=== PATIENT | female | born 1935 | race Caucasian/White ===

== ENCOUNTER → 2016-10-14 | Outpatient (REF) | payer OTHER | LOC: M LAB REF 16:23 | PROVIDERS: ATTEND Surgery | DX: C44.729 Squamous cell carcinoma of skin of left lower limb, including hip (principal) ==

== ENCOUNTER 2016-10-26 09:43 | Inpatient (IN) | payer OTHER ==
[~2016-10-26] VITALS: Ht 154.9 cm; Wt 93.4 kg
[2016-10-26] MEDS ORDERED: FUROSEMIDE 40 MG/4 ML VIAL (J1940) As Ordered ONE (10:41)
[2016-10-26 10:50] LABS: BASO # 0.1 K/mm3 (0.0-0.2); BASO % 1.4 % (0.0-1.0); EOS # 0.1 K/mm3 (0.0-0.50); EOS % 1.9 % (0.0-3.0); LARGE UNSTAINED CELL # 0.1 K/mm3 (0.0-0.4); LARGE UNSTAINED CELL % 1.7 % (0.0-4.0); LYMPH # 1.5 K/mm3 (1.5-4.5); LYMPH % 22.9 % (24.0-44.0); MEAN CORPUSCULAR HGB CONC 32.6 g/dl (32.0-36.5); MONO # 0.4 K/mm3 (0.0-0.8); MONO % 6.9 % (0.0-5.0); NEUTROPHILS # 3.9 K/mm3 (1.8-7.7); NEUTROPHILS % 65.3 % (36.0-66.0); PLATELET COUNT, AUTOMATED 181 k/mm3 (150-450); RED CELL DISTRIBUTION WIDTH 14.9 % (11.5-14.5); WHITE BLOOD COUNT 5.9 K/mm3 (4.0-10.0)
[2016-10-26 11:04] LABS: ANION GAP 11 MEQ/L (8-16); BLOOD UREA NITROGEN 20 MG/DL (7-18); CALCIUM LEVEL 9.9 MG/DL (8.8-10.2); CARBON DIOXIDE LEVEL 27 MEQ/L (21-32); CHLORIDE LEVEL 105 MEQ/L (98-107); GLOMERULAR FILTRATION RATE 56.8 (>32); GLUCOSE, FASTING 106 MG/DL (83-110); MAGNESIUM LEVEL 1.9 MG/DL (1.8-2.4); POTASSIUM SERUM 3.8 MEQ/L (3.5-5.1); SODIUM LEVEL 143 MEQ/L (136-145)
[2016-10-26] MEDS ORDERED: METOPROLOL TART 25 MG TABLET As Ordered ONE (11:12)
[2016-10-26] MEDS ORDERED: METOPROLOL 5 MG/5 ML VIAL As Ordered ONE (11:12)
--- NOTE | 2016-10-26 11:23 | REP ---
CHEST, ONE VIEW: HISTORY: Shortness of breath. COMPARISON: 07/08/2006 An increase in interstitial markings is present in the lungs. The cardiac silhouette is enlarged. The pulmonary vasculature is prominent. IMPRESSION: Findings consistent with congestive heart failure. Signed by Curt Sullivan MD 10/26/2016 11:47 A
[2016-10-26] MEDS ORDERED: DIGOXIN INJ 0.5 MG/2 ML AMP (J1160) As Ordered ONE (13:04)
[2016-10-26] MEDS ORDERED: PLAV75TA38 PO (13:15)
[2016-10-26] MEDS ORDERED: GLUC500T53 PO (13:15)
[2016-10-26] MEDS ORDERED: CALC600T57 PO (13:15)
[2016-10-26] MEDS ORDERED: PROT1TAB2 PO (13:15)
[2016-10-26] MEDS ORDERED: MULT1TAB8 PO (13:15)
[2016-10-26] MEDS ORDERED: ACETAMINOPHEN TAB 650MG DOSE (2X325MG) PO PRN (13:15)
[2016-10-26] MEDS ORDERED: ZOCO20TA PO (13:15)
[2016-10-26] MEDS ORDERED: GABA600T PO (13:15)
[2016-10-26] MEDS ORDERED: LASI40TA PO (13:15)
[2016-10-26] MEDS ORDERED: MELA10TA4 PO (13:19)
[2016-10-26] MEDS ORDERED: MELO15TA4 PO (13:19)
[2016-10-26] MEDS ORDERED: METO-207 PO (13:19)
[2016-10-26] MEDS ORDERED: OMEG100011 PO (13:19)
[2016-10-26] MEDS ORDERED: TYLE650T35 PO (13:19)
[2016-10-26] MEDS ORDERED: GARL1CAP PO (13:19)
[2016-10-26] MEDS ORDERED: VITA100066 PO (13:19)
[2016-10-26] MEDS ORDERED: VALS160T PO (13:19)
[2016-10-26] MEDS ORDERED: OCUVTAB PO (13:19)
[2016-10-26] MEDS ORDERED: AMLO5TAB2 PO (13:19)
[2016-10-26] MEDS ORDERED: VITA10006 PO (13:19)
[2016-10-26 15:20] VITALS: BP 117/78
--- NOTE | 2016-10-26 16:28 | EDDOCDS ---
Nurse's Notes [facility] Name: Chantal Bush Age: 81 yrs Sex: Female : 1935 Arrival Date: 10/26/2016 Time: 09:43 Bed 10 Private MD: Juan Kimbrough Diagnosis: Persistent atrial fibrillation;Acute systolic (congestive) heart failure Presentation: 10/26 09:51 Presenting complaint: Patient states: SOB and cough for past week. seen at urgent care [facility] today dx with new onset a fib. non productive cough. denies chest pain. Adult Sepsis Screening: The patient does not have new or worsening altered mentation. Patient's respiratory rate is less than 22. Systolic blood pressure is greater than 100. Patient has a qSOFA score of 0- Negative Sepsis Screen. Transition of care: Patient was received from [facility]. 09:51 Acuity: JACKIE Level 2 [facility] 09:51 Method Of Arrival: Wheelchair [facility] 10:01 Suicide/Homicide risk assessment- the patient denies having any suicidal and/or [facility] homicidal ideations and does not present with any other emotional, behavioral or mental health complaints. Status: Patient is not a surgical services asst or dependent. Triage Assessment: 10:12 General: Appears in no apparent distress, Behavior is appropriate for age, cooperative. [facility] Pain: Denies pain. Historical: - Allergies: PENICILLINS; Aspirin (Hives); Scopolamine HBr; - Home Meds: 1. Lasix 40 mg Oral tab 1 tab once daily (Last dose: 10/26/2016 07:30) 2. Protonix 40 mg Oral TbEC 1 tab once daily (Last dose: 10/26/2016 07:30) 3. Plavix 75 mg Oral tab 1 tab once daily (Last dose: 10/26/2016 07:30) 4. multivitamin Oral cap 1 tablet daily (Last dose: 10/26/2016 07:30) 5. calcium and vitamin d 600 daily (Last dose: 10/25/2016 21:00) 6. simvastatin 20 mg Oral tab 1 tab once daily (Last dose: 10/25/2016 21:00) 7. Glucosamine oral oral daily (Last dose: 10/26/2016 07:30) 8. gabapentin 600 mg oral Tb24 twice a day (Last dose: 10/26/2016 07:30) 9. garlic 1,000 mg oral cap nightly (Last dose: 10/25/2016 21:00) 10. meloxicam 15 mg oral tab 1 tab once daily (Last dose: 10/26/2016 07:30) 11. metoprolol succinate 50 mg Tb24 1 tab nightly (Last dose: 10/25/2016 21:00) 12. Vitamin C 1,000 mg Oral tab twice a day (Last dose: 10/26/2016 07:30) 13. [place]-3 oral 4 tabs oral daily (Last dose: 10/26/2016 07:30) 14. Tylenol Arthritis Pain 650 mg oral TbER 2 tabs twice a day (Last dose: 10/26/2016 07:30) 15. Ocuvite oral 1 tab oral twice a day (Last dose: 10/26/2016 07:30) 16. Vitamin D3 1,000 unit oral chew daily (Last dose: 10/25/2016 21:00) 17. melatonin 10 mg Oral tab nightly (Last dose: 10/25/2016 21:00) 18. amlodipine 5 mg oral tab once daily (Last dose: 10/25/2016 21:00) 19. valsartan-hydrochlorothiazide 160-12.5 mg oral tab 1 tab once daily (Last dose: 10/26/2016 07:30) - PMHx: Hypercholesterolemia; Hypertension; cancer cervical; Arthritis; - PSHx: Hysterectomy; right hip rplacement; toe nail removal; Adenoidectomy; Tonsillectomy; Appendectomy; foot surgery; Bunion Surgery; Hemorrhoidectomy; - The history from nurses notes was reviewed: and I agree with what is documented. - Family history: Not pertinent. - Social history: Smoking status: Patient states was never smoker of tobacco. No barriers to communication noted, The patient speaks fluent Thai, Speaks appropriately for age. - : The pt / caregiver states he / she is on anticoagulants: Plavix. Home medication list is obtained from the patient. - Hospitalizations: : No recent hospitalization is reported. - Exposure Risk Screening:: None identified. - Immunization history:: All immunizations up-to-date. - Social history:: the patient is a non-smoker, the patient drinks alcohol, socially. Screenin:03 Screening information is obtained from the patient. Fall risk: No risks identified. js13 Assistance ADL's: requires no assistance with activities of daily living. Abuse/DV Screen: The patient / caregiver reports he/she is: not in a situation that causes fear, pain or injury. Nutritional screening: No deficits noted. Advance Directives: There is no active DNR order. home support is adequate. 10:13 Advance Directives: Currently, there is a health care proxy, larry hussein- daughter. [facility] There is an active DNR order but there is no copy available at this time. Assessment: 10:03 General: Appears in no apparent distress, Behavior is appropriate for age, cooperative. js13 Pain: Denies pain. Neurological: Level of Consciousness is awake, alert, obeys commands. Cardiovascular: Rhythm is atrial fibrillation with rapid ventricular response Chest pain is denied. Respiratory: Airway is patent Respiratory effort is even, unlabored, Respiratory pattern is regular, Breath sounds with rales bilaterally. in left lower lobe and right lower lobe Reports shortness of breath at rest on exertion. GI: Abdomen is obese, Bowel sounds Abd is soft and non tender. Derm: Skin is pink, warm & dry. 11:00 General: Appears in no apparent distress, comfortable, Behavior is appropriate for age, js13 cooperative. Pain: Denies pain. Neurological: Level of Consciousness is awake, alert, obeys commands. Cardiovascular: Rhythm is atrial fibrillation with rapid ventricular response Chest pain is denied. Respiratory: Airway is patent Respiratory effort is even, unlabored, Respiratory pattern is regular, Derm: Skin is pink, warm & dry. 12:12 Adult Sepsis Screening: The patient does not have new or worsening altered mentation. js13 Patient's respiratory rate is less than 22. Systolic blood pressure is greater than 100. Patient has a qSOFA score of 0- Negative Sepsis Screen. General: Appears in no apparent distress, comfortable, Behavior is appropriate for age, cooperative. Pain: Denies pain. Neurological: Level of Consciousness is awake, alert, obeys commands. Cardiovascular: Rhythm is atrial fibrillation with rapid ventricular response Chest pain is denied. Respiratory: Airway is patent Respiratory effort is even, unlabored, Respiratory pattern is regular, symmetrical. GI: Abdomen is obese. Derm: Skin is pink, warm & dry. 13:36 General: Appears in no apparent distress, comfortable, Behavior is appropriate for age, js13 cooperative. Pain: Denies pain. Neurological: Level of Consciousness is awake, alert, obeys commands. Cardiovascular: Rhythm is atrial fibrillation with rapid ventricular response Chest pain is denied. Respiratory: Airway is patent Respiratory effort is even, unlabored, Respiratory pattern is regular, symmetrical, Breath sounds with rales bilaterally. in left lower lobe and right lower lobe. Derm: Skin is pink, warm & dry. 14:34 Adult Sepsis Screening: The patient does not have new or worsening altered mentation. js13 Patient's respiratory rate is less than 22. Systolic blood pressure is greater than 100. Patient has a qSOFA score of 0- Negative Sepsis Screen. General: Appears in no apparent distress, comfortable, Behavior is appropriate for age, cooperative. Pain: Denies pain. Neurological: Level of Consciousness is awake, alert, obeys commands. Cardiovascular: Rhythm is atrial fibrillation with rapid ventricular response Chest pain is denied. Respiratory: Airway is patent Respiratory effort is even, unlabored, Respiratory pattern is regular, symmetrical, Breath sounds with rales bilaterally. in right lower lobe and left lower lobe. GI: Abdomen is obese. Derm: Skin is pink, warm & dry. Vital Signs: 09:45 BP 109 / 66; Pulse 153; Resp 22; Pulse Ox 98% on R/A; Weight 99.79 kg; Height 5 ft. 1 js13 in. (154.94 cm); Pain 0/10; 10:07 Temp 98.0(TE); dem1 10:22 BP 129 / 93 (auto/); js13 10:22 Pulse 144 MON; Resp 18; Pulse Ox 97% on 2 lpm NC; js13 10:37 BP 109 / 76 (auto/); js13 10:37 Pulse 144 MON; Resp 18; Pulse Ox 97% on 2 lpm NC; js13 11:15 BP 131 / 89 (auto/); js13 11:15 Pulse 162 MON; Resp 18; Pulse Ox 98% on 2 lpm NC; js13 11:20 BP 123 / 81 (auto/); js13 11:20 Pulse 136 MON; Resp 18; Pulse Ox 98% on 2 lpm NC; js13 11:27 BP 128 / 88 (auto/); js13 11:27 Pulse 132 MON; Resp 18; Pulse Ox 98% on 2 lpm NC; js13 11:29 BP 122 / 83 (auto/); js13 11:29 Pulse 128 MON; Resp 18; Pulse Ox 98% on 2 lpm NC; js13 11:46 BP 107 / 80 (auto/); js13 11:46 Pulse 124 MON; Resp 16; Pulse Ox 99% on 2 lpm NC; js13 12:17 BP 99 / 62 (auto/); js13 12:17 Pulse 118 MON; Resp 18; Pulse Ox 99% on 2 lpm NC; js13 12:31 BP 101 / 64 (auto/); js13 12:31 Pulse 118 MON; Resp 18; Pulse Ox 97% on 2 lpm NC; js13 14:34 BP 108 / 66; Pulse 124 MON; Resp 18; Temp 98.1(O); Pulse Ox 98% on 2 lpm NC; js13 09:45 Body Mass Index 41.57 (99.79 kg, 154.94 cm) js13 11:15 FIRST DOSE OF LOPRESSOR IVP js13 11:20 SECOND DOSE OF LOPRESSOR IVP js13 11:27 THIRD DOSE OF LOPRESSOR IVP js13 Vitals: 09:45 Log In Time: October 26, 2016 at 09:43. cmb ED Course: 09:45 Patient visited by Consuelo Phipps. cmb 09:45 Juan Kimbrough is Private Physician. cmb 09:45 Patient moved to Waiting cmb 09:47 RN notified that patient meets Red Flag criteria. cmb 09:50 Jennifer Mera,RN is Primary Nurse. mcp 09:50 Fabiana Quiroz,RN is Primary Nurse. mcp 09:50 Patient moved to 10 mcp 09:52 Patient visited by Gilda Gomez, JENNIFER. srm 09:52 Triage Initiated srm 09:56 Tae Sarmiento MD is Attending Physician. pc 09:57 Patient visited by Galo Roberts. dem1 09:57 EKG done. (by ED staff). Reviewed by Tae Sarmiento MD. dem1 09:59 Patient visited by Janel Ortiz PCA. ct3 09:59 Accompanied by Friend, Patient has correct armband on for positive identification. ct3 Placed in gown. Bed in low position. Call light in reach. Side rails up X2. phototypesetting equipment monitor on. Pulse ox on. NIBP on. 10:03 The patient / caregiver is instructed regarding the plan of care and ED course. js13 10:03 Inserted saline lock: 18 gauge in left antecubital area and blood collected. The js13 patient tolerated the procedure well. No procedures done that require assistance. Labs drawn. (by ED staff). Sent per order to lab. Labs/Blood culture drawn. 10:08 Patient visited by Galo Roberts. dem1 10:39 Patient visited by Tae Sarmiento MD. pc 11:17 Patient visited by Galo Roberts. dem1 11:17 Assisted to bedside commode. dem1 11:23 [facility] Payment Agreement was scanned into [employer] and attached to record. mm15 11:41 Patient visited by Fabiana Quiroz RN. js13 11:45 Chest, 1 View Returned. EDMS 12:13 Patient visited by Fabiana Quiroz RN. js13 12:51 Patient visited by Janel Ortiz PCA. ct3 12:56 Deepika Loredo is Hospitalizing Provider. pc 14:05 Diet: Patient given regular meal. dem1 14:06 Patient visited by Galo Roberts. dem1 14:44 Primary Nurse role handed off by Jennifer Mera RN js13 16:08 Discontinued IV lock intact, bleeding controlled, pressure dressing applied. js13 16:09 Inserted saline lock: 20 gauge in right hand and blood collected. The patient tolerated js13 the procedure well. Administered Medications: 10:44 Drug: Furosemide 80 mg [furosemide 10 mg/mL injection solution (8 mL)] Route: IVP; js13 Site: left antecubital; 11:15 Drug: Metoprolol 25 mg [metoprolol tartrate 25 mg tablet (1 tabs)] Route: PO; 13 11:15 Drug: Metoprolol 5 mg [metoprolol 5 mg/5 mL intravenous solution (5 mL)] Route: IVP; js13 Site: left antecubital; 11:20 Drug: Metoprolol 5 mg [metoprolol 5 mg/5 mL intravenous solution (5 mL)] Route: IVP; js13 Site: left antecubital; 11:20 Follow up: Response: Cardiac Rhythm is unchanged js13 11:25 Drug: Metoprolol 5 mg [metoprolol 5 mg/5 mL intravenous solution (5 mL)] Route: IVP; js13 Site: left antecubital; 11:25 Follow up: Response: Cardiac Rhythm is unchanged js13 11:30 Follow up: Response: Cardiac Rhythm is unchanged js13 13:06 Drug: Digoxin 0.25 mg [digoxin 250 mcg/mL injection solution (1 mL)] Route: IVP; Site: [facility] left antecubital; Output: 12:11 Urine: 800.00ml (Voided); Total: 800.00ml. js13 14:00 Urine: 600.00ml (Voided); Total: 1400.00ml. 13 Order Results: Lab Order: B-Type Natiuretic Peptide; SPEC'M 10/26/16 10:00 Test: BRAIN NATRIURETIC PEPTIDE; Value: 944; Range: <100; Abnormal: Above high normal; Units: PG/ML; Status: F Lab Order: Basic Metabolic Profile; SPEC'M 10/26/16 10:00 Test: GLUCOSE, FASTING; Value: 106; Range: 83-110; Units: MG/DL; Status: F Test: BLOOD UREA NITROGEN; Value: 20; Range: 7-18; Abnormal: Above high normal; Units: MG/DL; Status: F Test: CREATININE FOR GFR; Value: 1.00; Range: 0.55-1.02; Units: MG/DL; Status: F Test: GLOMERULAR FILTRATION RATE; Value: 56.8; Range: >32; Status: F Test: SODIUM LEVEL; Value: 143; Range: 136-145; Units: MEQ/L; Status: F Test: POTASSIUM SERUM; Value: 3.8; Range: 3.5-5.1; Units: MEQ/L; Status: F Test: CHLORIDE LEVEL; Value: 105; Range: 98-107; Units: MEQ/L; Status: F Test: CARBON DIOXIDE LEVEL; Value: 27; Range: 21-32; Units: MEQ/L; Status: F Test: ANION GAP; Value: 11; Range: 8-16; Units: MEQ/L; Status: F Test: CALCIUM LEVEL; Value: 9.9; Range: 8.8-10.2; Units: MG/DL; Status: F Test Note: ; Units are mL/min/1.73 m2 Chronic Kidney Disease Staging per NKF: Stage I & II GFR >=60 Normal to Mildly Decreased Stage III GFR 30-59 Moderately Decreased Stage IV GFR 15-29 Severely Decreased Stage V GFR <15 Very Little GFR Left ESRD GFR <15 on SCRUB TECH Lab Order: CBC with Diff; SPEC'M 10/26/16 10:00 Test: WHITE BLOOD COUNT; Value: 5.9; Range: 4.0-10.0; Units: K/mm3; Status: F Test: RED BLOOD COUNT; Value: 4.77; Range: 4.00-5.40; Units: M/mm3; Status: F Test: HEMOGLOBIN; Value: 15.2; Range: 12.0-16.0; Units: g/dl; Status: F Test: HEMATOCRIT; Value: 46.7; Range: 36.0-47.0; Units: %; Status: F Test: MEAN CORPUSCULAR VOLUME; Value: 98.0; Range: 80.0-96.0; Abnormal: Above high normal; Units: fl; Status: F Test: MEAN CORPUSCULAR HEMOGLOBIN; Value: 32.0; Range: 27.0-33.0; Units: pg; Status: F Test: MEAN CORPUSCULAR HGB CONC; Value: 32.6; Range: 32.0-36.5; Units: g/dl; Status: F Test: RED CELL DISTRIBUTION WIDTH; Value: 14.9; Range: 11.5-14.5; Abnormal: Above high normal; Units: %; Status: F Test: PLATELET COUNT, AUTOMATED; Value: 181; Range: 150-450; Units: k/mm3; Status: F Test: NEUTROPHILS %; Value: 65.3; Range: 36.0-66.0; Units: %; Status: F Test: LYMPH %; Value: 22.9; Range: 24.0-44.0; Abnormal: Below low normal; Units: %; Status: F Test: MONO %; Value: 6.9; Range: 0.0-5.0; Abnormal: Above high normal; Units: %; Status: F Test: EOS %; Value: 1.9; Range: 0.0-3.0; Units: %; Status: F Test: BASO %; Value: 1.4; Range: 0.0-1.0; Abnormal: Above high normal; Units: %; Status: F Test: LARGE UNSTAINED CELL %; Value: 1.7; Range: 0.0-4.0; Units: %; Status: F Test: NEUTROPHILS #; Value: 3.9; Range: 1.8-7.7; Units: K/mm3; Status: F Test: LYMPH #; Value: 1.5; Range: 1.5-4.5; Units: K/mm3; Status: F Test: MONO #; Value: 0.4; Range: 0.0-0.8; Units: K/mm3; Status: F Test: EOS #; Value: 0.1; Range: 0.0-0.50; Units: K/mm3; Status: F Test: BASO #; Value: 0.1; Range: 0.0-0.2; Units: K/mm3; Status: F Test: LARGE UNSTAINED CELL #; Value: 0.1; Range: 0.0-0.4; Units: K/mm3; Status: F Lab Order: Cardiac Injury Profile; SPEC' 10/26/16 10:00 Test: CPK CREATINE PHOSPHOKINASE; Value: 37; Range: 26-192; Units: U/L; Status: F Test: CK-MB VALUE MASS; Value: 2.9; Range: 0.0-3.6; Units: NG/ML; Status: F Test: MB/CK RELATIVE INDEX; Value: 7.83; Range: < OR =4; Abnormal: Above high normal; Status: F Test Note: ; DIAGNOSIS CRITERIA MMB ng/ml Relative Index (RI) NON-AMI < or = 5 N/A DAIGLE ZONE > 5 < or = 4 AMI > 5 > 4 Lab Order: Troponin; SPEC' 10/26/16 10:00 Test: TROPONIN I; Value: < 0.02; Range: < 0.10; Units: NG/ML; Status: F Test Note: ; Troponin I Reference Interval for [facility] LOCI: 99th Percentile= 0.00-0.045 ng/ml Risk Stratification: <= 0.10 ng/ml Decreased Risk for Adverse Clinical Events. 0.10-1.50 ng/ml Increased Risk for Adverse Clinical Events. Evaluation of additional criterion and/or repeat testing in 2-6 hours is suggested to rule out myocardial damage. >= 1.50 ng/ml Indicative of Myocardial Injury. Lab Order: TSH with Free T4; SPEC'M 10/26/16 10:00 Test: THYROID STIMULATING HORMONE; Value: 6.320; Range: 0.358-3.740; Abnormal: Above high normal; Units: uIU/ML; Status: F Test: FREE T4; Value: 1.20; Range: 0.76-1.46; Units: NG/DL; Status: F Lab Order: Magnesium Level; SPEC'M 10/26/16 10:00 Test: MAGNESIUM LEVEL; Value: 1.9; Range: 1.8-2.4; Units: MG/DL; Status: F Radiology Order: Chest, 1 View Test: Chest, 1 View REASON FOR EXAMINATION: Shortness of Breath; CHEST, ONE VIEW:; ; HISTORY: Shortness of breath.; ; COMPARISON: 07/08/2006; ; An increase in interstitial markings is present in the lungs. The cardiac; silhouette is enlarged. The pulmonary vasculature is prominent.; ; IMPRESSION:; ; Findings consistent with congestive heart failure.; ; ; Signed by; Curt Sullivan MD 10/26/2016 11:47 A; Outcome: 12:56 Decision to Hospitalize by Provider. 14:36 Discharge Assessment: Patient awake, alert and oriented x 3. No cognitive and/or js13 functional deficits noted. Patient verbalized understanding of disposition instructions. patient administered narcotics - no. The following High Risk Discharge criteria are identified: None. Condition: stable. No special radiology studies were completed. Admission hand-off: Report Faxed. Property :Personal belongings accompany Pt. 15:20 Admission hand-off: Report Faxed Fax receipt verified by Bette Curry refrigeration unit repairer. Unit js13 warehouse shipping receiving clerk states that the Franchesca RN taking patient is busy doing two discharges and has not looked at SBAR yet and she will have RN call when she is ready.. 16:09 Admitted to PCU accompanied by nurse, accompanied by tech, family with patient, via js13 stretcher, with oxygen, on monitor, with chart. 16:27 Patient left the ED. js13 Signatures: Dispatcher [employer] Tae Byrne MD MD pc Michelson, Staci, RN RN srm Peters, Mary RN Janel Santiago mcp, LATIN PROFESSOR LATIN PROFESSOR ct3 Galo Roberts dem1 Fabiana Quiroz RN RN [facility] Consuelo Phipps cmb Uma Sherman mm15 Corrections: (The following items were deleted from the chart) 09:47 09:45 BP 109 / 66; Resp 24bpm; 99.79 kg; Height 5 ft. 1 in.; BMI: 41.5; Pain 0/10; cmb cmb 10:07 09:45 BP 109 / 66; Resp 22bpm; 99.79 kg; Height 5 ft. 1 in.; BMI: 41.5; Pain 0/10; cmb js13 10:17 10:12 Home Meds: diovan 160/12.5mg daily (Last Dose: Unknown); srm srm 10:17 10:12 Home Meds: Amlodipine Oral once daily (Last Dose: 10/25/2016 21:00); srm srm 12:59 10:03 Respiratory: Airway is patent Respiratory effort is even, unlabored, Respiratory js13 pattern is regular, Breath sounds are clear Reports shortness of breath at rest on exertion js13 MTDD
--- NOTE | 2016-10-26 16:28 | EDDOCDS ---
Physician Documentation [facility] Name: Chantal Bush Age: 81 yrs Sex: Female : 1935 Arrival Date: 10/26/2016 Time: 09:43 Bed 10 Private MD: Juan Kimbrough Disposition: 10/26 12:54 Critical Care:. pc Disposition: 10/26/16 12:56 Hospitalization ordered by Deepika Loredo for Inpatient Admission. Preliminary diagnosis are Persistent atrial fibrillation, Acute systolic (congestive) heart failure. - Bed requested for PCU. - Status is Inpatient Admission. [id number] - Condition is Stable. - Problem is new. - Symptoms have improved. HPI: 10:58 This 81 yrs old Female presents to ER via Wheelchair with complaints of pc Irregular Pulse. 10:58 The history is obtained from the patient, the patient's family/friend. She has been pc SOBOE for 2+ weeks, developed a non-productive cough a week ago and was found to be in AFib at an urgent care today. She denies any chest pain, fevers or chills. She does not take her Lasix every day as prescribed but did this morning. She has a current heart rate of 145 in AFib and she has no sensation of the same. At their worst, the symptoms were moderate. In the emergency department, the symptoms are moderate. The patient has not experienced similar symptoms in the past. Historical: - Allergies: PENICILLINS; Aspirin (Hives); Scopolamine HBr; - Home Meds: 1. Lasix 40 mg Oral tab 1 tab once daily (Last dose: 10/26/2016 07:30) 2. Protonix 40 mg Oral TbEC 1 tab once daily (Last dose: 10/26/2016 07:30) 3. Plavix 75 mg Oral tab 1 tab once daily (Last dose: 10/26/2016 07:30) 4. multivitamin Oral cap 1 tablet daily (Last dose: 10/26/2016 07:30) 5. calcium and vitamin d 600 daily (Last dose: 10/25/2016 21:00) 6. simvastatin 20 mg Oral tab 1 tab once daily (Last dose: 10/25/2016 21:00) 7. Glucosamine oral oral daily (Last dose: 10/26/2016 07:30) 8. gabapentin 600 mg oral Tb24 twice a day (Last dose: 10/26/2016 07:30) 9. garlic 1,000 mg oral cap nightly (Last dose: 10/25/2016 21:00) 10. meloxicam 15 mg oral tab 1 tab once daily (Last dose: 10/26/2016 07:30) 11. metoprolol succinate 50 mg Tb24 1 tab nightly (Last dose: 10/25/2016 21:00) 12. Vitamin C 1,000 mg Oral tab twice a day (Last dose: 10/26/2016 07:30) 13. [place]-3 oral 4 tabs oral daily (Last dose: 10/26/2016 07:30) 14. Tylenol Arthritis Pain 650 mg oral TbER 2 tabs twice a day (Last dose: 10/26/2016 07:30) 15. Ocuvite oral 1 tab oral twice a day (Last dose: 10/26/2016 07:30) 16. Vitamin D3 1,000 unit oral chew daily (Last dose: 10/25/2016 21:00) 17. melatonin 10 mg Oral tab nightly (Last dose: 10/25/2016 21:00) 18. amlodipine 5 mg oral tab once daily (Last dose: 10/25/2016 21:00) 19. valsartan-hydrochlorothiazide 160-12.5 mg oral tab 1 tab once daily (Last dose: 10/26/2016 07:30) - PMHx: Hypercholesterolemia; Hypertension; cancer cervical; Arthritis; - PSHx: Hysterectomy; right hip rplacement; toe nail removal; Adenoidectomy; Tonsillectomy; Appendectomy; foot surgery; Bunion Surgery; Hemorrhoidectomy; - The history from nurses notes was reviewed: and I agree with what is documented. - Family history: Not pertinent. - Social history: Smoking status: Patient states was never smoker of tobacco. No barriers to communication noted, The patient speaks fluent [place], Speaks appropriately for age. - : The pt / caregiver states he / she is on anticoagulants: Plavix. Home medication list is obtained from the patient. - Hospitalizations: : No recent hospitalization is reported. - Exposure Risk Screening:: None identified. - Immunization history:: All immunizations up-to-date. - Social history:: the patient is a non-smoker, the patient drinks alcohol, socially. ROS: 10:58 All systems are negative except as listed. pc Exam: 10:58 General Appearance: no acute distress, alert. pc 10:58 EENT: normal eye inspection, ears, nose and throat normal, pharynx normal, mucous membranes moist 10:58 Neck: The exam reveals no acute abnormalities. ROM is normal and painless. No nuchal rigidity is noted.. 10:58 Respiratory: no respiratory distress, chest non-tender, Breath sounds: rales, in the left posterior lower lobe and right posterior lower lobe. 10:58 CVS: strong peripheral pulses, normal capillary refill, the patient is tachycardic, at 145 bpm, irregularly irregular there is a murmur, diastolic, grade 1 out of 6. 10:58 Abdomen: soft, non-tender, no organomegaly, normal bowel sounds. 10:58 Back: normal inspection. 10:58 Skin: skin color is normal, warm, dry. 10:58 Extremities: with pedal edema noted, is 3+ edema bilaterally 10:58 Neuro: oriented x 3, cranial nerves normal as tested, no motor deficits, no sensory deficits. 10:58 Psych: normal mood. Vital Signs: 09:45 BP 109 / 66; Pulse 153; Resp 22; Pulse Ox 98% on R/A; Weight 99.79 kg / 220 lbs; Height js13 5 ft. 1 in. (154.94 cm); Pain 0/10; 10:07 Temp 98.0(TE); dem1 10:22 BP 129 / 93 (auto/); js13 10:22 Pulse 144 MON; Resp 18; Pulse Ox 97% on 2 lpm NC; js13 10:37 BP 109 / 76 (auto/); js13 10:37 Pulse 144 MON; Resp 18; Pulse Ox 97% on 2 lpm NC; js13 11:15 BP 131 / 89 (auto/); js13 11:15 Pulse 162 MON; Resp 18; Pulse Ox 98% on 2 lpm NC; js13 11:20 BP 123 / 81 (auto/); js13 11:20 Pulse 136 MON; Resp 18; Pulse Ox 98% on 2 lpm NC; js13 11:27 BP 128 / 88 (auto/); js13 11:27 Pulse 132 MON; Resp 18; Pulse Ox 98% on 2 lpm NC; js13 11:29 BP 122 / 83 (auto/); js13 11:29 Pulse 128 MON; Resp 18; Pulse Ox 98% on 2 lpm NC; js13 11:46 BP 107 / 80 (auto/); js13 11:46 Pulse 124 MON; Resp 16; Pulse Ox 99% on 2 lpm NC; js13 12:17 BP 99 / 62 (auto/); js13 12:17 Pulse 118 MON; Resp 18; Pulse Ox 99% on 2 lpm NC; js13 12:31 BP 101 / 64 (auto/); js13 12:31 Pulse 118 MON; Resp 18; Pulse Ox 97% on 2 lpm NC; js13 14:34 BP 108 / 66; Pulse 124 MON; Resp 18; Temp 98.1(O); Pulse Ox 98% on 2 lpm NC; js13 09:45 Body Mass Index 41.57 (99.79 kg, 154.94 cm) js13 11:15 FIRST DOSE OF LOPRESSOR IVP js13 11:20 SECOND DOSE OF LOPRESSOR IVP js13 11:27 THIRD DOSE OF LOPRESSOR IVP 13 MDM: 09:52 ECG WITH READING ER PHYS+CARDIAG ordered. EDMS 10:40 Furosemide 80 mg IVP once ordered. pc 10:40 Ethnoarchaeologist/Pulse Ox/q 15 min VS ordered. pc 10:40 IV Saline Lock ordered. pc 10:40 Oxygen at 4L/Min NC or Home dosage ordered. pc 10:40 Rhythm Strip to chart ordered. pc 10:41 B-Type Natiuretic Peptide Ordered. EDMS 10:41 Basic Metabolic Profile Ordered. EDMS 10:41 CBC with Diff Ordered. EDMS 10:41 Cardiac Injury Profile Ordered. EDMS 10:41 Troponin Ordered. EDMS 10:41 TSH with Free T4 Ordered. EDMS 10:41 Magnesium Level Ordered. EDMS 10:41 Chest, 1 View Ordered. EDMS 10:58 Differential Diagnosis: AFib - new onset with no clear time of onset; CHF; pc noncompliance. Plan: labs, EKG, CXR. Test interpretation: EKG. 11:08 B-Type Natiuretic Peptide Reviewed. pc 11:08 Basic Metabolic Profile Reviewed. pc 11:08 CBC with Diff Reviewed. pc 11:08 Troponin Reviewed. pc 11:08 Magnesium Level Reviewed. pc 11:09 Metoprolol (Tartrate) 25 mg PO once ordered. pc 11:09 Metoprolol 5 mg IVP every 5 minutes; Hold for SBP < 100 or HR < 60. x3 ordered. pc 11:11 TSH with Free T4 Reviewed. pc 11:12 Basic Metabolic Profile Reviewed. pc 11:12 Cardiac Injury Profile Reviewed. pc 11:12 TSH with Free T4 Reviewed. pc 11:12 Troponin Reviewed. pc 11:12 Magnesium Level Reviewed. pc 11:20 Financial registration complete. mm15 11:23 [facility] Payment Agreement was scanned into [employer] and attached to record. mm15 12:39 Chest, 1 View Reviewed. pc 12:39 BED REQUEST+ADM ordered. EDMS 12:53 Digoxin 0.25 mg IVP once ordered. pc 12:54 Data reviewed: old medical records, vital signs, nurses notes, EKG(s), lab test pc results, all radiology studies and available results. Test interpretation: LAB - all labs as ordered have been reviewed, interpreted and considered in the overall management of the clinical presentation; X-RAY - interpreted by Radiologist and personally reviewed, 1 view chest congestive heart failure. The patient has been re-examined and re-evaluated. The patient's symptoms have mildly improved after treatment. Physician consultation: Dr. Hadley Hughes was contacted at 12:55, regarding consult. 12:54 Physician consultation: Dr. Deepika Loredo was contacted at 12:55, regarding admission. pc Disposition: The historical points, examination findings, and any diagnostic results supporting the provided diagnosis, were discussed with the patient or legal guardian. The need for further work-up and/or treatment in the hospital was explained. 13:22 Admission / Observation Status ordered. EDMS 13:22 NO ADDED SALT DIET ordered. EDMS 13:34 ECHOCARD,DOPPLER/COLOR FLOW ordered. EDMS 13:34 TROPONIN Ordered. EDMS 13:34 TROPONIN Ordered. EDMS EC:58 Rate is 146 beats/min. Rhythm is irregularly irregular, A fib. QRS [place] is Normal. QRS pc interval is normal. QT interval is normal. No Q waves. T waves are Normal. ST Segment is depressed in leads II, aVL, V4, V5, V6. Clinical impression: Nonspecific ST-T changes and Atrial Fibrillation with RVR. Administered Medications: 10:44 Drug: Furosemide 80 mg [furosemide 10 mg/mL injection solution (8 mL)] Route: IVP; js13 Site: left antecubital; 11:15 Drug: Metoprolol 25 mg [metoprolol tartrate 25 mg tablet (1 tabs)] Route: PO; 13 11:15 Drug: Metoprolol 5 mg [metoprolol 5 mg/5 mL intravenous solution (5 mL)] Route: IVP; 13 Site: left antecubital; 11:20 Drug: Metoprolol 5 mg [metoprolol 5 mg/5 mL intravenous solution (5 mL)] Route: IVP; 13 Site: left antecubital; 11:20 Follow up: Response: Cardiac Rhythm is unchanged 13 11:25 Drug: Metoprolol 5 mg [metoprolol 5 mg/5 mL intravenous solution (5 mL)] Route: IVP; 13 Site: left antecubital; 11:25 Follow up: Response: Cardiac Rhythm is unchanged 13 11:30 Follow up: Response: Cardiac Rhythm is unchanged 13 13:06 Drug: Digoxin 0.25 mg [digoxin 250 mcg/mL injection solution (1 mL)] Route: IVP; Site: [facility] left antecubital; Critical Care Time: 12:54 Critical care time: Bedside Care: 25 minutes, Consultation: 20 minutes, Family pc Intervention: 15 minutes. Total time: 60 minutes Signatures: Dispatcher [employer] Tae Byrne MD MD pc Michelson, Staci, RN RN srm Reynaldo Houser RN RN [id number] Fabiana Quiroz RN RN js13 Uma Sherman mm15 The chart was reviewed and I authenticate all verbal orders and agree with the evaluation and treatment provided.Corrections: (The following items were deleted from the chart) 10:17 10:12 Home Meds: diovan 160/12.5mg daily (Last Dose: Unknown); srm srm 10:17 10:12 Home Meds: Amlodipine Oral once daily (Last Dose: 10/25/2016 21:00); srm srm 11:10 10:58 She has been SOBOE for 2+ weeks, developed a non-productive cough a week ago and pc was found to be in AFib at an urgent care today. She denies any chest pain, fevers or chills. She does not take her Lasix every day as prescribed but did this morning. pc Attachments: 11:23 [facility] Payment Agreement mm15 MTDD
[2016-10-26 16:40] VITALS: BP_SYST 104
--- NOTE | 2016-10-26 17:11 | HPE ---
DATE OF ADMISSION: 10/26/2016 PRIMARY CARE PROVIDER: Dr. Juan Kimbrough REASON FOR ADMISSION: Shortness of breath. HISTORY OF PRESENT ILLNESS: The patient is an 81-year-old female with a past medical history significant for hypertension, hyperlipidemia, history of cervical cancer, lower extremity edema, who presented to the emergency room complaining of shortness of breath that has been getting worse over the past week. She was seen today at an urgent care clinic. She was found to be in atrial fibrillation. The patient stated that over the past week her shortness of breath has been getting progressively worse. Last night, she was unable to sleep or lay flat. She has been having a nonproductive cough. Denies any chest pain. Denies any palpitations. Denies any fevers but has been complaining of some chills. She states her shortness of breath is also worse with activity. The patient denies any cardiac workup in the past and was never seen by cardiology. In the emergency room, the patient was found to have a heart rate in the 150s and 140s. She was given multiple doses of metoprolol, oral and IV. Her heart rate came down 120s. However, her blood pressure also dropped to 99/62. Dr. Hughes was called from the emergency room. He recommended to start the patient on digoxin and she got a loading dose of 0.25. During my examination, the patient denied any chest pain or palpitations. Denied any fevers or chills. She was, however, complaining of some shortness of breath but stated it has improved. She was on two liters of nasal cannula. She appears comfortable. Denied any nausea, vomiting, or diarrhea. No other symptoms. REVIEW OF SYSTEMS: A 12-point review of systems was obtained. All of which was negative except for those mentioned above. PAST MEDICAL HISTORY: Significant for: 1. Hypertension. 2. Hyperlipidemia. 3. History of cervical cancer. 4. History of arthritis. 5. History of lower extremity edema. 6. History of skin squamous cell carcinoma. PAST SURGICAL HISTORY: Significant for: 1. Hysterectomy. 2. Right hip replacement. 3. Toenail removal. 4. Adenoidectomy. 5. Tonsillectomy. 6. Appendectomy. 7. Bunion surgery. 8. Hemorrhoidectomy. SOCIAL HISTORY: The patient denies any tobacco or alcohol use. Lives at home alone. FAMILY HISTORY: Noncontributory. ALLERGIES: PENICILLIN reaction hives, ASPIRIN reaction hives, SCOPOLAMINE PATCH reaction vertigo. HOME MEDICATIONS: - acetaminophen 1300 mg by mouth twice a day - amlodipine 5 mg by mouth at bedtime - vitamin C 1000 mg by mouth twice a day - calcium and vitamin D one tablet by mouth daily - vitamin D 1000 units by mouth daily - Plavix 75 mg by mouth daily - Lasix 40 mg by mouth daily - gabapentin 600 mg by mouth twice a day - glucosamine 500 mg by mouth daily - garlic 1000 mg by mouth at bedtime - melatonin 10 mg at bedtime - meloxicam 50 mg by mouth daily - metoprolol 50 mg at bedtime - multivitamin one tablet daily - Ocuvite one tablet by mouth twice a day - omega-3 one tablet by mouth daily - Protonix 40 mg by mouth daily - Zocor 20 mg at bedtime - valsartan/HCTZ one tablet by mouth daily The patient stated that she has not been taking her Lasix regularly, has been keeping doses stating that she was told to only take it as needed. She took a dose this morning and the dose prior to that was a week ago. FAMILY HISTORY: Noncontributory. PHYSICAL EXAMINATION: VITAL SIGNS: On admission, blood pressure 109/66, pulse 153, respiratory rate 22, temperature 98, pulse oximetry 98% on room air. HEENT: Pupils are equal, round, and reactive to light and accommodation. NECK: Supple. No jugular venous distention (JVD). LUNGS: Clear to auscultation bilaterally. CARDIOVASCULAR: Irregular rate and rhythm. ABDOMEN: Soft, nontender, nondistended. EXTREMITIES: +2 edema bilaterally. SKIN: No obvious lesions. NEUROLOGIC: Cranial nerves II-XII grossly intact. No focal deficits. LABORATORY FINDINGS: WBC is 5.9, hemoglobin 15.2, hematocrit 46.7, platelet count 181. Sodium 143, potassium 3.8, chloride 105, BUN 20, creatinine 1, fasting glucose 106, magnesium 1.9, troponin less than 0.02, BNP 944, TSH 6.32, T4 1.2. Chest x-ray finding consistent with congestive heart failure. ASSESSMENT AND PLAN: 1. Acute congestive heart failure. The patient has no prior history of congestive heart failure. However, the patient had an elevated brain natriuretic peptide (BNP) of 944. Chest x-ray showed signs of congestive heart failure. The patient had bilateral lower extremity edema. She received one dose of Lasix in the emergency room, 80 mg IV. We will resume IV Lasix 40 mg every eight hours with hold parameters, to hold for a systolic blood pressure of less than 100. We will order an echocardiogram. The patient has no history of an echocardiogram. Dr. Hughes was called from the emergency room. We will defer to primary care for cardiac consultation. She received one dose of digoxin 0.25 in the emergency room. We will resume digoxin at 0.125 mg by mouth daily. We will continue to monitor input and output and daily weights. Continue oxygen therapy to titrate, keep oxygen above 90%. 2. Atrial fibrillation with rapid ventricular response, likely secondary to congestive heart failure. The patient received metoprolol 25 mg orally and two doses of 5 mg IV as well as one dose of digoxin 0.25. We will continue with daily digoxin and we will continue the patient's metoprolol with hold parameters for a blood pressure of less than 100 or a heart rate of less than 60. We will start the patient on Eliquis 5 mg by mouth twice a day. Echocardiogram pending. The patient will likely need a cardiology referral outpatient. We will monitor the patient on telemetry. 3. History of hypertension. Blood pressure is currently controlled. We will hold the patient's amlodipine as well as hydrochlorothiazide (HCTZ) and valsartan. Continue metoprolol and Lasix. 4. Hyperlipidemia. Continue the patient's simvastatin 20 mg by mouth daily. 5. History of arthritis. Continue gabapentin 600 mg twice a day. 6. Deep vein thrombosis (DVT) prophylaxis. The patient was started on Eliquis twice a day. The patient will be seen by Dr. Briseno in the morning.
[2016-10-26] MEDS ORDERED: DIGOXIN INJ 0.5 MG/2 ML AMP (J1160) IV ONE (18:15)
[2016-10-26] MEDS: OMEGA-3 1050MG CAPSULE PO SCH (18:24)
[2016-10-26] MEDS ORDERED: FUROSEMIDE 40 MG/4 ML VIAL (J1940) IV SCH (19:00)
[2016-10-26 20:00] VITALS: BP_SYST 90
[2016-10-26] MEDS ORDERED: METOPROLOL SUCC (TopROL XL) 50MG **XL** TAB PO SCH (21:00)
[2016-10-26 21:20] VITALS: BP_SYST 130
[2016-10-26] MEDS: GABAPENTIN 300 MG CAP PO SCH (21:24)
[2016-10-26] MEDS: ASCORBIC ACID 500 MG TAB PO SCH (21:25)
[2016-10-26] MEDS: VITAMIN D 1,000 INTERNATIONAL UNITS TABLET PO SCH (21:25)
[2016-10-26] MEDS: SIMVASTATIN 20 MG TAB PO SCH (21:25)
[2016-10-26] MEDS: APIXABAN 5 MG TAB (ELIQUIS) PO SCH (21:25)
[2016-10-26] MEDS: OCUVITE 1 TAB PO SCH (21:25)
[2016-10-26 23:59] VITALS: BP 142/89
[2016-10-26] MEDS: FUROSEMIDE 40 MG/4 ML VIAL (J1940) IV SCH (23:59)
[2016-10-27] VITALS (7 sets, daily range): BP systolic 90–133; BP diastolic 60–70
[2016-10-27] MEDS ORDERED: SLF 3 ML SYR IV PRN (01:15)
[2016-10-27] MEDS: SLF 3 ML SYR IV SCH ×3 (05:57→22:00)
[2016-10-27] MEDS ORDERED: DIGOXIN 0.125 MG TAB As Ordered ONE (06:06)
[2016-10-27 06:14] LABS: BASO # 0.1 K/mm3 (0.0-0.2); BASO % 1.1 % (0.0-1.0); EOS # 0.2 K/mm3 (0.0-0.50); EOS % 2.6 % (0.0-3.0); LARGE UNSTAINED CELL # 0.1 K/mm3 (0.0-0.4); LARGE UNSTAINED CELL % 1.4 % (0.0-4.0); LYMPH # 2.4 K/mm3 (1.5-4.5); LYMPH % 27.9 % (24.0-44.0); MONO # 0.7 K/mm3 (0.0-0.8); MONO % 8.9 % (0.0-5.0); NEUTROPHILS # 4.8 K/mm3 (1.8-7.7); NEUTROPHILS % 58.1 % (36.0-66.0); PLATELET COUNT, AUTOMATED 161 k/mm3 (150-450); RED CELL DISTRIBUTION WIDTH 14.7 % (11.5-14.5); WHITE BLOOD COUNT 8.2 K/mm3 (4.0-10.0)
[2016-10-27 06:37] LABS: ALBUMIN 3.5 GM/DL (3.2-5.2); ALBUMIN/GLOBULIN RATIO 1.03 (1.00-1.93); ALKALINE PHOSPHATASE 184 U/L (45-117); ALT/SGPT 41 U/L (12-78); ANION GAP 11 MEQ/L (8-16); AST/SGOT 23 U/L (15-37); BLOOD UREA NITROGEN 23 MG/DL (7-18); CALCIUM LEVEL 9.4 MG/DL (8.8-10.2); CARBON DIOXIDE LEVEL 30 MEQ/L (21-32); CHLORIDE LEVEL 103 MEQ/L (98-107); CREATININE FOR GFR 0.99 MG/DL (0.55-1.02); GLOMERULAR FILTRATION RATE 57.5 (>32); GLUCOSE, FASTING 94 MG/DL (83-110); MAGNESIUM LEVEL 1.6 MG/DL (1.8-2.4); POTASSIUM SERUM 3.3 MEQ/L (3.5-5.1); SODIUM LEVEL 144 MEQ/L (136-145); TOTAL PROTEIN 6.9 GM/DL (6.4-8.2)
--- NOTE | 2016-10-27 07:55 | ECGEPIP ---
Stationary ECG Study [facility] - ED Test Date: 2016-10-26 Pat Name: MICHAEL FIGUEROA Department: Room: - Gender: F Potato Loader: ct : 1935 Requested By: Tae Degroot Order Number: [id number] Reading MD: Etta Sterling Measurements Intervals Turner Rate: 146 P: IA: 0 QRS: 1 QRSD: 87 T: 0 QT: 124 QTc: 193 Interpretive Statements ATRIAL FIBRILLATION WITH RAPID VENTRICULAR RESPONSE NONSPECIFIC ST & T-WAVE ABNORMALITY ABNORMAL RHYTHM ECG PRIOR SINUS RHYTHM 10/01/14 Electronically Signed On 10-27-2016 7:55:10 EST by Etta Sterling
[2016-10-27] MEDS: FUROSEMIDE 40 MG/4 ML VIAL (J1940) IV SCH ×2 (08:00→16:35)
[2016-10-27] MEDS ORDERED: DIGOXIN 0.125 MG TAB PO SCH (09:00)
[2016-10-27] MEDS ORDERED: MIRALAX *UNIT DOSE* 17GM PACKET PO SCH (09:00)
[2016-10-27] MEDS ORDERED: CARVedilol 3.125 MG TAB PO SCH (09:00)
[2016-10-27] MEDS ORDERED: MELOXICAM (MOBIC) 7.5 MG TAB PO SCH (09:00)
[2016-10-27] MEDS: OMEGA-3 1050MG CAPSULE PO SCH (09:23)
[2016-10-27] MEDS: OCUVITE 1 TAB PO SCH ×2 (09:23→21:27)
[2016-10-27] MEDS: PANTOPRAZOLE 40MG TAB (PROTONIX) PO SCH (09:24)
[2016-10-27] MEDS: ASCORBIC ACID 500 MG TAB PO SCH ×2 (09:24→21:27)
[2016-10-27] MEDS: GABAPENTIN 300 MG CAP PO SCH ×2 (09:24→21:26)
[2016-10-27] MEDS: APIXABAN 5 MG TAB (ELIQUIS) PO SCH ×2 (09:24→21:27)
[2016-10-27] MEDS ORDERED: POTASSIUM CHLORIDE 10 MEQ SR TABLET PO ONE (09:45)
--- NOTE | 2016-10-27 09:48 | IPN ---
DATE: 10/27/2016 81-year-old female seen at bedside. No overnight issues reported. She feels less short of breath. Denies chest pain or palpitations. No abdominal pain. No nausea or vomiting. OBJECTIVE: Temperature 96.7, pulse 125 and irregular, respiratory rate is 20, blood pressure (BP) is 107/35, SPO2 95% on room air. General: The patient appears to be in no acute distress. She is alert and oriented, pleasant talk to. HEENT: Unremarkable. Jugular venous distention (JVD) is approximately 3 cm in the neck. Lungs: Clear. Heart: Irregular regular. Abdomen is soft, obese, nontender. Positive bowel sounds. No masses or rebound. Extremities: Trace edema at the ankles. LABORATORY DATA: White count is 8.2, hemoglobin is 15.2, and platelets are 161,000. Sodium 144, potassium 3.3 - which we will supplement, chloride 103, bicarb 30, anion gap 11, BUN is 23, creatinine 0.99, glucose 94, magnesium 1.6, total bilirubin 1.0, AST 23, ALT 41, alkaline phosphatase 184, troponin less than 0.02 times three, albumin is 3.5, TSH 6.320; however, free T4 is 1.20 - within normal limits. ASSESSMENT AND PLAN: 1. New onset/acute exacerbation of congestive heart failure. No prior history. She has diuresed well through the evening. Her BNP initially was 944. Chest x-ray did show signs consistent with congestive heart failure (CHF). 2-D echo is pending at this time. She continues on net negative Lasix with hold parameters. She received a dose yesterday of 0.25 mg digoxin and resumed digoxin 0.125 by mouth daily this morning. However, I am going to go ahead and load her with digoxin and check a digoxin toxicity on her tomorrow morning. 2. Atrial fibrillation with rapid ventricular rate (RVR). She is on metoprolol with hold parameters. Digoxin will be loaded more effectively. Her CHADS-VASc score is high enough to consider anticoagulation therapy and she has already been started on Eliquis. Again, echocardiogram is pending. Will continue on telemetry and likely will need outpatient cardiology followup. 3. Hypertension. Amlodipine and hydrochlorothiazide are on hold. Continue with metoprolol and Lasix with hold parameters. 4. Hyperlipidemia. Continue simvastatin. 5. History of arthritis and chronic back pain. Continue with gabapentin. 6. Deep vein thrombosis (DVT) prophylaxis. The patient's Plavix has been switched to Eliquis. 7. Regarding the elevated TSH, but normal T4, will repeat a thyroid panel in the morning. 8. Hypokalemia/hypomagnesemia, likely related to diuretics. We will supplement and continue to follow electrolytes daily.
[2016-10-27] MEDS: MAGNESIUM OXIDE 400 MG TAB (MAG-OX) PO SCH (10:24)
[2016-10-27] MEDS: METAMUCIL (PSYLLIUM) PACKET PO SCH (10:25)
[2016-10-27] MEDS: DIGOXIN INJ 0.5 MG/2 ML AMP (J1160) IV SCH ×5 (10:25→18:07)
[2016-10-27] MEDS ORDERED: POTASSIUM CHLORIDE 10% LIQ 20 MEQ/15 ML UDC PO ONE (20:00)
[2016-10-27] MEDS ORDERED: SPIRONOLACTONE 25 MG TAB PO ONE (21:15)
[2016-10-27] MEDS ORDERED: traMADol 50 MG TAB PO PRN (21:15)
[2016-10-27] MEDS ORDERED: METOPROLOL TART 50 MG TAB PO ONE (21:15)
[2016-10-27] MEDS: VITAMIN D 1,000 INTERNATIONAL UNITS TABLET PO SCH (21:26)
[2016-10-27] MEDS: SIMVASTATIN 20 MG TAB PO SCH (21:27)
[2016-10-28 04:46] VITALS: BP 144/88
[2016-10-28] MEDS: SLF 3 ML SYR IV SCH ×3 (05:20→21:57)
[2016-10-28] MEDS: METOPROLOL TART 50 MG TAB PO SCH ×3 (05:20→17:53)
[2016-10-28 05:55] LABS: BASO % 0.6 % (0.0-1.0); EOS # 0.2 K/mm3 (0.0-0.50); EOS % 2.3 % (0.0-3.0); LARGE UNSTAINED CELL # 0.2 K/mm3 (0.0-0.4); LARGE UNSTAINED CELL % 2.2 % (0.0-4.0); LYMPH # 2.1 K/mm3 (1.5-4.5); LYMPH % 29.7 % (24.0-44.0); MEAN CORPUSCULAR HGB CONC 33.9 g/dl (32.0-36.5); MEAN CORPUSCULAR VOLUME 94.3 fl (80.0-96.0); MONO # 0.7 K/mm3 (0.0-0.8); MONO % 9.2 % (0.0-5.0); PLATELET COUNT, AUTOMATED 173 k/mm3 (150-450); RED CELL DISTRIBUTION WIDTH 13.7 % (11.5-14.5); WHITE BLOOD COUNT 7.1 K/mm3 (4.0-10.0)
[2016-10-28 06:18] LABS: ALBUMIN 3.2 GM/DL (3.2-5.2); ALBUMIN/GLOBULIN RATIO 0.91 (1.00-1.93); CREATININE FOR GFR 1.01 MG/DL (0.55-1.02); GLOMERULAR FILTRATION RATE 56.1 (>32); POTASSIUM SERUM 4.2 MEQ/L (3.5-5.1); TOTAL PROTEIN 6.7 GM/DL (6.4-8.2)
[2016-10-28 06:34] LABS: THYROXINE (T4) 9.8 UG/DL (4.5-12.0)
--- NOTE | 2016-10-28 07:12 | CR ---
DATE OF CONSULTATION: 10/27/2016 CARDIOLOGY CONSULTATION: REFERRING PHYSICIAN: Dr. Briseno INDICATION: Atrial fibrillation of new onset with somewhat rapid ventricular response and congestive heart failure. 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 Kimbrough for multiple medical problems including obesity, hypertension, and dependent edema. At this point, on a day-by-day basis, she his customarily limited by hip and knee arthralgia walking no farther than approximately 100-200 feet at her own pace. However, for at least the past several weeks has had a problem with dry cough, increasing effort dyspnea, orthopnea, nocturnal dyspnea, as well as worsening lower leg swelling. In the Urgent Care Clinic, she was evaluated because of her increasing shortness of breath yesterday and was found to have a rapid pulse with EKG confirming atrial fibrillation with rapid ventricular response. She was referred to [facility] emergency room for further care. Upon her presentation, initial vital signs showed a heart rate of 153 beats per minute, blood pressure 109/66 with respiratory rate 22, oxygen saturation was 98% on room air. Portable upright chest x-ray was reported as showing cardiomegaly, pulmonary venous congestion and pulmonary interstitial edema. EKG again confirmed underlying atrial fibrillation with a rapid ventricular response averaging 146 beats per minute. Diffuse nonspecific ST/T-wave abnormalities. Dr. Tae Sarmiento, ER physician contacted me for advice regarding control of her ventricular response, which did not change significantly with low dose of metoprolol by mouth and two doses IV. At the same time, she was also given furosemide 80 mg IV. I recommended additional metoprolol IV along with digoxin 0.25 mg IV. She was admitted to a telemetry unit and given additional IV Lasix with significant negative fluid balance measuring close to 4.5 liters at this time. Her respiratory distress was considerably improved, but heart rate remains somewhat suboptimal uncontrolled. Cardiology consultation was placed. KNOWN PAST CARDIAC DISEASE/EVENTS/TESTS: Reviewing her medical record here at [facility]: 08/24/2001 had a regular treadmill stress study performed because of an episode of chest pain. She was able to exercise for 6 minutes, got 99% of her predicted maximal heart rate with normal blood pressure response, no ectopic activity and no chest pain. EKGs did not show ST/T wave changes. Her chest pain was attributed to a respiratory infection. 06/11/2004, echocardiogram was performed because of a systemic embolic event to her right index finger - this was reported to show mild left ventricle hypertrophy with normal wall motion, left ventricular ejection fraction (LVEF) 55-60%, mildly dilated left atrium and at least moderate pulmonary hypertension (RVSP 47 mmHg). There was also mild mitral annular calcification with mild insufficiency. There was also mild aortic valvular sclerosis without functional abnormality. 07/08/2006, PA and left lateral chest x-ray taken at the time of hip surgery reportedly showed at least mild cardiomegaly but no congestive heart failure (CHF). Her thoracic aorta was mildly tortuous. Last available EKG, 10/01/2014, showed sinus bradycardia 56 beats per minute. There was obvious left atrial conduction disturbance. [place] was slightly leftward with slow precordial R-wave progression and persistent S waves in V5 and V6 in keeping with body habitus versus pulmonary disease. 11/17/2010 echocardiogram showing borderline left ventricular hypertrophy with hyperkinetic wall motion, LVEF 70%, at least borderline left atrial enlargement with impairment of LV diastolic relaxation but normal estimated mean left atrial pressure at that time. Normal right heart chamber sizes but at least mild pulmonary hypertension with RVSP 35 mmHg. Normal IVC size. Subtle degenerative changes of her valvular structures but no significant functional abnormality. No pericardial effusion. CARDINAL CARDIAC SYMPTOMS: As mentioned, remote episode of chest pain with low-risk treadmill study to 2000. Has had a history of gastroesophageal reflux disease for at least the past 10 years with intermittent heartburn controlled with proton pump inhibitor therapy. Denies effort related chest, jaw, or arm discomfort. Has had a longstanding weight problem (weighed 160 pounds at age 19; max weight 230 pounds 2 years ago; stable the past year). Has never been a smoker but does report chronic sinus problems with posterior nasal drip and dry cough usually, uses Flonase inhaler. Her orthopedic problems have been her primary effort limitation until the past several weeks when she has developed increasing shortness of breath. Usually has no problems with orthopnea but the past week has noticed orthopnea and nocturnal dyspnea. No history of hemoptysis. Remote history of pneumonia but not hospitalized. History of snoring but no documented apnea or obstructive sleep apnea. Unaware of prior rheumatic fever. Mitral regurgitation documented 2003 as mentioned above. Treated hypertension since her 50s with usual blood pressure averaging 130/80s. Patient is unaware of the documented cardiomegaly/left ventricle hypertrophy and pulmonary hypertension from her echocardiogram 2003. Despite her atrial fibrillation, she has never had an awareness of her heart action. Claims not to have been known to have any rhythm disturbance. No family history of rhythm disturbances, premature sudden cardiac or congenital deafness. In light of her gastrointestinal (GI) problems, tends to minimize or avoid caffeinated beverages. Drinks very little alcohol. No known thyroid dysfunction. Does not use pkwz-ves-clnumpt decongestants, energizers or diet aids. No history of dizziness, falling loss of consciousness. Remote history of right index embolic phenomenon 2003, but no lateralizing neurological deficit, flank pain, hematuria or blue toe syndrome. History of hip and knee arthralgia but no effort related calf pain. Has had lower leg swelling for more than 20 years attributed to her weight and venous insufficiency. No documented venous thrombosis. CORONARY RISK FACTORS: Advanced age. Postmenopausal status. Obesity. Hypercholesterolemia, on Zocor and chronic hypertension. Lifelong nonsmoker with no history of diabetes mellitus, family history of premature coronary heart disease or carotid vascular disease. OTHER PAST MEDICAL HISTORY: Tonsillectomy in childhood. Remote appendectomy. Hemorrhoidectomy and 1991. 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 Left bunionectomy 10/28/1991. Bilateral carpal tunnel releases 2003. Left second hammertoe repair and toenail removal 2004. Right total hip replacement July 2006. Chronic hypertension and obesity. Five prior pregnancies with four live births. History of urinary stress incontinence with buttock stimulator implanted 2 years ago (Dr. Toscano). REVIEW OF SYSTEMS: Denies any recent fever, chills or weight loss. No night sweats. Has worn glasses most of her life. No hearing problems. Longstanding gastroesophageal reflux disease as mentioned with prior upper and lower endoscopy. History of osteopenia. Degenerative joint disease. HOME MEDICATIONS: On admission, her medications at home consisted of: - metoprolol succinate 50 mg daily - valsartan hydrochlorothiazide 160/12.5 mg daily - amlodipine 5 mg daily - Lasix 40 mg daily (often would not take this regularly) - Plavix 75 mg daily - simvastatin 20 mg daily - Protonix 40 mg daily - multivitamin one tablet daily - calcium with vitamin D one tablet daily - glucosamine - meloxicam 15 mg daily - gabapentin 600 mg twice a day - vitamin C 1 gram twice a day - [place]-3 four tablets daily - Tylenol arthritic strength 650 mg two tablets twice a day - Ocuvite one tablet twice a day - vitamin D3 1000 international units daily - melatonin 10 mg nightly ALLERGIES: PENICILLIN, ASPIRIN, IBUPROFEN, and PROPOXYPHENE are all listed having hives with exposure to these agents. PHYSICAL EXAMINATION: Constitutional: Pleasant, somewhat short, stocky, obese, elderly lady. Very bright and currently comfortable lying with the head of bed elevated 30 degrees. No pallor or distress. Vital signs: Heart rate 100-120 beats per minute (BPM) and irregularly irregular. Blood pressure 122/60 supine, 130/64 (both arms) sitting with legs dependent. Respiratory rate 18 per minute with oxygen saturation 96% on room air. Afebrile. Weight 203 pounds. Height 61 inches. Body mass index (BMI) 38.4. Eyes: No pallor or icterus. No xanthelasma. ENT/Mouth: Has her own teeth. Normal oral moisture. No central cyanosis. Neck: Trachea midline. Thyroid not enlarged. Jugular veins were at least 6-7 cm above the sternal angle. Respiratory: Increased anteroposterior chest diameter with fairly good chest expansion. Good air entry over both lung jade with no current inspiratory crepitations. Very slight prolongation of expiration with end expiratory wheeze. Cardiovascular: Apical impulse lateral to the midclavicular line sixth intercostal space. S1, S2 were variable. The pulmonary component of S2 was accentuated audible over the right base as well as the lower left sternal border. No audible gallop at this time. Has a soft systolic ejection murmur with variable intensity related to her arrhythmia over the right base and left sternal border. Despite echocardiographic evidence of mitral insufficiency, there was no apparent apical systolic murmur. No diastolic murmur or rub. Normal carotid upstrokes but variable volume related to her arrhythmia. No bruits. Upper extremity and femoral pulses were symmetrical and normal. Pedal pulses could not be palpated because of pitting and nonpitting swelling. No obvious varicose veins. Pitting edema of at least 1 mm one-half of both lower legs but not over her sacrum. Abdominal aorta was not palpable because of obesity. No abdominal bruits. Gastrointestinal: Soft, obese, nontender abdomen with no apparent hepatosplenomegaly. Liver span query 8 cm in right midclavicular line. Rectal examination not indicated, but stool will be collected for occult blood. Skin: No pallor or icterus. Some degenerative changes of the skin both lower legs related to chronic edema but no other rashes, ecchymotic lesions. Musculoskeletal: No obvious joint deformities. Normal spine curvature. Slight proximal muscle weakness but normal tone. Neurologic/Psychiatric: Normal symmetrical eye, facial, and extremity movements. No abnormal movements. Bright, alert and oriented and gave a lucid history. No peripheral cyanosis, splinter hemorrhages or clubbing. INVESTIGATIONS: Portable upright chest x-ray reviewed independently from her admission yesterday shows obvious cardiomegaly even allowing for this technique with pulmonary venous congestion and diffuse interstitial pulmonary edema. No obvious pleural effusion. Bony structures appeared to be normal. Prominent pulmonary trunk. EKG: Her admission tracing 10/26/2016 at 9:58 a.m. showed underlying atrial fibrillation with rapid ventricular response averaging 146 beats per minute. There was low QRS voltage with poor precordial R-wave progression and persistent S waves in V5 and V6 in keeping with her body habitus versus pulmonary disease. Had variable Q-waves in the inferior lead/aVF likely related to her body habitus rather than prior infarction as these likely varied with respiration. She had diffuse subtle ST/T wave abnormalities. LABORATORY VALUES: Complete blood counts yesterday and today had been normal with hemoglobin 15.2, normal white blood cell counts and platelet counts. Admission chemistry showed electrolyte balance with potassium 3.8, BUN was 20, creatinine 1.0, fasting random glucose 106. Serum magnesium was 1.9. Troponin I level was negative. BNP level was elevated at 944. Ultra sensitive TSH was mildly increased 6.3 with normal free T4. Serial Troponin I levels have remained negative. With her impressive diuresis, her potassium has dropped to 3.3 and magnesium to 1.6 today. Supplement has been ordered to correct this. Liver function studies were normal, although alkaline phosphatase is slightly elevated. Serum albumin was 3.5. IMPRESSION: 1. Paroxysmal atrial fibrillation: From her history, unfortunately, we are uncertain of precisely how long she has had this arrhythmia, but I suspect it is on the order of weeks. Likely on the basis of her obesity, chronic hypertension with possibly an element of mitral valve insufficiency contributing to left atrial enlargement. No clear-cut trigger. A followup echocardiogram has been requested, but as her left atrium was reported to be at least mildly enlarged in 2003 I suspect it is at least moderately enlarged at this point. Case could be made for simply continuing with plan for heart rate control with oral anticoagulation. She is receiving Eliquis 5 mg twice a day without adverse effect. Would be inclined to keep her off Plavix with her known GI problems. In order to improve heart rate control with her normal renal function and body mass, I have increased her digoxin to 0.25 mg daily. I have also pushed potassium and magnesium replacement therapy. Her beta-deepa has been switched to metoprolol 50 mg by mouth now and every 6 hours, hold for heart rate less than 80 beats per minute. 2. Heart failure (unspecified/acute): Though she has had cardiomegaly dating back some 12 years likely on the basis of her obesity and hypertension, it would appear she has been primarily limited by orthopedic problems and had no manifest at congestion until developing her rapid ventricular response, atrial fibrillation recently. Has been treated with Lasix for many years because of lower leg swelling. Admits to noncompliance with this drug. Currently on a modest salt and fluid intake restriction. Lasix therapy is temporarily on hold in light of her impressive diuresis to date and present electrolyte disturbance as mentioned above. We have discussed the importance of complying with her Lasix therapy as an outpatient. We have also ordered an echocardiogram/Doppler study to reevaluate left ventricular size and function. In addition to her loop diuretic, we have added spirolactone 25 mg daily. In light of the need for beta-deepa to control her ventricular response atrial fibrillation, I am not sure she will tolerate FLOR inhibition/angiotensin receptor deepa therapy as well. We have requested the cardiac rehabilitation program be consulted for CHF education and gradual ambulation. 3. Abnormal electrocardiogram: Despite her impressively rapid ventricular response for query days or perhaps weeks, she has been free of symptomatic myocardial ischemia. Repolarization abnormalities have been subtle. Serial Troponin I levels here have been negative. This is quite the stress test for this elderly lady. Remains on protective beta-deepa and statin therapy with Eliquis oral anticoagulation. 4. Hypertensive heart disease (benign with heart failure): Has had radiographic and echocardiographic evidence of left ventricle hypertrophy/cardiomegaly left atrial enlargement dating back some 12 years. Current blood pressure would be considered adequately control as mentioned above. Electrolytes imbalance triggered by impressive diuresis with diuretic therapy here. Loop diuretic on hold, as mentioned, receiving replacement potassium and magnesium. Spirolactone has been included to help minimize the negative metabolic affects of loop diuretic therapy alone. Beta blockade will be used to replace amlodipine and valsartan. 5. Cor pulmonale/right heart failure: Previous echocardiographic studies have shown pulmonary hypertension that appears to be somewhat out of keeping with the degree of left heart disease. Undoubtedly, her chronic lower leg swelling is at least in part related to peripheral venous insufficiency with her obesity. She still has elevated neck veins and systemic edema. With her body mass index of 38 and history of snoring as well as her pulmonary hypertension and right heart failure, we have requested at least a screening nocturnal oximetry be performed prior to her discharge to help us rule out sleep apnea. Is receiving oral anticoagulant therapy to prevent future risk of deep venous thrombosis and pulmonary embolism. 6. Mitral valve disorder (nonrheumatic)/mitral insufficiency: Has had degenerative changes documented on her mitral and aortic valvular apparatus dating back to some 12 years with no more than mild mitral insufficiency that was read as being within normal limits by my associate on repeat study 2010. Fortunately has no symptom or sign of endocarditis. Repeat echocardiogram will allow us an opportunity to reevaluate valvular function. I will plan on following her closely with you and appreciate the opportunity to speak her care. Best regards.
[2016-10-28 07:25] LABS: DIGOXIN LEVEL 3.4 NG/ML (0.5-2.0)
[2016-10-28 08:00] VITALS: BP 104/58
--- NOTE | 2016-10-28 08:00 | REP ---
Clinical: Follow up CHF . Comparison: 10/26/2016 . Technique: PA and lateral. Findings: The mediastinum and cardiac silhouette are normal. The lung jade are clear and without acute consolidation, effusion, or pneumothorax. The skeletal structures are intact and normal. Impression: 1. No acute cardiopulmonary process. Signed by Law Wade MD 10/28/2016 07:52 A
[2016-10-28] MEDS ORDERED: DIGOXIN 0.25 MG TAB PO SCH (09:00)
[2016-10-28] MEDS: ASCORBIC ACID 500 MG TAB PO SCH ×2 (09:03→21:57)
[2016-10-28] MEDS: GABAPENTIN 300 MG CAP PO SCH ×2 (09:03→21:56)
[2016-10-28] MEDS: PANTOPRAZOLE 40MG TAB (PROTONIX) PO SCH (09:03)
[2016-10-28] MEDS: MAGNESIUM OXIDE 400 MG TAB (MAG-OX) PO SCH (09:03)
[2016-10-28] MEDS: OCUVITE 1 TAB PO SCH ×2 (09:03→21:57)
[2016-10-28] MEDS: OMEGA-3 1050MG CAPSULE PO SCH (09:04)
[2016-10-28] MEDS: SPIRONOLACTONE 25 MG TAB PO SCH (09:04)
[2016-10-28] MEDS: APIXABAN 5 MG TAB (ELIQUIS) PO SCH ×2 (09:04→21:57)
[2016-10-28] MEDS: METAMUCIL (PSYLLIUM) PACKET PO SCH (09:04)
[2016-10-28 12:00] VITALS: BP 144/80
--- NOTE | 2016-10-28 13:27 | IPN ---
DATE: 10/28/2016 81-year-old female seen at bedside. No overnight issues recorded. She did have her 2D echo performed yesterday. We did load her with some digoxin. Appreciate Dr. Hughes's input. She denies chest pain, shortness of breath, palpitations, nausea or vomiting. Tolerating her breakfast this morning. OBJECTIVE: Temperature is 96.8, pulse 98 and irregular, respiratory rate 18, blood pressure (BP) 104/58, SpO2 is 95% on room air. General: The patient appears to be in no acute distress, alert, oriented, pleasant talk to. HEENT: Unremarkable. Lungs: Clear to auscultation. Heart: Irregularly irregular. Abdomen is soft, obese, nontender with positive bowel sounds. No masses or rebound. Extremities: No edema. No calf tenderness. LABORATORY DATA: White count is 7.1, hemoglobin 15.7, and platelets are 173,000. Sodium 143, potassium 4.2, chloride 105, bicarbonate 29, anion gap 9, BUN was 24, creatinine 1.01, glucose is 93, calcium is 9, magnesium 2.0, AST 18, ALT 34, alkaline phosphatase 169, albumin 3.2. Triglycerides 116, cholesterol 123, LDL is 45.8, HDL is 54. Free T4 index 3.7. Thyroxine is 9.8. Repeat TSH is 3.910. Do question the reliability of the TSH since her free T4 appears to be normal and will perhaps want to repeat her thyroid in the next few weeks to make sure this is not caused of her atrial fibrillation. 2D echo is pending at this time. ASSESSMENT AND PLAN: 1. Paroxysmal atrial fibrillation. Appreciate Dr. Bush's input. Echocardiogram is pending at this time. She is anticoagulated on Eliquis. We have discontinued the Plavix. We did hold the digoxin this morning since her digoxin level was elevated. Defer to Dr. Hughes. Beta-deepa has been switched to metoprolol 50 mg every 6 hours with hold parameters. 2. Congestive heart failure, unspecified and acute. Again, 2D echocardiogram echo is pending at this time. Lasix is currently on hold due to lower blood pressure. However, we did add on spironolactone and the plan may be to start an angiotensin -converting enzyme (FLOR) inhibitor some time in the near future. 3. Hypertension. Amlodipine and hydrochlorothiazide are on hold. Again, appreciate Dr. Hughes's assistance. 4. Hyperlipidemia. Continue simvastatin. 5. History of arthritis and chronic back pain. Continue on gabapentin. 6. Hypokalemia/hypomagnesemia, resolved. 7. Elevated thyroid-stimulating hormone (TSH) in the setting of normal T4. Will continue with to follow. I am not convinced that this is hypothyroidism. At any rate, hypothyroidism would not be caused of atrial fibrillation. She could have repeated studies in the next few weeks. 8. Deep vein thrombosis (DVT) prophylaxis. Plavix has been discontinued and the patient currently on Eliquis. DISPOSITION: Anticipate home discharge in the next 24-48 hours.
[2016-10-28 16:00] VITALS: BP 120/68
--- NOTE | 2016-10-28 16:00 | ECHO ---
DATE OF PROCEDURE: 10/28/2016 AGE: 81 GENDER: Female HEIGHT: 61 inches WEIGHT: 202 pounds BODY SURFACE AREA: 1.9 sq m PATIENT LOCATION: Inpatient, PCU, room 3230 REFERRING PHYSICIAN: Dr. Hadley Hughes INDICATION: Heart failure. 2D MEASUREMENTS: RV: 4.0 cm LV: 4.4 cm Septum: 1.3 cm Posterior wall: 1.3 cm Aortic root: 3.2 cm LA: 4.3 cm LVEF: 65% DOPPLER MEASUREMENTS: AV: 1.3 m/s LVOT: 0.81 m/s LVOT diameter: 1.8 cm MV-E: 68 Early mitral deceleration time: 239 ms E prime: 7.3, E/E prime ratio: 9.3 PV: 0.8 m/s Pulmonary artery acceleration time: 74 ms PASP: 46 mmHg IVC: 2.0 cm Underlying atrial fibrillation with controlled ventricular response averaging 88 BPM. No intraventricular conduction disturbance. At least mildly dilated left atrium, but normal left ventricular size. Right ventricle was upper limits of normal in size with at least mildly dilated right atrium. LV wall thickness was mildly increased symmetrically. On real time imaging from the parasternal and apical projections wall motion was symmetrical and normal. Slightly thickened mitral annulus, but normal leaflet thickness and excursion with no posterior systolic buckling. Three equal sized aortic cusps with marginally thickened cusp edges but adequate cusp separation. Normal aortic root size. No apparent intracardiac mass or pericardial effusion. Color flow Doppler study taken from the parasternal and apical projections showed trace aortic, mild mitral and mild to moderate tricuspid insufficiency. Guided continuous wave Doppler of her aortic valve showed a normal peak systolic velocity against LV outflow tract obstruction. Pulsed and continuous wave Doppler of her LV inflow tract taken from the apical four chamber projection showed normal diastolic filling velocities against mitral stenosis. There was only early diastolic/passive filling as we would expect with atrial fibrillation. Her early mitral deceleration time was slightly prolonged. Degree of LV diastolic dysfunction was confirmed using tissue Doppler of her mitral annulus, but current estimated mean left atrial pressure was upper limits of normal. Pulsed and continuous wave Doppler of her pulmonary trunk showed a normal peak systolic velocity against RV outflow tract obstruction. Her pulmonary artery acceleration time was abbreviated consistent with at least moderate pulmonary hypertension. We attempted to further estimate her right ventricular systolic pressure using guided continuous wave Doppler, but could not get a clear spectral envelope. Her inferior vena cava was mildly dilated with slightly reduced respiratory collapse suggestive of a mildly elevated central venous pressure. CONCLUSIONS: Mild concentric left ventricular hypertrophy with preserved systolic function. Mildly dilated left atrium with Doppler evidence of an impairment of LV diastolic function, but currently normal estimated mean left atrial pressure. Right ventricular chamber upper limits of normal in size with Doppler sign of moderate pulmonary hypertension. Mildly dilated right atrium and inferior vena cava with slightly reduced respiratory collapse suggestive of an elevated central venous pressure. Subtle degenerative changes of the mitral and aortic valvular apparatus with mild mitral insufficiency and trace aortic insufficiency.
[2016-10-28] MEDS ORDERED: ALDA25TA2 PO (16:07)
[2016-10-28] MEDS ORDERED: MAG400TA PO (16:07)
[2016-10-28] MEDS ORDERED: ELIQ5TAB PO (16:07)
[2016-10-28] MEDS ORDERED: LOPR1TAB6 PO (16:07)
[2016-10-28] MEDS ORDERED: DIGO0.127 PO (16:08)
--- NOTE | 2016-10-28 16:41 | ECGEPIP ---
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
--- NOTE | 2016-10-28 16:49 | REP ---
LEFT ARM VENOUS DOPPLER, 10/28/2016: INDICATION: IV infiltrated two days ago, exclude DVT in the left upper extremity. FINDINGS: Evaluation of the left jugular, subclavian, axillary, basilic, cephalic veins using color Doppler, compression and augmentation techniques demonstrate no evidence of deep venous thrombosis. Area of erythema in the antecubital fossa region and subcutaneous tissues corresponds to thrombosed superficial venous varicosities. IMPRESSION: 1. Negative examination with no evidence of deep venous thrombosis noted in the left upper extremity. 2. Area of erythema and hard subcutaneous tissue corresponds to clotted superficial brittney varicosities. MTDD
--- NOTE | 2016-10-28 17:28 | EDDOCDS ---
Physician Documentation [facility] Name: Chantal Bush Age: 81 yrs Sex: Female : 1935 Arrival Date: 10/26/2016 Time: 09:43 Bed 10 Private MD: Juan Kimbrough Disposition: 10/26 12:54 Critical Care:. pc Disposition: 10/26/16 12:56 Hospitalization ordered by Deepika Loredo for Inpatient Admission. Preliminary diagnosis are Persistent atrial fibrillation, Acute systolic (congestive) heart failure. - Bed requested for PCU. - Status is Inpatient Admission. [id number] - Condition is Stable. - Problem is new. - Symptoms have improved. HPI: 10:58 This 81 yrs old Female presents to ER via Wheelchair with complaints of pc Irregular Pulse. 10:58 The history is obtained from the patient, the patient's family/friend. She has been pc SOBOE for 2+ weeks, developed a non-productive cough a week ago and was found to be in AFib at an urgent care today. She denies any chest pain, fevers or chills. She does not take her Lasix every day as prescribed but did this morning. She has a current heart rate of 145 in AFib and she has no sensation of the same. At their worst, the symptoms were moderate. In the emergency department, the symptoms are moderate. The patient has not experienced similar symptoms in the past. Historical: - Allergies: PENICILLINS; Aspirin (Hives); Scopolamine HBr; - Home Meds: 1. Lasix 40 mg Oral tab 1 tab once daily (Last dose: 10/26/2016 07:30) 2. Protonix 40 mg Oral TbEC 1 tab once daily (Last dose: 10/26/2016 07:30) 3. Plavix 75 mg Oral tab 1 tab once daily (Last dose: 10/26/2016 07:30) 4. multivitamin Oral cap 1 tablet daily (Last dose: 10/26/2016 07:30) 5. calcium and vitamin d 600 daily (Last dose: 10/25/2016 21:00) 6. simvastatin 20 mg Oral tab 1 tab once daily (Last dose: 10/25/2016 21:00) 7. Glucosamine oral oral daily (Last dose: 10/26/2016 07:30) 8. gabapentin 600 mg oral Tb24 twice a day (Last dose: 10/26/2016 07:30) 9. garlic 1,000 mg oral cap nightly (Last dose: 10/25/2016 21:00) 10. meloxicam 15 mg oral tab 1 tab once daily (Last dose: 10/26/2016 07:30) 11. metoprolol succinate 50 mg Tb24 1 tab nightly (Last dose: 10/25/2016 21:00) 12. Vitamin C 1,000 mg Oral tab twice a day (Last dose: 10/26/2016 07:30) 13. [place]-3 oral 4 tabs oral daily (Last dose: 10/26/2016 07:30) 14. Tylenol Arthritis Pain 650 mg oral TbER 2 tabs twice a day (Last dose: 10/26/2016 07:30) 15. Ocuvite oral 1 tab oral twice a day (Last dose: 10/26/2016 07:30) 16. Vitamin D3 1,000 unit oral chew daily (Last dose: 10/25/2016 21:00) 17. melatonin 10 mg Oral tab nightly (Last dose: 10/25/2016 21:00) 18. amlodipine 5 mg oral tab once daily (Last dose: 10/25/2016 21:00) 19. valsartan-hydrochlorothiazide 160-12.5 mg oral tab 1 tab once daily (Last dose: 10/26/2016 07:30) - PMHx: Hypercholesterolemia; Hypertension; cancer cervical; Arthritis; - PSHx: Hysterectomy; right hip rplacement; toe nail removal; Adenoidectomy; Tonsillectomy; Appendectomy; foot surgery; Bunion Surgery; Hemorrhoidectomy; - The history from nurses notes was reviewed: and I agree with what is documented. - Family history: Not pertinent. - Social history: Smoking status: Patient states was never smoker of tobacco. No barriers to communication noted, The patient speaks fluent Banglades[place], Speaks appropriately for age. - : The pt / caregiver states he / she is on anticoagulants: Plavix. Home medication list is obtained from the patient. - Hospitalizations: : No recent hospitalization is reported. - Exposure Risk Screening:: None identified. - Immunization history:: All immunizations up-to-date. - Social history:: the patient is a non-smoker, the patient drinks alcohol, socially. ROS: 10:58 All systems are negative except as listed. pc Exam: 10:58 General Appearance: no acute distress, alert. pc 10:58 EENT: normal eye inspection, ears, nose and throat normal, pharynx normal, mucous membranes moist 10:58 Neck: The exam reveals no acute abnormalities. ROM is normal and painless. No nuchal rigidity is noted.. 10:58 Respiratory: no respiratory distress, chest non-tender, Breath sounds: rales, in the left posterior lower lobe and right posterior lower lobe. 10:58 CVS: strong peripheral pulses, normal capillary refill, the patient is tachycardic, at 145 bpm, irregularly irregular there is a murmur, diastolic, grade 1 out of 6. 10:58 Abdomen: soft, non-tender, no organomegaly, normal bowel sounds. 10:58 Back: normal inspection. 10:58 Skin: skin color is normal, warm, dry. 10:58 Extremities: with pedal edema noted, is 3+ edema bilaterally 10:58 Neuro: oriented x 3, cranial nerves normal as tested, no motor deficits, no sensory deficits. 10:58 Psych: normal mood. Vital Signs: 09:45 BP 109 / 66; Pulse 153; Resp 22; Pulse Ox 98% on R/A; Weight 99.79 kg / 220 lbs; Height js13 5 ft. 1 in. (154.94 cm); Pain 0/10; 10:07 Temp 98.0(TE); dem1 10:22 BP 129 / 93 (auto/); js13 10:22 Pulse 144 MON; Resp 18; Pulse Ox 97% on 2 lpm NC; js13 10:37 BP 109 / 76 (auto/); js13 10:37 Pulse 144 MON; Resp 18; Pulse Ox 97% on 2 lpm NC; js13 11:15 BP 131 / 89 (auto/); js13 11:15 Pulse 162 MON; Resp 18; Pulse Ox 98% on 2 lpm NC; js13 11:20 BP 123 / 81 (auto/); js13 11:20 Pulse 136 MON; Resp 18; Pulse Ox 98% on 2 lpm NC; js13 11:27 BP 128 / 88 (auto/); js13 11:27 Pulse 132 MON; Resp 18; Pulse Ox 98% on 2 lpm NC; js13 11:29 BP 122 / 83 (auto/); js13 11:29 Pulse 128 MON; Resp 18; Pulse Ox 98% on 2 lpm NC; js13 11:46 BP 107 / 80 (auto/); js13 11:46 Pulse 124 MON; Resp 16; Pulse Ox 99% on 2 lpm NC; js13 12:17 BP 99 / 62 (auto/); js13 12:17 Pulse 118 MON; Resp 18; Pulse Ox 99% on 2 lpm NC; js13 12:31 BP 101 / 64 (auto/); js13 12:31 Pulse 118 MON; Resp 18; Pulse Ox 97% on 2 lpm NC; js13 14:34 BP 108 / 66; Pulse 124 MON; Resp 18; Temp 98.1(O); Pulse Ox 98% on 2 lpm NC; js13 09:45 Body Mass Index 41.57 (99.79 kg, 154.94 cm) js13 11:15 FIRST DOSE OF LOPRESSOR IVP js13 11:20 SECOND DOSE OF LOPRESSOR IVP js13 11:27 THIRD DOSE OF LOPRESSOR IVP 13 MDM: 09:52 ECG WITH READING ER PHYS+CARDIAG ordered. EDMS 10:40 Furosemide 80 mg IVP once ordered. pc 10:40 Supervisor Stave Finishing/Pulse Ox/q 15 min VS ordered. pc 10:40 IV Saline Lock ordered. pc 10:40 Oxygen at 4L/Min NC or Home dosage ordered. pc 10:40 Rhythm Strip to chart ordered. pc 10:41 B-Type Natiuretic Peptide Ordered. EDMS 10:41 Basic Metabolic Profile Ordered. EDMS 10:41 CBC with Diff Ordered. EDMS 10:41 Cardiac Injury Profile Ordered. EDMS 10:41 Troponin Ordered. EDMS 10:41 TSH with Free T4 Ordered. EDMS 10:41 Magnesium Level Ordered. EDMS 10:41 Chest, 1 View Ordered. EDMS 10:58 Differential Diagnosis: AFib - new onset with no clear time of onset; CHF; pc noncompliance. Plan: labs, EKG, CXR. Test interpretation: EKG. 11:08 B-Type Natiuretic Peptide Reviewed. pc 11:08 Basic Metabolic Profile Reviewed. pc 11:08 CBC with Diff Reviewed. pc 11:08 Troponin Reviewed. pc 11:08 Magnesium Level Reviewed. pc 11:09 Metoprolol (Tartrate) 25 mg PO once ordered. pc 11:09 Metoprolol 5 mg IVP every 5 minutes; Hold for SBP < 100 or HR < 60. x3 ordered. pc 11:11 TSH with Free T4 Reviewed. pc 11:12 Basic Metabolic Profile Reviewed. pc 11:12 Cardiac Injury Profile Reviewed. pc 11:12 TSH with Free T4 Reviewed. pc 11:12 Troponin Reviewed. pc 11:12 Magnesium Level Reviewed. pc 11:20 Financial registration complete. mm15 11:23 [facility] was [place] into [employer] and attached to record. mm15 12:39 Chest, 1 View Reviewed. pc 12:39 BED REQUEST+ADM ordered. EDMS 12:53 Digoxin 0.25 mg IVP once ordered. pc 12:54 Data reviewed: old medical records, vital signs, nurses notes, EKG(s), lab test pc results, all radiology studies and available results. Test interpretation: LAB - all labs as ordered have been reviewed, interpreted and considered in the overall management of the clinical presentation; X-RAY - interpreted by Radiologist and personally reviewed, 1 view chest congestive heart failure. The patient has been re-examined and re-evaluated. The patient's symptoms have mildly improved after treatment. Physician consultation: Dr. Hadley Hughes was contacted at 12:55, regarding consult. 12:54 Physician consultation: Dr. Deepika Loredo was contacted at 12:55, regarding admission. pc Disposition: The historical points, examination findings, and any diagnostic results supporting the provided diagnosis, were discussed with the patient or legal guardian. The need for further work-up and/or treatment in the hospital was explained. 13:22 Admission / Observation Status ordered. EDMS 13:22 NO ADDED SALT DIET ordered. EDMS 13:34 ECHOCARD,DOPPLER/COLOR FLOW ordered. EDMS 13:34 TROPONIN Ordered. EDMS 13:34 TROPONIN Ordered. EDMS 10/27 10:02 ECG/EKG was scanned into [employer] and attached to record. gb 16:25 TROPONIN Ordered. EDMS 16:25 CBC WITH DIFFERENTIAL Ordered. EDMS 16:25 COMPLETE COMPHRENSIVE METABOLI Ordered. EDMS 16:25 MAGNESIUM LEVEL Ordered. EDMS 16:25 LIPASE Ordered. EDMS 16:25 TROPONIN Ordered. EDMS EC/17 10:58 Rate is 146 beats/min. Rhythm is irregularly irregular, A fib. QRS [place] is Normal. QRS pc interval is normal. QT interval is normal. No Q waves. T waves are Normal. ST Segment is depressed in leads II, aVL, V4, V5, V6. Clinical impression: Nonspecific ST-T changes and Atrial Fibrillation with RVR. Administered Medications: 10:44 Drug: Furosemide 80 mg [furosemide 10 mg/mL injection solution (8 mL)] Route: IVP; 13 Site: left antecubital; 11:15 Drug: Metoprolol 25 mg [metoprolol tartrate 25 mg tablet (1 tabs)] Route: PO; 13 11:15 Drug: Metoprolol 5 mg [metoprolol 5 mg/5 mL intravenous solution (5 mL)] Route: IVP; 13 Site: left antecubital; 11:20 Drug: Metoprolol 5 mg [metoprolol 5 mg/5 mL intravenous solution (5 mL)] Route: IVP; 13 Site: left antecubital; 11:20 Follow up: Response: Cardiac Rhythm is unchanged [facility] 11:25 Drug: Metoprolol 5 mg [metoprolol 5 mg/5 mL intravenous solution (5 mL)] Route: IVP; [facility] Site: left antecubital; 11:25 Follow up: Response: Cardiac Rhythm is unchanged [facility] 11:30 Follow up: Response: Cardiac Rhythm is unchanged [facility] 13:06 Drug: Digoxin 0.25 mg [digoxin 250 mcg/mL injection solution (1 mL)] Route: IVP; Site: [facility] left antecubital; Critical Care Time: 12:54 Critical care time: Bedside Care: 25 minutes, Consultation: 20 minutes, Family pc Intervention: 15 minutes. Total time: 60 minutes Signatures: Dispatcher [employer] Tae Byrne MD MD pc Michelson, Staci RN RN srm Vicki Gordon, Braulio Reg Reynaldo Lovell RN RN [id number] Fabiana QuirozRN RN [id number] Uma Sherman 15 The chart was reviewed and I authenticate all verbal orders and agree with the evaluation and treatment provided.Corrections: (The following items were deleted from the chart) 10:17 10:12 Home Meds: diovan 160/12.5mg daily (Last Dose: Unknown); srm srm 10:17 10:12 Home Meds: Amlodipine Oral once daily (Last Dose: 10/25/2016 21:00); srm srm 11:10 10:58 She has been SOBOE for 2+ weeks, developed a non-productive cough a week ago and pc was found to be in AFib at an urgent care today. She denies any chest pain, fevers or chills. She does not take her Lasix every day as prescribed but did this morning. pc Attachments: 11:23 [facility] [place] mm15 10/27 10:02 ECG/EKG gb Chart Complete MTDD
--- NOTE | 2016-10-28 17:28 | EDDOCDS ---
Physician Documentation [facility] Name: Chantal Bush Age: 81 yrs Sex: Female : 1935 Arrival Date: 10/26/2016 Time: 09:43 Bed 10 Private MD: Juan Kimbrough Disposition: 10/26 12:54 Critical Care:. pc Disposition: 10/26/16 12:56 Hospitalization ordered by Deepika Loredo for Inpatient Admission. Preliminary diagnosis are Persistent atrial fibrillation, Acute systolic (congestive) heart failure. - Bed requested for PCU. - Status is Inpatient Admission. [id number] - Condition is Stable. - Problem is new. - Symptoms have improved. HPI: 10:58 This 81 yrs old Female presents to ER via Wheelchair with complaints of pc Irregular Pulse. 10:58 The history is obtained from the patient, the patient's family/friend. She has been pc SOBOE for 2+ weeks, developed a non-productive cough a week ago and was found to be in AFib at an urgent care today. She denies any chest pain, fevers or chills. She does not take her Lasix every day as prescribed but did this morning. She has a current heart rate of 145 in AFib and she has no sensation of the same. At their worst, the symptoms were moderate. In the emergency department, the symptoms are moderate. The patient has not experienced similar symptoms in the past. Historical: - Allergies: PENICILLINS; Aspirin (Hives); Scopolamine HBr; - Home Meds: 1. Lasix 40 mg Oral tab 1 tab once daily (Last dose: 10/26/2016 07:30) 2. Protonix 40 mg Oral TbEC 1 tab once daily (Last dose: 10/26/2016 07:30) 3. Plavix 75 mg Oral tab 1 tab once daily (Last dose: 10/26/2016 07:30) 4. multivitamin Oral cap 1 tablet daily (Last dose: 10/26/2016 07:30) 5. calcium and vitamin d 600 daily (Last dose: 10/25/2016 21:00) 6. simvastatin 20 mg Oral tab 1 tab once daily (Last dose: 10/25/2016 21:00) 7. Glucosamine oral oral daily (Last dose: 10/26/2016 07:30) 8. gabapentin 600 mg oral Tb24 twice a day (Last dose: 10/26/2016 07:30) 9. garlic 1,000 mg oral cap nightly (Last dose: 10/25/2016 21:00) 10. meloxicam 15 mg oral tab 1 tab once daily (Last dose: 10/26/2016 07:30) 11. metoprolol succinate 50 mg Tb24 1 tab nightly (Last dose: 10/25/2016 21:00) 12. Vitamin C 1,000 mg Oral tab twice a day (Last dose: 10/26/2016 07:30) 13. Surveyor-3 oral 4 tabs oral daily (Last dose: 10/26/2016 07:30) 14. Tylenol Arthritis Pain 650 mg oral TbER 2 tabs twice a day (Last dose: 10/26/2016 07:30) 15. Ocuvite oral 1 tab oral twice a day (Last dose: 10/26/2016 07:30) 16. Vitamin D3 1,000 unit oral chew daily (Last dose: 10/25/2016 21:00) 17. melatonin 10 mg Oral tab nightly (Last dose: 10/25/2016 21:00) 18. amlodipine 5 mg oral tab once daily (Last dose: 10/25/2016 21:00) 19. valsartan-hydrochlorothiazide 160-12.5 mg oral tab 1 tab once daily (Last dose: 10/26/2016 07:30) - PMHx: Hypercholesterolemia; Hypertension; cancer cervical; Arthritis; - PSHx: Hysterectomy; right hip rplacement; toe nail removal; Adenoidectomy; Tonsillectomy; Appendectomy; foot surgery; Bunion Surgery; Hemorrhoidectomy; - The history from nurses notes was reviewed: and I agree with what is documented. - Family history: Not pertinent. - Social history: Smoking status: Patient states was never smoker of tobacco. No barriers to communication noted, The patient speaks fluent Polish, Speaks appropriately for age. - : The pt / caregiver states he / she is on anticoagulants: Plavix. Home medication list is obtained from the patient. - Hospitalizations: : No recent hospitalization is reported. - Exposure Risk Screening:: None identified. - Immunization history:: All immunizations up-to-date. - Social history:: the patient is a non-smoker, the patient drinks alcohol, socially. ROS: 10:58 All systems are negative except as listed. pc Exam: 10:58 General Appearance: no acute distress, alert. pc 10:58 EENT: normal eye inspection, ears, nose and throat normal, pharynx normal, mucous membranes moist 10:58 Neck: The exam reveals no acute abnormalities. ROM is normal and painless. No nuchal rigidity is noted.. 10:58 Respiratory: no respiratory distress, chest non-tender, Breath sounds: rales, in the left posterior lower lobe and right posterior lower lobe. 10:58 CVS: strong peripheral pulses, normal capillary refill, the patient is tachycardic, at 145 bpm, irregularly irregular there is a murmur, diastolic, grade 1 out of 6. 10:58 Abdomen: soft, non-tender, no organomegaly, normal bowel sounds. 10:58 Back: normal inspection. 10:58 Skin: skin color is normal, warm, dry. 10:58 Extremities: with pedal edema noted, is 3+ edema bilaterally 10:58 Neuro: oriented x 3, cranial nerves normal as tested, no motor deficits, no sensory deficits. 10:58 Psych: normal mood. Vital Signs: 09:45 BP 109 / 66; Pulse 153; Resp 22; Pulse Ox 98% on R/A; Weight 99.79 kg / 220 lbs; Height js13 5 ft. 1 in. (154.94 cm); Pain 0/10; 10:07 Temp 98.0(TE); dem1 10:22 BP 129 / 93 (auto/); js13 10:22 Pulse 144 MON; Resp 18; Pulse Ox 97% on 2 lpm NC; js13 10:37 BP 109 / 76 (auto/); js13 10:37 Pulse 144 MON; Resp 18; Pulse Ox 97% on 2 lpm NC; js13 11:15 BP 131 / 89 (auto/); js13 11:15 Pulse 162 MON; Resp 18; Pulse Ox 98% on 2 lpm NC; js13 11:20 BP 123 / 81 (auto/); js13 11:20 Pulse 136 MON; Resp 18; Pulse Ox 98% on 2 lpm NC; js13 11:27 BP 128 / 88 (auto/); js13 11:27 Pulse 132 MON; Resp 18; Pulse Ox 98% on 2 lpm NC; js13 11:29 BP 122 / 83 (auto/); js13 11:29 Pulse 128 MON; Resp 18; Pulse Ox 98% on 2 lpm NC; js13 11:46 BP 107 / 80 (auto/); js13 11:46 Pulse 124 MON; Resp 16; Pulse Ox 99% on 2 lpm NC; js13 12:17 BP 99 / 62 (auto/); js13 12:17 Pulse 118 MON; Resp 18; Pulse Ox 99% on 2 lpm NC; js13 12:31 BP 101 / 64 (auto/); js13 12:31 Pulse 118 MON; Resp 18; Pulse Ox 97% on 2 lpm NC; js13 14:34 BP 108 / 66; Pulse 124 MON; Resp 18; Temp 98.1(O); Pulse Ox 98% on 2 lpm NC; js13 09:45 Body Mass Index 41.57 (99.79 kg, 154.94 cm) js13 11:15 FIRST DOSE OF LOPRESSOR IVP js13 11:20 SECOND DOSE OF LOPRESSOR IVP js13 11:27 THIRD DOSE OF LOPRESSOR IVP 13 MDM: 09:52 ECG WITH READING ER PHYS+CARDIAG ordered. EDMS 10:40 Furosemide 80 mg IVP once ordered. pc 10:40 Cutter Operator/Pulse Ox/q 15 min VS ordered. pc 10:40 IV Saline Lock ordered. pc 10:40 Oxygen at 4L/Min NC or Home dosage ordered. pc 10:40 Rhythm Strip to chart ordered. pc 10:41 B-Type Natiuretic Peptide Ordered. EDMS 10:41 Basic Metabolic Profile Ordered. EDMS 10:41 CBC with Diff Ordered. EDMS 10:41 Cardiac Injury Profile Ordered. EDMS 10:41 Troponin Ordered. EDMS 10:41 TSH with Free T4 Ordered. EDMS 10:41 Magnesium Level Ordered. EDMS 10:41 Chest, 1 View Ordered. EDMS 10:58 Differential Diagnosis: AFib - new onset with no clear time of onset; CHF; pc noncompliance. Plan: labs, EKG, CXR. Test interpretation: EKG. 11:08 B-Type Natiuretic Peptide Reviewed. pc 11:08 Basic Metabolic Profile Reviewed. pc 11:08 CBC with Diff Reviewed. pc 11:08 Troponin Reviewed. pc 11:08 Magnesium Level Reviewed. pc 11:09 Metoprolol (Tartrate) 25 mg PO once ordered. pc 11:09 Metoprolol 5 mg IVP every 5 minutes; Hold for SBP < 100 or HR < 60. x3 ordered. pc 11:11 TSH with Free T4 Reviewed. pc 11:12 Basic Metabolic Profile Reviewed. pc 11:12 Cardiac Injury Profile Reviewed. pc 11:12 TSH with Free T4 Reviewed. pc 11:12 Troponin Reviewed. pc 11:12 Magnesium Level Reviewed. pc 11:20 Financial registration complete. mm15 11:23 [facility] [place] Agreement was scanned into [employer] and attached to record. mm15 12:39 Chest, 1 View Reviewed. pc 12:39 BED REQUEST+ADM ordered. EDMS 12:53 Digoxin 0.25 mg IVP once ordered. pc 12:54 Data reviewed: old medical records, vital signs, nurses notes, EKG(s), lab test pc results, all radiology studies and available results. Test interpretation: LAB - all labs as ordered have been reviewed, interpreted and considered in the overall management of the clinical presentation; X-RAY - interpreted by Radiologist and personally reviewed, 1 view chest congestive heart failure. The patient has been re-examined and re-evaluated. The patient's symptoms have mildly improved after treatment. Physician consultation: Dr. Hadley Hughes was contacted at 12:55, regarding consult. 12:54 Physician consultation: Dr. Deepika Loredo was contacted at 12:55, regarding admission. pc Disposition: The historical points, examination findings, and any diagnostic results supporting the provided diagnosis, were discussed with the patient or legal guardian. The need for further work-up and/or treatment in the hospital was explained. 13:22 Admission / Observation Status ordered. EDMS 13:22 NO ADDED SALT DIET ordered. EDMS 13:34 ECHOCARD,DOPPLER/COLOR FLOW ordered. EDMS 13:34 TROPONIN Ordered. EDMS 13:34 TROPONIN Ordered. EDMS 10/27 10:02 ECG/EKG was scanned into [employer] and attached to record. gb 16:25 TROPONIN Ordered. EDMS 16:25 CBC WITH DIFFERENTIAL Ordered. EDMS 16:25 COMPLETE COMPHRENSIVE METABOLI Ordered. EDMS 16:25 MAGNESIUM LEVEL Ordered. EDMS 16:25 LIPASE Ordered. EDMS 16:25 TROPONIN Ordered. EDMS EC/17 10:58 Rate is 146 beats/min. Rhythm is irregularly irregular, A fib. QRS Elizabeth is Normal. QRS pc interval is normal. QT interval is normal. No Q waves. T waves are Normal. ST Segment is depressed in leads II, aVL, V4, V5, V6. Clinical impression: Nonspecific ST-T changes and Atrial Fibrillation with RVR. Administered Medications: 10:44 Drug: Furosemide 80 mg [furosemide 10 mg/mL injection solution (8 mL)] Route: IVP; 13 Site: left antecubital; 11:15 Drug: Metoprolol 25 mg [metoprolol tartrate 25 mg tablet (1 tabs)] Route: PO; 13 11:15 Drug: Metoprolol 5 mg [metoprolol 5 mg/5 mL intravenous solution (5 mL)] Route: IVP; 13 Site: left antecubital; 11:20 Drug: Metoprolol 5 mg [metoprolol 5 mg/5 mL intravenous solution (5 mL)] Route: IVP; 13 Site: left antecubital; 11:20 Follow up: Response: Cardiac Rhythm is unchanged [facility] 11:25 Drug: Metoprolol 5 mg [metoprolol 5 mg/5 mL intravenous solution (5 mL)] Route: IVP; [facility] Site: left antecubital; 11:25 Follow up: Response: Cardiac Rhythm is unchanged [facility] 11:30 Follow up: Response: Cardiac Rhythm is unchanged [facility] 13:06 Drug: Digoxin 0.25 mg [digoxin 250 mcg/mL injection solution (1 mL)] Route: IVP; Site: [facility] left antecubital; Critical Care Time: 12:54 Critical care time: Bedside Care: 25 minutes, Consultation: 20 minutes, Family pc Intervention: 15 minutes. Total time: 60 minutes Signatures: Dispatcher [employer] Tae Byrne MD MD pc Michelson, Staci RN RN srm Vicki Gordon, Braulio Reg Reynaldo Lovell RN RN [id number] Fabiana QuirozRN RN [id number] Uma Sherman 15 The chart was reviewed and I authenticate all verbal orders and agree with the evaluation and treatment provided.Corrections: (The following items were deleted from the chart) 10:17 10:12 Home Meds: diovan 160/12.5mg daily (Last Dose: Unknown); srm srm 10:17 10:12 Home Meds: Amlodipine Oral once daily (Last Dose: 10/25/2016 21:00); srm srm 11:10 10:58 She has been SOBOE for 2+ weeks, developed a non-productive cough a week ago and pc was found to be in AFib at an urgent care today. She denies any chest pain, fevers or chills. She does not take her Lasix every day as prescribed but did this morning. pc Attachments: 11:23 [facility] [place] Agreement mm15 10/27 10:02 ECG/EKG gb Chart Complete MTDD
--- NOTE | 2016-10-28 17:29 | EDDOCDS ---
Nurse's Notes [facility] Name: Chantal Bush Age: 81 yrs Sex: Female : 1935 Arrival Date: 10/26/2016 Time: 09:43 Bed 10 Private MD: Juan Kimbrough Diagnosis: Persistent atrial fibrillation;Acute systolic (congestive) heart failure Presentation: 10/26 09:51 Presenting complaint: Patient states: SOB and cough for past week. seen at urgent care [facility] today dx with new onset a fib. non productive cough. denies chest pain. Adult Sepsis Screening: The patient does not have new or worsening altered mentation. Patient's respiratory rate is less than 22. Systolic blood pressure is greater than 100. Patient has a qSOFA score of 0- Negative Sepsis Screen. Transition of care: Patient was received from [facility]. 09:51 Acuity: JACKIE Level 2 [facility] 09:51 Method Of Arrival: Wheelchair [facility] 10:01 Suicide/Homicide risk assessment- the patient denies having any suicidal and/or [facility] homicidal ideations and does not present with any other emotional, behavioral or mental health complaints. 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 Triage Assessment: 10:12 General: Appears in no apparent distress, Behavior is appropriate for age, cooperative. [facility] Pain: Denies pain. Historical: - Allergies: PENICILLINS; Aspirin (Hives); Scopolamine HBr; - Home Meds: 1. Lasix 40 mg Oral tab 1 tab once daily (Last dose: 10/26/2016 07:30) 2. Protonix 40 mg Oral TbEC 1 tab once daily (Last dose: 10/26/2016 07:30) 3. Plavix 75 mg Oral tab 1 tab once daily (Last dose: 10/26/2016 07:30) 4. multivitamin Oral cap 1 tablet daily (Last dose: 10/26/2016 07:30) 5. calcium and vitamin d 600 daily (Last dose: 10/25/2016 21:00) 6. simvastatin 20 mg Oral tab 1 tab once daily (Last dose: 10/25/2016 21:00) 7. Glucosamine oral oral daily (Last dose: 10/26/2016 07:30) 8. gabapentin 600 mg oral Tb24 twice a day (Last dose: 10/26/2016 07:30) 9. garlic 1,000 mg oral cap nightly (Last dose: 10/25/2016 21:00) 10. meloxicam 15 mg oral tab 1 tab once daily (Last dose: 10/26/2016 07:30) 11. metoprolol succinate 50 mg Tb24 1 tab nightly (Last dose: 10/25/2016 21:00) 12. Vitamin C 1,000 mg Oral tab twice a day (Last dose: 10/26/2016 07:30) 13. Emerson-3 oral 4 tabs oral daily (Last dose: 10/26/2016 07:30) 14. Tylenol Arthritis Pain 650 mg oral TbER 2 tabs twice a day (Last dose: 10/26/2016 07:30) 15. Ocuvite oral 1 tab oral twice a day (Last dose: 10/26/2016 07:30) 16. Vitamin D3 1,000 unit oral chew daily (Last dose: 10/25/2016 21:00) 17. melatonin 10 mg Oral tab nightly (Last dose: 10/25/2016 21:00) 18. amlodipine 5 mg oral tab once daily (Last dose: 10/25/2016 21:00) 19. valsartan-hydrochlorothiazide 160-12.5 mg oral tab 1 tab once daily (Last dose: 10/26/2016 07:30) - PMHx: Hypercholesterolemia; Hypertension; cancer cervical; Arthritis; - PSHx: Hysterectomy; right hip rplacement; toe nail removal; Adenoidectomy; Tonsillectomy; Appendectomy; foot surgery; Bunion Surgery; Hemorrhoidectomy; - The history from nurses notes was reviewed: and I agree with what is documented. - Family history: Not pertinent. - Social history: Smoking status: Patient states was never smoker of tobacco. No barriers to communication noted, The patient speaks fluent Ukrainian, Speaks appropriately for age. - : The pt / caregiver states he / she is on anticoagulants: Plavix. Home medication list is obtained from the patient. - Hospitalizations: : No recent hospitalization is reported. - Exposure Risk Screening:: None identified. - Immunization history:: All immunizations up-to-date. - Social history:: the patient is a non-smoker, the patient drinks alcohol, socially. Screenin:03 Screening information is obtained from the patient. Fall risk: No risks identified. js13 Assistance ADL's: requires no assistance with activities of daily living. Abuse/DV Screen: The patient / caregiver reports he/she is: not in a situation that causes fear, pain or injury. Nutritional screening: No deficits noted. Advance Directives: There is no active DNR order. home support is adequate. 10:13 Advance Directives: Currently, there is a health care proxy, larry hussein- daughter. [facility] There is an active DNR order but there is no copy available at this time. Assessment: 10:03 General: Appears in no apparent distress, Behavior is appropriate for age, cooperative. js13 Pain: Denies pain. Neurological: Level of Consciousness is awake, alert, obeys commands. Cardiovascular: Rhythm is atrial fibrillation with rapid ventricular response Chest pain is denied. Respiratory: Airway is patent Respiratory effort is even, unlabored, Respiratory pattern is regular, Breath sounds with rales bilaterally. in left lower lobe and right lower lobe Reports shortness of breath at rest on exertion. GI: Abdomen is obese, Bowel sounds Abd is soft and non tender. Derm: Skin is pink, warm & dry. 11:00 General: Appears in no apparent distress, comfortable, Behavior is appropriate for age, js13 cooperative. Pain: Denies pain. Neurological: Level of Consciousness is awake, alert, obeys commands. Cardiovascular: Rhythm is atrial fibrillation with rapid ventricular response Chest pain is denied. Respiratory: Airway is patent Respiratory effort is even, unlabored, Respiratory pattern is regular, Derm: Skin is pink, warm & dry. 12:12 Adult Sepsis Screening: The patient does not have new or worsening altered mentation. js13 Patient's respiratory rate is less than 22. Systolic blood pressure is greater than 100. Patient has a qSOFA score of 0- Negative Sepsis Screen. General: Appears in no apparent distress, comfortable, Behavior is appropriate for age, cooperative. Pain: Denies pain. Neurological: Level of Consciousness is awake, alert, obeys commands. Cardiovascular: Rhythm is atrial fibrillation with rapid ventricular response Chest pain is denied. Respiratory: Airway is patent Respiratory effort is even, unlabored, Respiratory pattern is regular, symmetrical. GI: Abdomen is obese. Derm: Skin is pink, warm & dry. 13:36 General: Appears in no apparent distress, comfortable, Behavior is appropriate for age, js13 cooperative. Pain: Denies pain. Neurological: Level of Consciousness is awake, alert, obeys commands. Cardiovascular: Rhythm is atrial fibrillation with rapid ventricular response Chest pain is denied. Respiratory: Airway is patent Respiratory effort is even, unlabored, Respiratory pattern is regular, symmetrical, Breath sounds with rales bilaterally. in left lower lobe and right lower lobe. Derm: Skin is pink, warm & dry. 14:34 Adult Sepsis Screening: The patient does not have new or worsening altered mentation. js13 Patient's respiratory rate is less than 22. Systolic blood pressure is greater than 100. Patient has a qSOFA score of 0- Negative Sepsis Screen. General: Appears in no apparent distress, comfortable, Behavior is appropriate for age, cooperative. Pain: Denies pain. Neurological: Level of Consciousness is awake, alert, obeys commands. Cardiovascular: Rhythm is atrial fibrillation with rapid ventricular response Chest pain is denied. Respiratory: Airway is patent Respiratory effort is even, unlabored, Respiratory pattern is regular, symmetrical, Breath sounds with rales bilaterally. in right lower lobe and left lower lobe. GI: Abdomen is obese. Derm: Skin is pink, warm & dry. Vital Signs: 09:45 BP 109 / 66; Pulse 153; Resp 22; Pulse Ox 98% on R/A; Weight 99.79 kg; Height 5 ft. 1 js13 in. (154.94 cm); Pain 0/10; 10:07 Temp 98.0(TE); dem1 10:22 BP 129 / 93 (auto/); js13 10:22 Pulse 144 MON; Resp 18; Pulse Ox 97% on 2 lpm NC; js13 10:37 BP 109 / 76 (auto/); js13 10:37 Pulse 144 MON; Resp 18; Pulse Ox 97% on 2 lpm NC; js13 11:15 BP 131 / 89 (auto/); js13 11:15 Pulse 162 MON; Resp 18; Pulse Ox 98% on 2 lpm NC; js13 11:20 BP 123 / 81 (auto/); js13 11:20 Pulse 136 MON; Resp 18; Pulse Ox 98% on 2 lpm NC; js13 11:27 BP 128 / 88 (auto/); js13 11:27 Pulse 132 MON; Resp 18; Pulse Ox 98% on 2 lpm NC; js13 11:29 BP 122 / 83 (auto/); js13 11:29 Pulse 128 MON; Resp 18; Pulse Ox 98% on 2 lpm NC; js13 11:46 BP 107 / 80 (auto/); js13 11:46 Pulse 124 MON; Resp 16; Pulse Ox 99% on 2 lpm NC; js13 12:17 BP 99 / 62 (auto/); js13 12:17 Pulse 118 MON; Resp 18; Pulse Ox 99% on 2 lpm NC; js13 12:31 BP 101 / 64 (auto/); js13 12:31 Pulse 118 MON; Resp 18; Pulse Ox 97% on 2 lpm NC; js13 14:34 BP 108 / 66; Pulse 124 MON; Resp 18; Temp 98.1(O); Pulse Ox 98% on 2 lpm NC; js13 09:45 Body Mass Index 41.57 (99.79 kg, 154.94 cm) js13 11:15 FIRST DOSE OF LOPRESSOR IVP js13 11:20 SECOND DOSE OF LOPRESSOR IVP js13 11:27 THIRD DOSE OF LOPRESSOR IVP js13 Vitals: 09:45 Log In Time: October 26, 2016 at 09:43. cmb ED Course: 09:45 Patient visited by Consuelo Phipps. cmb 09:45 Juan Kimbrough is Private Physician. cmb 09:45 Patient moved to Waiting cmb 09:47 RN notified that patient meets Red Flag criteria. cmb 09:50 Jennifer Mera,RN is Primary Nurse. mcp 09:50 Fabiana Quiroz,RN is Primary Nurse. mcp 09:50 Patient moved to 10 mcp 09:52 Patient visited by Gilda Gomez, JENNIFER. srm 09:52 Triage Initiated srm 09:56 Tae Sarmiento MD is Attending Physician. pc 09:57 Patient visited by Galo Roberts. dem1 09:57 EKG done. (by ED staff). Reviewed by Tae Sarmiento MD. dem1 09:59 Patient visited by Janel Ortiz PCA. ct3 09:59 Accompanied by Friend, Patient has correct armband on for positive identification. ct3 Placed in gown. Bed in low position. Call light in reach. Side rails up X2. user experience architect on. Pulse ox on. NIBP on. 10:03 The patient / caregiver is instructed regarding the plan of care and ED course. js13 10:03 Inserted saline lock: 18 gauge in left antecubital area and blood collected. The js13 patient tolerated the procedure well. No procedures done that require assistance. Labs drawn. (by ED staff). Sent per order to lab. Labs/Blood culture drawn. 10:08 Patient visited by Galo Roberts. dem1 10:39 Patient visited by Tae Sarmiento MD. pc 11:17 Patient visited by Galo Roberts. dem1 11:17 Assisted to bedside commode. dem1 11:23 [facility] Payment Agreement was scanned into [employer] and attached to record. mm15 11:41 Patient visited by Fabiana Quiroz RN. js13 11:45 Chest, 1 View Returned. EDMS 12:13 Patient visited by Fabiana Quiroz RN. js13 12:51 Patient visited by Janel Ortiz PCA. ct3 12:56 Deepika Loredo is Hospitalizing Provider. pc 14:05 Diet: Patient given regular meal. dem1 14:06 Patient visited by Galo Roberts. dem1 14:44 Primary Nurse role handed off by Jennifer Mera RN js13 16:08 Discontinued IV lock intact, bleeding controlled, pressure dressing applied. js13 16:09 Inserted saline lock: 20 gauge in right hand and blood collected. The patient tolerated js13 the procedure well. 10/27 10:02 ECG/EKG was scanned into [employer] and attached to record. gb 16:25 Patient name changed from [place]\S\[place]\S\[place]\S\ to [place]\S\[place]. EDMS Administered Medications: 10/26 10:44 Drug: Furosemide 80 mg [furosemide 10 mg/mL injection solution (8 mL)] Route: IVP; js13 Site: left antecubital; 11:15 Drug: Metoprolol 25 mg [metoprolol tartrate 25 mg tablet (1 tabs)] Route: PO; 11:15 Drug: Metoprolol 5 mg [metoprolol 5 mg/5 mL intravenous solution (5 mL)] Route: IVP; js13 Site: left antecubital; 11:20 Drug: Metoprolol 5 mg [metoprolol 5 mg/5 mL intravenous solution (5 mL)] Route: IVP; js13 Site: left antecubital; 11:20 Follow up: Response: Cardiac Rhythm is unchanged [facility] 11:25 Drug: Metoprolol 5 mg [metoprolol 5 mg/5 mL intravenous solution (5 mL)] Route: IVP; [facility] Site: left antecubital; 11:25 Follow up: Response: Cardiac Rhythm is unchanged 13 11:30 Follow up: Response: Cardiac Rhythm is unchanged [facility] 13:06 Drug: Digoxin 0.25 mg [digoxin 250 mcg/mL injection solution (1 mL)] Route: IVP; Site: [facility] left antecubital; Output: 12:11 Urine: 800.00ml (Voided); Total: 800.00ml. 14:00 Urine: 600.00ml (Voided); Total: 1400.00ml. [facility] Order Results: Lab Order: B-Type Natiuretic Peptide; SPEC'M 10/26/16 10:00 Test: BRAIN NATRIURETIC PEPTIDE; Value: 944; Range: <100; Abnormal: Above high normal; Units: PG/ML; Status: F Lab Order: Basic Metabolic Profile; SPEC' 10/26/16 10:00 Test: GLUCOSE, FASTING; Value: 106; Range: 83-110; Units: MG/DL; Status: F Test: BLOOD UREA NITROGEN; Value: 20; Range: 7-18; Abnormal: Above high normal; Units: MG/DL; Status: F Test: CREATININE FOR GFR; Value: 1.00; Range: 0.55-1.02; Units: MG/DL; Status: F Test: GLOMERULAR FILTRATION RATE; Value: 56.8; Range: >32; Status: F Test: SODIUM LEVEL; Value: 143; Range: 136-145; Units: MEQ/L; Status: F Test: POTASSIUM SERUM; Value: 3.8; Range: 3.5-5.1; Units: MEQ/L; Status: F Test: CHLORIDE LEVEL; Value: 105; Range: 98-107; Units: MEQ/L; Status: F Test: CARBON DIOXIDE LEVEL; Value: 27; Range: 21-32; Units: MEQ/L; Status: F Test: ANION GAP; Value: 11; Range: 8-16; Units: MEQ/L; Status: F Test: CALCIUM LEVEL; Value: 9.9; Range: 8.8-10.2; Units: MG/DL; Status: F Test Note: ; Units are mL/min/1.73 m2 Chronic Kidney Disease Staging per NKF: Stage I & II GFR >=60 Normal to Mildly Decreased Stage III GFR 30-59 Moderately Decreased Stage IV GFR 15-29 Severely Decreased Stage V GFR <15 Very Little GFR Left ESRD GFR <15 on [employer] Lab Order: CBC with Diff; SPEC'M 10/26/16 10:00 Test: WHITE BLOOD COUNT; Value: 5.9; Range: 4.0-10.0; Units: K/mm3; Status: F Test: RED BLOOD COUNT; Value: 4.77; Range: 4.00-5.40; Units: M/mm3; Status: F Test: HEMOGLOBIN; Value: 15.2; Range: 12.0-16.0; Units: g/dl; Status: F Test: HEMATOCRIT; Value: 46.7; Range: 36.0-47.0; Units: %; Status: F Test: MEAN CORPUSCULAR VOLUME; Value: 98.0; Range: 80.0-96.0; Abnormal: Above high normal; Units: fl; Status: F Test: MEAN CORPUSCULAR HEMOGLOBIN; Value: 32.0; Range: 27.0-33.0; Units: pg; Status: F Test: MEAN CORPUSCULAR HGB CONC; Value: 32.6; Range: 32.0-36.5; Units: g/dl; Status: F Test: RED CELL DISTRIBUTION WIDTH; Value: 14.9; Range: 11.5-14.5; Abnormal: Above high normal; Units: %; Status: F Test: PLATELET COUNT, AUTOMATED; Value: 181; Range: 150-450; Units: k/mm3; Status: F Test: NEUTROPHILS %; Value: 65.3; Range: 36.0-66.0; Units: %; Status: F Test: LYMPH %; Value: 22.9; Range: 24.0-44.0; Abnormal: Below low normal; Units: %; Status: F Test: MONO %; Value: 6.9; Range: 0.0-5.0; Abnormal: Above high normal; Units: %; Status: F Test: EOS %; Value: 1.9; Range: 0.0-3.0; Units: %; Status: F Test: BASO %; Value: 1.4; Range: 0.0-1.0; Abnormal: Above high normal; Units: %; Status: F Test: LARGE UNSTAINED CELL %; Value: 1.7; Range: 0.0-4.0; Units: %; Status: F Test: NEUTROPHILS #; Value: 3.9; Range: 1.8-7.7; Units: K/mm3; Status: F Test: LYMPH #; Value: 1.5; Range: 1.5-4.5; Units: K/mm3; Status: F Test: MONO #; Value: 0.4; Range: 0.0-0.8; Units: K/mm3; Status: F Test: EOS #; Value: 0.1; Range: 0.0-0.50; Units: K/mm3; Status: F Test: BASO #; Value: 0.1; Range: 0.0-0.2; Units: K/mm3; Status: F Test: LARGE UNSTAINED CELL #; Value: 0.1; Range: 0.0-0.4; Units: K/mm3; Status: F Lab Order: Cardiac Injury Profile; SPEC'M 10/26/16 10:00 Test: CPK CREATINE PHOSPHOKINASE; Value: 37; Range: 26-192; Units: U/L; Status: F Test: CK-MB VALUE MASS; Value: 2.9; Range: 0.0-3.6; Units: NG/ML; Status: F Test: MB/CK RELATIVE INDEX; Value: 7.83; Range: < OR =4; Abnormal: Above high normal; Status: F Test Note: ; DIAGNOSIS CRITERIA MMB ng/ml Relative Index (RI) NON-AMI < or = 5 N/A DAIGLE ZONE > 5 < or = 4 AMI > 5 > 4 Lab Order: Troponin; SPEC'M 10/26/16 10:00 Test: TROPONIN I; Value: < 0.02; Range: < 0.10; Units: NG/ML; Status: F Test Note: ; Troponin I Reference Interval for [employer] LOCI: 99th Percentile= 0.00-0.045 ng/ml Risk Stratification: <= 0.10 ng/ml Decreased Risk for Adverse Clinical Events. 0.10-1.50 ng/ml Increased Risk for Adverse Clinical Events. Evaluation of additional criterion and/or repeat testing in 2-6 hours is suggested to rule out myocardial damage. >= 1.50 ng/ml Indicative of Myocardial Injury. Lab Order: TSH with Free T4; [facility]' 10/26/16 10:00 Test: THYROID STIMULATING HORMONE; Value: 6.320; Range: 0.358-3.740; Abnormal: Above high normal; Units: uIU/ML; Status: F Test: FREE T4; Value: 1.20; Range: 0.76-1.46; Units: NG/DL; Status: F Lab Order: Magnesium Level; [facility]' 10/26/16 10:00 Test: MAGNESIUM LEVEL; Value: 1.9; Range: 1.8-2.4; Units: MG/DL; Status: F Lab Order: TROPONIN; [facility]' 10/26/16 16:08 Test: TROPONIN I; Value: < 0.02; Range: < 0.10; Units: NG/ML; Status: F Test Note: ; Troponin I Reference Interval for [employer] LOCI: 99th Percentile= 0.00-0.045 ng/ml Risk Stratification: <= 0.10 ng/ml Decreased Risk for Adverse Clinical Events. 0.10-1.50 ng/ml Increased Risk for Adverse Clinical Events. Evaluation of additional criterion and/or repeat testing in 2-6 hours is suggested to rule out myocardial damage. >= 1.50 ng/ml Indicative of Myocardial Injury. Lab Order: TROPONIN; [facility]' 10/26/16 22:53 Test: TROPONIN I; Value: < 0.02; Range: < 0.10; Units: NG/ML; Status: F Test Note: ; Troponin I Reference Interval for [employer] LOCI: 99th Percentile= 0.00-0.045 ng/ml Risk Stratification: <= 0.10 ng/ml Decreased Risk for Adverse Clinical Events. 0.10-1.50 ng/ml Increased Risk for Adverse Clinical Events. Evaluation of additional criterion and/or repeat testing in 2-6 hours is suggested to rule out myocardial damage. >= 1.50 ng/ml Indicative of Myocardial Injury. Lab Order: CBC WITH DIFFERENTIAL; [facility]' 10/27/16 05:51 Test: MEAN CORPUSCULAR VOLUME; Value: 97.0; Range: 80.0-96.0; Abnormal: Above high normal; Units: fl; Status: F Test: MEAN CORPUSCULAR HEMOGLOBIN; Value: 32.0; Range: 27.0-33.0; Units: pg; Status: F Test: MEAN CORPUSCULAR HGB CONC; Value: 33.0; Range: 32.0-36.5; Units: g/dl; Status: F Test: RED CELL DISTRIBUTION WIDTH; Value: 14.7; Range: 11.5-14.5; Abnormal: Above high normal; Units: %; Status: F Test: PLATELET COUNT, AUTOMATED; Value: 161; Range: 150-450; Units: k/mm3; Status: F Test: NEUTROPHILS %; Value: 58.1; Range: 36.0-66.0; Units: %; Status: F Test: LYMPH %; Value: 27.9; Range: 24.0-44.0; Units: %; Status: F Test: MONO %; Value: 8.9; Range: 0.0-5.0; Abnormal: Above high normal; Units: %; Status: F Test: EOS %; Value: 2.6; Range: 0.0-3.0; Units: %; Status: F Test: BASO %; Value: 1.1; Range: 0.0-1.0; Abnormal: Above high normal; Units: %; Status: F Test: LARGE UNSTAINED CELL %; Value: 1.4; Range: 0.0-4.0; Units: %; Status: F Test: NEUTROPHILS #; Value: 4.8; Range: 1.8-7.7; Units: K/mm3; Status: F Test: LYMPH #; Value: 2.4; Range: 1.5-4.5; Units: K/mm3; Status: F Test: MONO #; Value: 0.7; Range: 0.0-0.8; Units: K/mm3; Status: F Test: EOS #; Value: 0.2; Range: 0.0-0.50; Units: K/mm3; Status: F Test: BASO #; Value: 0.1; Range: 0.0-0.2; Units: K/mm3; Status: F Test: LARGE UNSTAINED CELL #; Value: 0.1; Range: 0.0-0.4; Units: K/mm3; Status: F Test: WHITE BLOOD COUNT; Value: 8.2; Range: 4.0-10.0; Units: K/mm3; Status: F Test: RED BLOOD COUNT; Value: 4.74; Range: 4.00-5.40; Units: M/mm3; Status: F Test: HEMOGLOBIN; Value: 15.2; Range: 12.0-16.0; Units: g/dl; Status: F Test: HEMATOCRIT; Value: 45.9; Range: 36.0-47.0; Units: %; Status: F Lab Order: COMPLETE COMPHRENSIVE METABOLI; SPEC'M 10/27/16 05:51 Test: GLUCOSE, FASTING; Value: 94; Range: 83-110; Units: MG/DL; Status: F Test: BLOOD UREA NITROGEN; Value: 23; Range: 7-18; Abnormal: Above high normal; Units: MG/DL; Status: F Test: CREATININE FOR GFR; Value: 0.99; Range: 0.55-1.02; Units: MG/DL; Status: F Test: GLOMERULAR FILTRATION RATE; Value: 57.5; Range: >32; Status: F Test: SODIUM LEVEL; Value: 144; Range: 136-145; Units: MEQ/L; Status: F Test: POTASSIUM SERUM; Value: 3.3; Range: 3.5-5.1; Abnormal: Below low normal; Units: MEQ/L; Status: F Test: CHLORIDE LEVEL; Value: 103; Range: 98-107; Units: MEQ/L; Status: F Test: CARBON DIOXIDE LEVEL; Value: 30; Range: 21-32; Units: MEQ/L; Status: F Test: ANION GAP; Value: 11; Range: 8-16; Units: MEQ/L; Status: F Test: CALCIUM LEVEL; Value: 9.4; Range: 8.8-10.2; Units: MG/DL; Status: F Test: AST/SGOT; Value: 23; Range: 15-37; Units: U/L; Status: F Test: ALT/SGPT; Value: 41; Range: 12-78; Units: U/L; Status: F Test: ALKALINE PHOSPHATASE; Value: 184; Range: 45-117; Abnormal: Above high normal; Units: U/L; Status: F Test: BILIRUBIN,TOTAL; Value: 1.0; Range: 0.2-1.0; Units: MG/DL; Status: F Test: TOTAL PROTEIN; Value: 6.9; Range: 6.4-8.2; Units: GM/DL; Status: F Test: ALBUMIN; Value: 3.5; Range: 3.2-5.2; Units: GM/DL; Status: F Test: ALBUMIN/GLOBULIN RATIO; Value: 1.03; Range: 1.00-1.93; Status: F Test Note: ; Units are mL/min/1.73 m2 Chronic Kidney Disease Staging per NKF: Stage I & II GFR >=60 Normal to Mildly Decreased Stage III GFR 30-59 Moderately Decreased Stage IV GFR 15-29 Severely Decreased Stage V GFR <15 Very Little GFR Left ESRD GFR <15 on [employer] Lab Order: MAGNESIUM LEVEL; SPEC'M 10/27/16 05:51 Test: MAGNESIUM LEVEL; Value: 1.6; Range: 1.8-2.4; Abnormal: Below low normal; Units: MG/DL; Status: F Lab Order: LIPASE; SPEC'M 10/27/16 05:51 Test: LIPASE; Value: 156; Range: 73-393; Units: U/L; Status: F Lab Order: TROPONIN; SPEC'M 10/27/16 05:51 Test: TROPONIN I; Value: < 0.02; Range: < 0.10; Units: NG/ML; Status: F Test Note: ; Troponin I Reference Interval for [employer] LOCI: 99th Percentile= 0.00-0.045 ng/ml Risk Stratification: <= 0.10 ng/ml Decreased Risk for Adverse Clinical Events. 0.10-1.50 ng/ml Increased Risk for Adverse Clinical Events. Evaluation of additional criterion and/or repeat testing in 2-6 hours is suggested to rule out myocardial damage. >= 1.50 ng/ml Indicative of Myocardial Injury. Radiology Order: Chest, 1 View Test: Chest, 1 View REASON FOR EXAMINATION: Shortness of Breath; CHEST, ONE VIEW:; ; HISTORY: Shortness of breath.; ; COMPARISON: 07/08/2006; ; An increase in interstitial markings is present in the lungs. The cardiac; silhouette is enlarged. The pulmonary vasculature is prominent.; ; IMPRESSION:; ; Findings consistent with congestive heart failure.; ; ; Signed by; Curt Sullivan MD 10/26/2016 11:47 A; Outcome: 12:56 Decision to Hospitalize by Provider. 14:36 Discharge Assessment: Patient awake, alert and oriented x 3. No cognitive and/or js13 functional deficits noted. Patient verbalized understanding of disposition instructions. patient administered narcotics - no. The following High Risk Discharge criteria are identified: None. Condition: stable. No special radiology studies were completed. Admission hand-off: Report Faxed. Property :Personal belongings accompany Pt. 15:20 Admission hand-off: Report Faxed Fax receipt verified by Bette Curry equal opportunity assistant. Unit js13 policy issue clerk states that the Franchesca RN taking patient is busy doing two discharges and has not looked at SBAR yet and she will have RN call when she is ready.. 16:09 Admitted to PCU accompanied by nurse, accompanied by tech, family with patient, via js13 stretcher, with oxygen, on monitor, with chart. 16:27 Patient left the ED. js13 Signatures: Dispatcher [employer] EDMS Tae Sarmiento MD MD pc Michelson, Staci, RN RN srm Peters, Mary, RN RN mcp Barnhardt, Gloria, Reg Reg gb Diana, Janel, HYDRAULIC DREDGE OPERATOR HYDRAULIC DREDGE OPERATOR ct3 Galo Roberts dem1 Fabiana Quiroz RN RN Consuelo Booth cmb Uma Sherman mm15 Corrections: (The following items were deleted from the chart) 09:47 09:45 BP 109 / 66; Resp 24bpm; 99.79 kg; Height 5 ft. 1 in.; BMI: 41.5; Pain 0/10; cmb cmb 10:07 09:45 BP 109 / 66; Resp 22bpm; 99.79 kg; Height 5 ft. 1 in.; BMI: 41.5; Pain 0/10; cmb js13 10:17 10:12 Home Meds: diovan 160/12.5mg daily (Last Dose: Unknown); archana srm 10:17 10:12 Home Meds: Amlodipine Oral once daily (Last Dose: 10/25/2016 21:00); srm srm 12:59 10:03 Respiratory: Airway is patent Respiratory effort is even, unlabored, Respiratory js13 pattern is regular, Breath sounds are clear Reports shortness of breath at rest on exertion js13 Chart Complete MTDD
[2016-10-28 17:53] VITALS: BP 134/78
[2016-10-28 19:08] VITALS: BP 130/80
--- NOTE | 2016-10-28 20:33 | IPN ---
DATE: 10/28/2016 CARDIOLOGY PROGRESS NOTE SUBJECTIVE: Has been up in her room today without shortness of breath. Is unaware of her heart rate. Continues free of any chest discomfort or dizziness. Appears to be tolerating her medications without adverse effect. OBJECTIVE: Pleasant, obese elderly woman lying virtually flat without distress. Control has significantly improved averaging in the 90s at rest, and when ambulating not increasing beyond 110-120. Blood pressure 134/78 supine, 126/74 standing, respiratory rate 18 per minute, O2 saturation 98% on room air. Afebrile. Negative fluid balance yesterday of close to two liters, yet curiously her weight today is recorded as being 2 kg higher than yesterday, ? accuracy. No pallor or cyanosis. Normal oral moisture. Trachea midline. Neck veins approximately 4 cm above the sternal angle at this time. Increased anteroposterior chest diameter with good air entry over both lung jade with no current adventitious sounds. Has plus/minus pitting one throughout both lower legs at this time. No sacral pitting edema. 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 LABORATORY DATA: Hemoglobin 15.7, normal white blood cell count and platelet count today. Electrolytes show a normalized serum potassium and other electrolytes were normal. BUN stable at 24, creatinine stable at 1.0. Fasting glucose was 93. Ultra-sensitive TSH was only marginally increased to 3.9. Fasting lipid profile showed a total cholesterol of 123, HDL 54, LDL of 46, triglycerides 116, with total/HDL ratio of 2.3. Remarkably, her digoxin level this morning was measured at 3.4, though she has no clinical manifestations of digoxin toxicity. IMPRESSION/PLAN: 1. Atrial fibrillation (paroxysmal): Her echocardiogram demonstrates this arrhythmia is likely attributed to hypertensive heart disease along with her obesity. Has no more than very mild mitral insufficiency. Ventricular response remains controlled on her digoxin and metoprolol. I have repeated digoxin level from the morning because ultimately I am hoping that she will be able to be discharged on digoxin 0.25 mg by mouth daily with metoprolol 50 or 100 twice a day for rate control. She will, of course, require oral anticoagulation Eliquis as well. 2. Heart failure (diastolic/acute): As mentioned, her echocardiogram showed evidence of hypertensive heart disease with preserved systolic function but impaired diastolic function. Following her intravenous (IV) diuretic therapy and more than four liters negative fluid balance, her estimated mean left atrial pressure at that time of her echocardiogram was upper limits of normal. She still has moderate pulmonary hypertension. At this point, her medications will include metoprolol and spironolactone and possibly digoxin once her level is not toxic. We have emphasized the importance of a modest salt and fluid intake restriction. She should be encouraged to contact us should her daily home postvoiding weight increase by more than two pounds in 24 hours or four pounds in one week. 3. Abnormal electrocardiogram: No repeat study today. Has remained free of chest discomfort. She of course will continue on protective combination metoprolol, atorvastatin and Eliquis. 4. Hypertensive heart disease (benign with heart failure): Her current blood pressure appears to be adequately controlled on her beta deepa and spironolactone therapy. At this point, her loop diuretic therapy is on hold but she will require Lasix 40 mg daily at the time for discharge. Magnesium and potassium levels have normalized with replacement therapies. 5. Cor pulmonale /right heart failure: Her echocardiogram did show moderate pulmonary hypertension with right heart chamber sizes that were upper limits of normal to mildly dilated. Her inferior vena cava (IVC) was increased in size with reduced respiratory collapse consistent with her right heart failure. Nocturnal oximetry is pending at this point. 6. Mitral valve disorder (nonrheumatic): Her echocardiogram/Doppler study showed subtle degenerative changes of her valvular structures with no more than mild mitral insufficiency. Interestingly, her chest x-ray taken earlier this morning was reported as showing no evidence of cardiopulmonary disease and normal heart size despite my measurement of her CT ratio of 17.2:31. Pulmonary vasculature is definitely improved with reduction in interstitial edema from her admission chest x-ray October 26. A dramatic improvement with diuretic therapy. I am confident she will be able to be discharged tomorrow and we will plan on seeing her in followup in my office in approximately 7-10 days' time. I thank you for allowing us to participate in the care of the patient. Best regards,
[2016-10-28] MEDS: VITAMIN D 1,000 INTERNATIONAL UNITS TABLET PO SCH (21:57)
[2016-10-28] MEDS: SIMVASTATIN 20 MG TAB PO SCH (21:57)
[2016-10-29 00:34] VITALS: BP 140/96
[2016-10-29] MEDS: METOPROLOL TART 50 MG TAB PO SCH ×2 (00:48→05:27)
[2016-10-29 03:31] VITALS: BP 130/84
[2016-10-29 05:12] LABS: BASO % 0.9 % (0.0-1.0); EOS # 0.2 K/mm3 (0.0-0.50); EOS % 3.6 % (0.0-3.0); LARGE UNSTAINED CELL # 0.2 K/mm3 (0.0-0.4); LARGE UNSTAINED CELL % 3.2 % (0.0-4.0); LYMPH % 35.2 % (24.0-44.0); MEAN CORPUSCULAR HEMOGLOBIN 32.3 pg (27.0-33.0); MEAN CORPUSCULAR HGB CONC 34.2 g/dl (32.0-36.5); MEAN CORPUSCULAR VOLUME 94.5 fl (80.0-96.0); MONO # 0.6 K/mm3 (0.0-0.8); MONO % 9.5 % (0.0-5.0); NEUTROPHILS # 2.8 K/mm3 (1.8-7.7); NEUTROPHILS % 47.5 % (36.0-66.0); PLATELET COUNT, AUTOMATED 182 k/mm3 (150-450); RED CELL DISTRIBUTION WIDTH 13.8 % (11.5-14.5); WHITE BLOOD COUNT 5.8 K/mm3 (4.0-10.0)
[2016-10-29 05:51] LABS: ALBUMIN/GLOBULIN RATIO 0.81 (1.00-1.93); ALKALINE PHOSPHATASE 155 U/L (45-117); ALT/SGPT 30 U/L (12-78); ANION GAP 8 MEQ/L (8-16); AST/SGOT 30 U/L (15-37); BILIRUBIN,TOTAL 0.9 MG/DL (0.2-1.0); BLOOD UREA NITROGEN 18 MG/DL (7-18); CALCIUM LEVEL 9.1 MG/DL (8.8-10.2); CARBON DIOXIDE LEVEL 28 MEQ/L (21-32); CHLORIDE LEVEL 106 MEQ/L (98-107); CREATININE FOR GFR 0.74 MG/DL (0.55-1.02); DIGOXIN LEVEL 2.3 NG/ML (0.5-2.0); GLOMERULAR FILTRATION RATE > 60.0 (>32); GLUCOSE, FASTING 97 MG/DL (83-110); MAGNESIUM LEVEL 2.1 MG/DL (1.8-2.4); POTASSIUM SERUM 4.8 MEQ/L (3.5-5.1); SODIUM LEVEL 142 MEQ/L (136-145); TOTAL PROTEIN 6.7 GM/DL (6.4-8.2)
[2016-10-29] MEDS: SLF 3 ML SYR IV SCH (06:00)
[2016-10-29 08:00] VITALS: BP 140/66
--- NOTE | 2016-10-29 08:29 | PULFX ---
DATE OF PROCEDURE: 10/28/2016 Nocturnal recording oximetry was performed on room air. Baseline oxygen saturation was 96%. Saturations fell as low as 84%. The pattern was variable. IMPRESSION: Abnormal nocturnal recording oximetry with variable desaturations to 84%. Rule out obstructive sleep apnea syndrome.
[2016-10-29] MEDS: OCUVITE 1 TAB PO SCH (10:00)
[2016-10-29] MEDS: APIXABAN 5 MG TAB (ELIQUIS) PO SCH (10:00)
[2016-10-29] MEDS: ASCORBIC ACID 500 MG TAB PO SCH (10:01)
[2016-10-29] MEDS: MAGNESIUM OXIDE 400 MG TAB (MAG-OX) PO SCH (10:01)
[2016-10-29] MEDS: PANTOPRAZOLE 40MG TAB (PROTONIX) PO SCH (10:01)
[2016-10-29] MEDS: OMEGA-3 1050MG CAPSULE PO SCH (10:01)
[2016-10-29] MEDS: SPIRONOLACTONE 25 MG TAB PO SCH (10:02)
[2016-10-29] MEDS: GABAPENTIN 300 MG CAP PO SCH (10:02)
[2016-10-29] MEDS: METAMUCIL (PSYLLIUM) PACKET PO SCH (10:06)
[2016-10-29] MEDS ORDERED: METO50TA2 PO (11:09)
--- NOTE | 2016-10-29 15:34 | DSES ---
DATE OF ADMISSION: 10/26/2016 DATE OF DISCHARGE: 10/29/2016 PRIMARY CARE PROVIDER: Dr. Kimbrough CONSULTATIONS: Dr. Hughes PROCEDURES PERFORMED: None. COMPLICATIONS: None. ADMISSION/DISCHARGE DIAGNOSES: 1. New-onset atrial fibrillation with rapid ventricular rate. 2. Acute congestive heart failure in the setting of new onset atrial fibrillation with RVR h 3. Hypertension. 4. Hyperlipidemia. 5 Osteoarthritis. 6. Vitamin D deficiency. 7. History of squamous cell carcinoma. 8. Previously started on Plavix for presumed peripheral vascular disease. BRIEF HOSPITAL COURSE: Ms. Bush is a pleasant 81-year-old female who presented to the emergency department with palpitations, acute shortness of breath worsening over the past week. She denied any substernal chest pain. No nausea, vomiting. No diaphoresis. In the emergency department, she was found to be in new onset atrial fibrillation with RVR, ventricular rate in the 140-150 region, was started on IV metoprolol, as well as digoxin, and the hospitalist was called for admission for further evaluation and heart rate control. She was admitted to the telemetry floor. She did not demonstrate any issues on the telemetry. Cardiac enzymes were cycled and they were unremarkable. 2-D echo did demonstrate a left ventricular ejection fraction of 65%, atrial fibrillation was noted. Mild concentric left ventricular hypertrophy with preserved systolic function, mildly dilated left atrium with Doppler evidence of impaired LV diastolic function, but currently normal estimated mean left arterial pressure. Right ventricular chamber upper limits of normal, normal size with Doppler. Moderate pulmonary hypertension, mildly dilated right atrium and inferior vena cava with slightly reduced respiratory collapse suggestive of elevated central venous pressure. Subtle degenerative changes of mitral and aortic valvular apparatus with mild mitral insufficiency and trace aortic insufficiency. Ultrasound of the right upper extremity, due to a infiltrated IV line was negative for DVT and a chest x-ray revealed no acute cardiopulmonary processes. At any rate, Dr. Hughes was consulted. The patient had begun loading doses of digoxin. Her heart rate was well controlled, but she did have an elevated dig level. Digoxin was withdrawn and she was continued on modified dose of her metoprolol and Eliquis for anticoagulation therapy. Plavix was discontinued. We did discontinue the lisinopril/hydrochlorothiazide, as well as Norvasc and an updated medication list has been formulated. PHYSICAL EXAMINATION: Today, temperature is 97.1, pulse 83, respiratory rate 18, blood pressure 140/66, SPO2 is 97% on room air. GENERAL: The patient appears to be in no acute distress. Is alert, oriented. HEENT: Unremarkable. LUNGS: Clear. HEART: Regular rate and rhythm. ABDOMEN: Soft, obese. EXTREMITIES: No edema or calf tenderness. LABORATORY DATA: White count is 5.8, hemoglobin 15.9, platelets are 182,000. Sodium 142, potassium 4.8, chloride 106, bicarbonate 28, anion gap 8, BUN 18, creatinine 0.74, glucose 97, AST is 30, ALT 30, alkaline phosphatase 155, albumin is 3.0, lipase 183. Thyroid panel is relatively unremarkable. Digoxin level is decreased from 3.4 to 2.3 today. Discharge condition is good. DISPOSITION: Discharge to home. DISCHARGE MEDICATIONS - Eliquis 5 mg twice a day - mag oxide 400 mg daily - metoprolol tartrate 50 mg twice a day - spironolactone 25 mg daily - Tylenol 650 mg as needed - vitamin C 1000 mg twice a day - calcium with vitamin D one tablet daily - vitamin D 1000 units daily - gabapentin 600 mg twice a day - garlic tablet one at night - glucosamine chondroitin daily - melatonin 10 mg at night - meloxicam 15 mg daily as needed - multivitamin one tablet daily - omega 3 one tablet daily - Protonix 40 mg daily - Simvastatin 20 mg at night DISCHARGE INSTRUCTIONS: Discharge to home. Activity as tolerated. Low-sodium, low-cholesterol diet. Followup with Dr. Hughes in the next 7-10 days. Return to the emergency department if symptoms should worsen or progress. She voices understanding. Discharge took approximately 35 minutes.
== END 2016-10-29 12:00 | disposition home or self-care (01) | DRG 194 ==
LOC: M ED 09:43 → M ED INP 13:14 → M PCU 14:30 → M ED INP 10-27 16:24 → M PCU 10-27 16:31
PROVIDERS: ADMIT Internal Medicine; ATTEND Hospitalist
DX: I11.0 Hypertensive heart disease with heart failure (principal); I50.31 Acute diastolic (congestive) heart failure; I27.81 Cor pulmonale (chronic); I34.0 Nonrheumatic mitral (valve) insufficiency; I48.0 Paroxysmal atrial fibrillation; I73.9 Peripheral vascular disease, unspecified; E78.5 Hyperlipidemia, unspecified; M19.90 Unspecified osteoarthritis, unspecified site; E55.9 Vitamin D deficiency, unspecified; E87.6 Hypokalemia; I27.2 Other secondary pulmonary hypertension; K21.9 Gastro-esophageal reflux disease without esophagitis; E66.9 Obesity, unspecified; Z85.41 Personal history of malignant neoplasm of cervix uteri; Z85.828 Personal history of other malignant neoplasm of skin; Z90.710 Acquired absence of both cervix and uterus; Z96.641 Presence of right artificial hip joint; Z79.02 Long term (current) use of antithrombotics/antiplatelets; Z79.899 Other long term (current) drug therapy; Z68.38 Body mass index [BMI] 38.0-38.9, adult

== ENCOUNTER → 2016-11-09 | Outpatient (REF) | payer OTHER ==
[~2016-11-09] MED LIST: ALDA25TA2 PO; AMLO5TAB2 PO; CALC600T57 PO; DIGO0.127 PO; ELIQ5TAB PO; GABA600T PO; GARL1CAP PO; GLUC500T53 PO; LASI40TA PO; LOPR1TAB6 PO; MAG400TA PO; MELA10TA4 PO; MELO15TA4 PO; METO-207 PO; METO50TA2 PO; MULT1TAB8 PO; OCUVTAB PO; OMEG100011 PO; PLAV75TA38 PO; PROT1TAB2 PO; TYLE650T35 PO; VALS160T PO; VITA10006 PO; VITA100066 PO; ZOCO20TA PO
[2016-11-09 17:22] LABS: CALCIUM LEVEL 10.5 MG/DL (8.8-10.2); CREATININE FOR GFR 1.01 MG/DL (0.55-1.02); GLOMERULAR FILTRATION RATE 56.1 (>32); MAGNESIUM LEVEL 2.5 MG/DL (1.8-2.4); POTASSIUM SERUM 4.6 MEQ/L (3.5-5.1)
== END ==
LOC: M SFHCPLAZ 14:10
PROVIDERS: ATTEND Internal Medicine
DX: I50.32 Chronic diastolic (congestive) heart failure (principal)

== ENCOUNTER → 2016-12-21 | Outpatient (REF) | payer OTHER ==
[2016-12-21 18:34] LABS: ALBUMIN 3.6 GM/DL (3.2-5.2); ALBUMIN/GLOBULIN RATIO 0.97 (1.00-1.93); ALKALINE PHOSPHATASE 200 U/L (45-117); ALT/SGPT 52 U/L (12-78); ANION GAP 9 MEQ/L (8-16); AST/SGOT 35 U/L (15-37); BILIRUBIN,TOTAL 0.7 MG/DL (0.2-1.0); BLOOD UREA NITROGEN 14 MG/DL (7-18); CALCIUM LEVEL 9.8 MG/DL (8.8-10.2); CARBON DIOXIDE LEVEL 31 MEQ/L (21-32); CHLORIDE LEVEL 103 MEQ/L (98-107); CHOLESTEROL LEVEL 137 MG/DL (<200); CREATININE FOR GFR 0.74 MG/DL (0.55-1.02); GLOMERULAR FILTRATION RATE > 60.0 (>32); GLUCOSE, FASTING 101 MG/DL (83-110); POTASSIUM SERUM 4.8 MEQ/L (3.5-5.1); SODIUM LEVEL 143 MEQ/L (136-145); TOTAL PROTEIN 7.3 GM/DL (6.4-8.2); TRIGLYCERIDES LEVEL 127 MG/DL (<150)
== END ==
LOC: M LAB REF 16:29
PROVIDERS: ATTEND Internal Medicine
DX: R31.9 Hematuria, unspecified (principal); I10 Essential (primary) hypertension

== ENCOUNTER → 2016-12-26 | Outpatient (REF) | payer OTHER ==
[2016-12-26 15:54] LABS: CREATININE FOR GFR 0.99 MG/DL (0.55-1.02); GLOMERULAR FILTRATION RATE 57.5 (>32); POTASSIUM SERUM 4.6 MEQ/L (3.5-5.1)
== END ==
LOC: M LAB REF 10:22
PROVIDERS: ATTEND Surgery
DX: N39.0 Urinary tract infection, site not specified (principal)

== ENCOUNTER → 2017-01-10 | Outpatient (REF) | payer OTHER ==
[2017-01-11 10:12] LABS: CALCIUM OXALATE CRYSTALS LARGE
== END ==
LOC: M SFHCPLAZ 09:14
PROVIDERS: ATTEND Internal Medicine
DX: I10 Essential (primary) hypertension (principal)

== ENCOUNTER 2017-01-31 12:13 | Day surgery (SDC) | payer OTHER ==
[~2017-01-31] VITALS: Ht 154.9 cm; Wt 89.6 kg
[~2017-01-31 12:13] MED LIST changes: +CO Q100C10 PO; +DETR1TAB4 PO; +DIOV160T2 PO; +FISH100049 PO; +FLEC50TA PO; +FURO40TA2 PO; +MULTCAP8 PO; +PRESCAP PO; +VESI5TAB PO; +VITA100037 PO
[2017-01-31] MEDS ORDERED: LR 1,000 ML IV SCH ×2 (12:15→17:45)
[2017-01-31] MEDS ORDERED: VANCOMYCIN HCL 1,000 MG, VIAL MATE ADAPTER 1 EACH in D5W 250 ML IV ONE (12:15)
[2017-01-31] MEDS ORDERED: BACITRACIN PWD 50,000 UNITS VIAL As Ordered ONE (12:57)
[2017-01-31] MEDS ORDERED: AMIODARONE HCL 360 MG/200 ML PREMIXED BAG (NEXTERONE) As Ordered ONE (12:57)
[2017-01-31] MEDS ORDERED: ISOVUE-300 61% 50ML VIAL (Q9967) As Ordered ONE (12:57)
[2017-01-31] MEDS ORDERED: LIDOCAINE 1% MDV 20ML VIAL As Ordered ONE (12:57)
[2017-01-31] MEDS ORDERED: fentaNYL 100 MCG/2 ML INJECTION (J3010) As Ordered ONE (14:58)
[2017-01-31] MEDS ORDERED: MIDAZOLAM INJ 2 MG/2 ML VIAL (J2250) As Ordered ONE (14:58)
[2017-01-31] MEDS ORDERED: LIDOCAINE 1% SDV INJ 30 ML VIAL As Ordered ONE (16:02)
[2017-01-31] MEDS ORDERED: LABETALOL HCL 100 MG/20 ML VIAL As Ordered ONE (17:07)
[2017-01-31] MEDS ORDERED: NORCO, ANEXSIA 5/325MG TABLET (HYDROcodone/ACETAMINOPHEN) PO PRN (17:45)
[2017-01-31] MEDS ORDERED: ONDANSETRON 4MG/2ML VIAL (J2405) IV PRN (17:45)
[2017-01-31] MEDS ORDERED: amLODIPine 5 MG TAB PO SCH (17:45)
[2017-01-31] MEDS ORDERED: METOPROLOL TART 50 MG TAB PO SCH (18:15)
--- NOTE | 2017-01-31 18:29 | RO ---
DATE OF PROCEDURE: 01/31/2017 TITLE OF PROCEDURE: Implantation of permanent dual-chamber pacemaker. IMPLANTING MATHEMATICS LECTURER: Dr. Hadley Hughes ANESTHESIOLOGIST: Dr. 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 POSTOPERATIVE DIAGNOSIS: Tachy-agustina syndrome / paroxysmal atrial fibrillation with rapid ventricular response. TYPE OF ANESTHESIA: Monitored local anesthesia. 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 In order to control her ventricular response she required multiple agents including metoprolol and flecainide. With this combination she converted to sinus rhythm and had been feeling quite well. She presented to my office with a heart rate that was quite slow. A Holter monitor and subsequent event monitor was performed showing observed heart rates of 36-74 with heart rates of 30s during wakeful hours. She had several asystolic pauses during wakeful hours that measured 3.4 seconds and 3.7 seconds. In light of the need for negative chronotropic therapy / antiarrhythmic therapy to prevent recurrent atrial fibrillation with rapid ventricular response. We recommended a permanent dual-chamber pacemaker be implanted. 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 Other cardiac testing included: Echocardiogram October 2016 showing mild concentric left ventricle hypertrophy with normal wall motion, mildly dilated left atrium with impaired left ventricle (LV) diastolic function. Borderline right heart chamber sizes with at least moderate pulmonary hypertension. Slightly dilated inferior vena cava (IVC) with reduced respiratory collapse. Mild mitral annular calcification with mild mitral insufficiency and mild aortic valvular sclerosis with trace insufficiency. [employer] Cardiol[facility] heart scan 11/17/2016 showed no inducible chest pain, EKG changes, and she remained in atrial fibrillation with a somewhat rapid ventricular response. Nuclear images showed mild concentric left ventricle hypertrophy with mild global LV hypokinesis, left ventricular ejection fraction (LVEF) of 39%, and normal stress SPECT myocardial perfusion images. Her somewhat soft ejection fraction was believed to be related to her rapid ventricular response atrial fibrillation at that time the study. Pleasant, stocky, overweight elderly lady laying comfortably. Heart rate 38 beats per minute and regular, blood pressure 132/78 sitting, respiratory 16 per minute, body mass index (BMI) 37. No pallor or cyanosis. Trachea midline. Jugular veins were 4 cm above the sternal angle. Increased anteroposterior chest diameter with good air entry over both lung jade. Subtle bibasilar inspiratory crepitations. Slight prolongation of expiration with a soft end expiratory wheeze. Apical impulse lateral to the sixth intercostal space. Soft S1 and normal S2 with accentuated pulmonary component of the second sound. Audible S4 with soft systolic ejection murmur over the right base and left sternal border. No audible diastolic murmur. Normal carotid upstrokes. Obese, soft and nontender abdomen. Plus/minus pitting edema one third up both lower legs. Peripheral pulses worse symmetrically reduced. Blood work showed a normal hemoglobin of 15.9 and white blood cell count of 58, platelet count was 182,000. Chemistry December 2016 showed electrolyte balance with normal BUN measuring 17, creatinine 1.0, random glucose was 86. EKG showed sinus bradycardia at 38 beats per minute. Left atrial conduction disturbance. Low QRS voltages with poor precordial R-wave progression persistent S waves in V5 and V6 in keeping with her body habitus versus pulmonary disease. Diffuse subtle ST / T-wave abnormalities. The last portable chest x-ray 10/26/2016, showed obvious cardiomegaly even allowing for portable technique. At that time she had evidence of pulmonary venous congestion and diffuse interstitial edema - had presented to the emergency room with atrial fibrillation and rapid ventricular sponsor. DESCRIPTION OF PROCEDURE: In the fasting state, having signed informed consent and receiving vancomycin 1 gram IV infusion over 1 hour, the patient was taken to the operating theater. Numerous skin electrodes were applied to facilitate continuous electrocardiographic monitoring. The left subclavian region was prepped and draped in usual fashion. Skin was infiltrated with 1% Xylocaine and the left axillary vein was catheterized using a micropuncture technique. A 5 cm incision was made several centimeters below and parallel to the left clavicle. This was carried down to the level of the pectoralis fascia and a pocket was fashioned below the level of the incision line. Two bipolar screw-in active fixation steroid eluding pacing leads were positioned to the mid high right the septum and high right atrial appendage under fluoroscopic and electrocardiographic control. The ventricular lead ([employer] model number LPA 1200M/58, serial number [id number]) measured: A stimulation threshold 0.4, V / 0.4 mf / impedance 1046 ohms. The R wave amplitude measured 10.1 mv. This lead was MRI compatible. The atrial lead ([employer] model number [id number]/[id number], serial number [id number]) measurements were: Focal and stimulation threshold 0.7 V/0.4 mf/ impedance 408 ohms. The P wave amplitude measured 2.4 mv. This lead was also MRI compatible. These leads were secured in position with sleeves sutured at their insertion site. They were then connected to a dual-chamber rate responsive pulse generator ([employer] model number NZ0795, serial number [id number]) and DDD pacing was documented. The rate responsive feature this device will be activated the recovery room. This device was also MRI compatible. This generator was placed in the pocket and secured in position with a suture through the upper right-hand corner of the epoxy header. The subcutaneous tissues were approximated using a running chromic suture and skin was closed using melony. A dry dressing was applied. The patient was returned to the recovery room in good condition. No apparent complications. Estimated blood loss less than 50 mL. Postoperative portable upright chest x-ray in the recovery room showed good lead position with no pneumothorax. Our plan is to monitor the patient overnight and she will receive an additional dose of vancomycin 1 gram IV over 1 hour, 12 hours postoperatively. At this point we can resume her customary beta-deepa and flecainide antiarrhythmic. Her Eliquis will be resumed 12 hours postop. A followup PA and left lateral chest x-ray and EKG will be performed tomorrow morning. We anticipate her discharge home prior to noon. OLVIN
--- NOTE | 2017-01-31 18:31 | REP ---
CHEST, PORTABLE: AP portable view of the chest is performed and compared to prior study of 10/28/2016. There is placement of a left dual lead pace maker which appears to be in good position. There is no pneumothorax. There is no acute infiltrate. There is some tortuosity of the thoracic aorta. IMPRESSION: Left dual lead pace maker in good position. No pneumothorax. Signed by El Garcia MD 01/31/2017 08:14 P
[2017-01-31 19:45] VITALS: BP 118/52
[2017-01-31 20:15] VITALS: BP 116/72
[2017-01-31] MEDS ORDERED: SIMVASTATIN 20 MG TAB PO SCH (21:00)
[2017-01-31] MEDS: FLECAINIDE 50MG TABLET PO SCH (21:08)
[2017-01-31] MEDS: GABAPENTIN 300 MG CAP PO SCH (21:08)
[2017-01-31 21:15] VITALS: BP 118/68
--- NOTE | 2017-01-31 21:27 | ECGEPIP ---
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
[2017-01-31 22:15] VITALS: BP 110/68
[2017-01-31 23:15] VITALS: BP 108/58
[2017-02-01 04:45] VITALS: BP 122/84
[2017-02-01] MEDS ORDERED: VANCOMYCIN HCL 1,000 MG, VIAL MATE ADAPTER 1 EACH in D5W 250 ML IV ONE (06:00)
[2017-02-01 08:00] VITALS: BP 132/78
[2017-02-01] MEDS: FLECAINIDE 50MG TABLET PO SCH (08:39)
[2017-02-01] MEDS: GABAPENTIN 300 MG CAP PO SCH (08:39)
[2017-02-01 08:40] VITALS: BP 122/84
[2017-02-01] MEDS ORDERED: PANTOPRAZOLE 40MG TAB (PROTONIX) PO SCH (09:00)
[2017-02-01] MEDS ORDERED: SPIRONOLACTONE 25 MG TAB PO SCH (09:00)
[2017-02-01] MEDS ORDERED: METOPROLOL TART 50 MG TAB PO SCH (09:00)
[2017-02-01] MEDS ORDERED: CO-ENZYME Q10 50 MG CAP PO SCH (09:00)
--- NOTE | 2017-02-01 09:32 | IPN ---
CARDIOLOGY PROGRESS NOTE DATE OF SERVICE: 02/01/2017 SUBJECTIVE: The patient claims to have had only minimal incisional discomfort overnight. Has remained free of other chest discomfort, shortness of breath, or palpitations. Her blood pressure in the recovery room was somewhat suboptimally controlled, so we had adjusted her metoprolol dosage. OBJECTIVE: A pleasant overweight elderly lady, sat comfortably. Heart rate 60 beats per minute and regular, blood pressure 120/84 sitting, respiratory rate 18 per minute, oxygen (O2) saturation 94% on room air, and she has been afebrile. Increased anteroposterior chest diameter with normal chest expansion. Her incision appears to be healing quite well. Dressing was changed. No drainage. WELDER FIRST CLASS: This has shown appropriate pacemaker performance with mostly atrially paced rhythm and spontaneous AV conduction. PA LEFT LATERAL CHEST X-RAY: Performed earlier today was reviewed independently and shows persistent cardiomegaly with slightly unfolded thoracic aorta. Normal pulmonary vasculature. Stable pacing lead position. A pulse generator left subclavian region. No pneumothorax. ELECTROCARDIOGRAM (EKG): This shows consistent atrially paced rhythm at 60 beats per minute (BPM) with spontaneous AV conduction. Complexes having a rightward axis with right bundle branch block. No primary repolarization abnormalities. IMPRESSION/PLAN: 1. Hypertensive heart disease (benign with heart failure)/heart failure (diastolic/chronic): With her controlled rhythm and freedom from recurrent atrial fibrillation with rapid ventricular response, she has been free of symptom or sign of congestion. With her adjusted medications, her blood pressure currently, she will continue on the same, metoprolol tartrate 50 mg twice a day and spironolactone 25 mg daily. 2. Paroxysmal atrial fibrillation: On her beta deepa and flecainide therapies, she has remained in an organized atrial rhythm. We will be resuming her customary Eliquis 5 mg twice a day starting tonight. Her flecainide will remain 50 mg twice a day. 3. Tachybrady syndrome/dual-chamber pacemaker in situ: As mentioned, minimal incisional discomfort. Her incision appears to be healing well. Chest x-ray confirms stable lead position. Complete pacemaker interrogation today confirms excellent intracardiac electrograms and pacing threshold with ample battery voltage estimated at 10 years. Her device is low rate set at 60. She has a rate response that has been activated. She also has AF suppression mode activated. Her auto intrinsic search has been activated to promote spontaneous AV conduction if possible. We will plan on seeing her in my office in approximately 7 days' time for a wound check and staple removal. She has been encouraged to contact us promptly for any abnormal erythema, swelling, or discharge. She has been requested to avoid getting her incision wet until her melony are removed. I have encouraged only light activities of daily living with her left arm and to avoid her driving more than very short distances until her melony are removed. Our plan is to let her go home this morning, and she will contact us should she have any questions or concerns.
--- NOTE | 2017-02-01 09:44 | REP ---
Chest two views HISTORY: Pacemaker insertion Comparison: 01/31/2017 The lungs are clear. The cardiac silhouette is enlarged. The pulmonary vasculature is normal in appearance. The bony structure is intact. The patient is status post pacemaker insertion. There is no pneumothorax. IMPRESSION: 1. Cardiomegaly. 2. The patient is status post pacemaker insertion. There is no pneumothorax. Signed by Curt Sullivan MD 02/01/2017 09:35 A
--- NOTE | 2017-02-02 07:24 | ECGEPIP ---
Stationary ECG Study [facility] Test Date: 2017-02-01 Pat Name: MICHAEL FIGUEROA Department: Room: [place] [address] Gender: F Pad Tufter: MARTIN : 1935 Requested By: Hadley Hughes Order Number: [id number] Reading MD: Juan Kimbrough Measurements Intervals [place] Rate: 60 P: 106 [place]: 186 QRS: -21 QRSD: 101 T: -18 QT: 403 QTc: 403 Interpretive Statements Atrial pacing at 60 bpm Incomplete right bundle branch block Nonspecific T-wave abnormalities Compared to prior tracing of 01/31/2017, previouscomplete right bundle branch block is now incomplete Electronically Signed On 02-02-2017 7:23:54 EDT by Juan Kimbrough
== END 2017-02-01 10:52 | disposition home or self-care (01) ==
LOC: M SDC 12:13 → M PCU 19:42 → M SDC 02-01 10:52
PROVIDERS: ATTEND Internal Medicine Cardiovascular Disease
DX: I49.5 Sick sinus syndrome (principal); I48.0 Paroxysmal atrial fibrillation; I11.0 Hypertensive heart disease with heart failure; I34.0 Nonrheumatic mitral (valve) insufficiency; I50.32 Chronic diastolic (congestive) heart failure; I27.81 Cor pulmonale (chronic); G47.9 Sleep disorder, unspecified; E78.00 Pure hypercholesterolemia, unspecified; K21.9 Gastro-esophageal reflux disease without esophagitis; R06.83 Snoring; R35.0 Frequency of micturition; R94.31 Abnormal electrocardiogram [ECG] [EKG]; Z88.0 Allergy status to penicillin; Z88.5 Allergy status to narcotic agent; Z88.6 Allergy status to analgesic agent; Z88.8 Allergy status to other drugs, medicaments and biological substances; Z79.899 Other long term (current) drug therapy; Z87.81 Personal history of (healed) traumatic fracture; Z90.710 Acquired absence of both cervix and uterus; Z78.0 Asymptomatic menopausal state; Z96.641 Presence of right artificial hip joint
CPT/HCPCS: 33208; 71010; 71020; 76000; 93005; 96374; C1785; C1898; J2250; J3010; J3370

== ENCOUNTER → 2017-02-19 | Outpatient (CLI) | payer OTHER | LOC: M SLEEP 19:55 | PROVIDERS: ATTEND Internal Medicine Pulmonary Disease | DX: R06.83 Snoring (principal) ==

== ENCOUNTER → 2017-03-26 | Outpatient (CLI) | payer OTHER ==
--- NOTE | 2017-03-30 19:26 | SLEEPCENT ---
DATE OF PROCEDURE: 03/26/2017 ORDERING PROVIDER: Dr. Rachel Nocturnal polysomnography was performed for the titration of pressure therapy in this patient with obstructive sleep apnea syndrome. Apnea hypopnea index of 11.1. For testing, the patient was fit with a ResMed Mirage FX nasal mask of standard. 4 cm of water pressure were applied to the circuit and the lights were extinguished. 7 hours and 13 minutes of data were reviewed. There were 291 minutes of sleep identified. Sleep latency was prolonged at 43 minutes. Rapid eye movement (REM) latency was normal at 87 minutes. Sleep architecture was fair with two REM periods appreciated. There was a prolonged period of wake between 2:30 and 4 a.m. resulting in a reduced sleep efficiency of 67.9%. EKG showed a sinus rhythm with an average heart rate of 60 beats per minute. EEG showed reasonably normal wave forms for wake and sleep. Respiratory events were found best palliated with CPAP at a pressure of +4 and remaining measures of sleep physiology were normal. IMPRESSION: Obstructive sleep apnea syndrome (G47.33). RECOMMENDATIONS: Nightly use of pressure therapy, 4 cm of water.
== END ==
LOC: M SLEEP 20:00
PROVIDERS: ATTEND Internal Medicine Pulmonary Disease
DX: G47.33 Obstructive sleep apnea (adult) (pediatric) (principal)

== ENCOUNTER → 2017-04-07 | Outpatient (CLI) | payer OTHER ==
[~2017-04-07] MED LIST changes: +GARL10004 PO; -GARL1CAP PO; -METO-207 PO; +METO1TAB7 PO; -METO50TA2 PO; +METO50TA7 PO; +PLAV1TAB2 PO; -PLAV75TA38 PO; -VESI5TAB PO; +VESI5TAB2 PO; -VITA100037 PO; +VITA100067 PO
--- NOTE | 2017-04-07 13:22 | REP ---
Abdominal aortic ultrasound, stat request: There are no comparison ultrasound studies. Abdominal aorta ultrasound: Abdominal Aortic Measurements are as follows: This, abdominal aorta ultrasound: Abdominal Aortic Measurements are as follows: Proximal 2.4 cm AP 2.0 cm TRV Renal Artery Level 2.0 cm AP 2.4 cm TRV Mid Aorta 1.7 cm AP 1.6 cm TRV Distal Aorta 1.6 cm AP 1.8 cm TRV R Iliac Artery 1.1 cm AP 1.3 cm TRV L Iliac Artery 1.1 cm AP 1.0 cm TRV Impression: The abdominal aorta measurements are normal. There is no evidence of abdominal aortic aneurysm. Signed by El Palmoo MD 04/07/2017 01:13 P
== END ==
LOC: M RAD 12:27
PROVIDERS: ATTEND Physician Assistant
DX: M54.5 Low back pain (principal)

== ENCOUNTER → 2017-04-13 | Outpatient (CLI) | payer OTHER ==
[2017-04-13 15:59] LABS: MEAN CORPUSCULAR HEMOGLOBIN 33.8 pg (27.0-33.0); MEAN CORPUSCULAR HGB CONC 34.7 g/dl (32.0-36.5); MEAN CORPUSCULAR VOLUME 97.5 fl (80.0-96.0); RED CELL DISTRIBUTION WIDTH 13.7 % (11.5-14.5); WHITE BLOOD COUNT 5.6 K/mm3 (4.0-10.0)
[2017-04-13 16:05] LABS: ALBUMIN 3.7 GM/DL (3.2-5.2); ALBUMIN/GLOBULIN RATIO 1.06 (1.00-1.93); ALKALINE PHOSPHATASE 169 U/L (45-117); ALT/SGPT 44 U/L (12-78); ANION GAP 7 MEQ/L (8-16); AST/SGOT 37 U/L (15-37); BILIRUBIN,TOTAL 0.7 MG/DL (0.2-1.0); BLOOD UREA NITROGEN 18 MG/DL (7-18); CALCIUM LEVEL 10.2 MG/DL (8.8-10.2); CARBON DIOXIDE LEVEL 31 MEQ/L (21-32); CHLORIDE LEVEL 106 MEQ/L (98-107); CREATININE FOR GFR 0.83 MG/DL (0.55-1.02); GLOMERULAR FILTRATION RATE > 60.0 (>32); GLUCOSE, FASTING 100 MG/DL (83-110); SODIUM LEVEL 144 MEQ/L (136-145); TOTAL PROTEIN 7.2 GM/DL (6.4-8.2)
[2017-04-13 16:07] LABS: POTASSIUM SERUM 5.2 MEQ/L (3.5-5.1)
== END ==
LOC: M WUC 13:16
PROVIDERS: ATTEND Internal Medicine
DX: I10 Essential (primary) hypertension (principal); Z79.01 Long term (current) use of anticoagulants

== ENCOUNTER → 2017-04-13 | Outpatient (CLI) | payer OTHER ==
--- NOTE | 2017-04-13 14:52 | REPMRS ---
Patient History The patient states she had a clinical breast exam in 10/2016 Patient has history of cervical cancer at age 39. Family history of breast cancer in maternal cousin at age 50. Digital Woman Screen Mammo: April 13, 2017 - Exam #: [id number] Bilateral CC and MLO view(s) were taken. Technologist: Tiffanie Keller, Technologist Prior study comparison: February 05, 2016, digital woman screen mammo performed at [facility]. February 04, 2015, digital woman screen mammo performed at [facility]. January 29, 2014, digital woman screen mammo performed at [facility]. FINDINGS: There are scattered fibroglandular densities. There is a pacemaker power plant projecting over the left axilla on the MLO and CC views. There has been no change in the appearance of the mammogram from the prior studies. There is a mild amount of scattered fibroglandular density which is fairly symmetric. There is no interval development of dominant mass, architectural distortion, or clustered microcalcification suggestive of malignancy. ASSESSMENT: BI-RADS/ACR category 1 mammogram. Negative. Recommendation Routine screening mammogram in 1 year (for women over age 40). This mammogram was interpreted with the aid of an FDA-approved computer-aided dectection system. Electronically Signed By: Dameon Camejo MD 04/13/17 [id number]
== END ==
LOC: M WHC 08:50
PROVIDERS: ATTEND Internal Medicine
DX: Z12.31 Encounter for screening mammogram for malignant neoplasm of breast (principal); Z95.0 Presence of cardiac pacemaker

== ENCOUNTER → 2017-05-25 | Outpatient (CLI) | payer MEDICARE ==
--- NOTE | 2017-05-25 11:55 | REP ---
PA and lateral chest: Comparison is 02/01/2017. There is a dual-chamber pacemaker entering from left with the pacing tips in satisfactory locations, unchanged. The lung jade are clear. There is cardiomegaly, unchanged. The leigh and mediastinum are unremarkable. There is thoracic scoliosis convex right in the upper thoracic spine, unchanged. Impression: Chronic cardiomegaly. Pacemaker. No interval change. Signed by El Palomo MD 05/25/2017 11:45 A
== END ==
LOC: M RAD 10:25
PROVIDERS: ATTEND Nurse Practitioner Family
DX: Z95.0 Presence of cardiac pacemaker (principal)

== ENCOUNTER → 2017-10-17 | Outpatient (REF) | payer MEDICARE ==
[2017-10-17 13:34] LABS: HEMATOCRIT 40.5 % (36.0-47.0); HEMOGLOBIN 14.8 g/dl (12.0-16.0); MEAN CORPUSCULAR HEMOGLOBIN 35.7 pg (27.0-33.0); MEAN CORPUSCULAR HGB CONC 36.5 g/dl (32.0-36.5); MEAN CORPUSCULAR VOLUME 97.6 fl (80.0-96.0); PLATELET COUNT, AUTOMATED 182 10^3/uL (150-450); RED BLOOD COUNT 4.15 10^6/uL (4.00-5.40); RED CELL DISTRIBUTION WIDTH 13.8 % (11.5-14.5)
[2017-10-17 14:04] LABS: ALBUMIN 3.5 GM/DL (3.2-5.2); ALBUMIN/GLOBULIN RATIO 1.13 (1.00-1.93); ALKALINE PHOSPHATASE 159 U/L (45-117); ALT/SGPT 55 U/L (12-78); ANION GAP 6 MEQ/L (8-16); AST/SGOT 43 U/L (7-37); BILIRUBIN,TOTAL 0.5 MG/DL (0.2-1.0); BLOOD UREA NITROGEN 27 MG/DL (7-18); CARBON DIOXIDE LEVEL 29 MEQ/L (21-32); CHLORIDE LEVEL 108 MEQ/L (98-107); CHOLESTEROL LEVEL 145 MG/DL (<200); CHOLESTEROL RISK RATIO 2.685 (<5); CREATININE FOR GFR 0.76 MG/DL (0.55-1.02); GLOMERULAR FILTRATION RATE > 60.0 (>32); GLUCOSE, FASTING 92 MG/DL (83-110); HDL CHOLESTEROL 54 MG/DL (>40); LDL CHOLESTEROL 74.4 MG/DL (<100); MAGNESIUM LEVEL 2.2 MG/DL (1.8-2.4); NON-HDL-C 91 MG/DL; POTASSIUM SERUM 4.6 MEQ/L (3.5-5.1); SODIUM LEVEL 143 MEQ/L (136-145); TOTAL PROTEIN 6.6 GM/DL (6.4-8.2); TRIGLYCERIDES LEVEL 83 MG/DL (<150)
[2017-10-17 19:45] LABS: AMORPHOUS SEDIMENT SMALL (NEGATIVE); APPEARANCE, URINE HAZY (CLEAR); BACTERIA, URINE AUTO NEGATIVE (NEGATIVE); BILIRUBIN, URINE AUTO NEGATIVE (NEGATIVE); BLOOD, URINE BLOOD NEGATIVE (NEGATIVE); COLOR, URINE YELLOW (YELLOW); GLUCOSE, URINE (UA) AUTO NEGATIVE (NEGATIVE); KETONE, URINE AUTO NEGATIVE (NEGATIVE); LEUKOCYTE ESTERASE, URINE AUTO NEGATIVE (NEGATIVE); MUCUS, URINE SMALL (NEGATIVE); NITRITE, URINE AUTO NEGATIVE (NEGATIVE); PROTEIN, URINE AUTO NEGATIVE (NEGATIVE); RBC, URINE AUTO 0 /HPF (0-3); SPECIFIC GRAVITY URINE AUTO 1.026 (1.002-1.035); SQUAMOUS EPITHELIAL CELL UR AU 2 /HPF (0-6); UROBILINOGEN, URINE AUTO 0.2 mg/dL (0.0-2.0); WBC, URINE AUTO 2 /HPF (0-3)
== END ==
LOC: M SFHCPLAZ 11:05
DX: Z51.81 Encounter for therapeutic drug level monitoring (principal); Z79.899 Other long term (current) drug therapy; Z79.01 Long term (current) use of anticoagulants; I10 Essential (primary) hypertension; E78.00 Pure hypercholesterolemia, unspecified; R31.9 Hematuria, unspecified
CPT/HCPCS: 83735

== ENCOUNTER → 2018-04-11 | Outpatient (REF) | payer MEDICARE ==
[2018-04-11 13:32] LABS: ALBUMIN 3.6 GM/DL (3.2-5.2); ALBUMIN/GLOBULIN RATIO 1.16 (1.00-1.93); ALKALINE PHOSPHATASE 121 U/L (45-117); ALT/SGPT 36 U/L (12-78); ANION GAP 8 MEQ/L (8-16); AST/SGOT 21 U/L (7-37); BILIRUBIN,TOTAL 0.6 MG/DL (0.2-1.0); BLOOD UREA NITROGEN 20 MG/DL (7-18); CALCIUM LEVEL 9.8 MG/DL (8.8-10.2); CARBON DIOXIDE LEVEL 29 MEQ/L (21-32); CHLORIDE LEVEL 108 MEQ/L (98-107); CREATININE FOR GFR 0.89 MG/DL (0.55-1.30); GLOMERULAR FILTRATION RATE > 60.0 (>32); GLUCOSE, FASTING 91 MG/DL (70-100); MAGNESIUM LEVEL 2.2 MG/DL (1.8-2.4); POTASSIUM SERUM 4.5 MEQ/L (3.5-5.1); SODIUM LEVEL 145 MEQ/L (136-145); TOTAL PROTEIN 6.7 GM/DL (6.4-8.2)
[2018-04-11 13:36] LABS: HEMATOCRIT 43.5 % (36.0-47.0); HEMOGLOBIN 15.2 g/dl (12.0-15.5); MEAN CORPUSCULAR HEMOGLOBIN 33.9 pg (27.0-33.0); MEAN CORPUSCULAR HGB CONC 34.9 g/dl (32.0-36.5); MEAN CORPUSCULAR VOLUME 97.1 fl (80.0-96.0); PLATELET COUNT, AUTOMATED 187 10^3/uL (150-450); RED BLOOD COUNT 4.48 10^6/uL (4.00-5.40); RED CELL DISTRIBUTION WIDTH 13.4 % (11.5-14.5); WHITE BLOOD COUNT 5.5 10^3/uL (4.0-10.0)
== END ==
LOC: M SFHCPLAZ 09:57
DX: Z51.81 Encounter for therapeutic drug level monitoring (principal); Z79.01 Long term (current) use of anticoagulants; I10 Essential (primary) hypertension
CPT/HCPCS: 83735

== ENCOUNTER → 2018-04-19 | Outpatient (CLI) | payer MEDICARE | LOC: M WHC 12:43 | DX: Z12.31 Encounter for screening mammogram for malignant neoplasm of breast (principal) | CPT/HCPCS: 77067 ==

== ENCOUNTER → 2018-10-18 | Outpatient (REF) | payer MEDICARE ==
[~2018-10-18] MED LIST changes: -AMLO5TAB2 PO; +AMLO5TAB6 PO; -DETR1TAB4 PO; +DETR1TAB5 PO; +FLEC50HA PO; -FLEC50TA PO; -GABA600T PO; +GABA600T4 PO; -LASI40TA PO; +LASI40TA9 PO; +MELO15TA28 PO; -MELO15TA4 PO
[2018-10-18 12:59] LABS: ALBUMIN 3.6 GM/DL (3.2-5.2); ALT/SGPT 42 U/L (12-78); BILIRUBIN,TOTAL 0.5 MG/DL (0.2-1.0); BLOOD UREA NITROGEN 19 MG/DL (7-18); CALCIUM LEVEL 9.5 MG/DL (8.8-10.2); CARBON DIOXIDE LEVEL 27 MEQ/L (21-32); CHLORIDE LEVEL 107 MEQ/L (98-107); CHOLESTEROL LEVEL 158 MG/DL (<200); CHOLESTEROL RISK RATIO 3.361 (<5); CREATININE FOR GFR 0.79 MG/DL (0.55-1.30); GLOMERULAR FILTRATION RATE > 60.0 (>32); GLUCOSE, FASTING 86 MG/DL (70-100); HDL CHOLESTEROL 47 MG/DL (>40); LDL CHOLESTEROL 85 MG/DL (<100); MAGNESIUM LEVEL 2.2 MG/DL (1.8-2.4); NON-HDL-C 111 MG/DL; POTASSIUM SERUM 4.5 MEQ/L (3.5-5.1); SODIUM LEVEL 141 MEQ/L (136-145); TOTAL PROTEIN 6.8 GM/DL (6.4-8.2); TRIGLYCERIDES LEVEL 129 MG/DL (<150)
== END ==
LOC: M SFHCPLAZ 09:57
PROVIDERS: ATTEND Internal Medicine
DX: R94.6 Abnormal results of thyroid function studies (principal); I11.0 Hypertensive heart disease with heart failure; E78.00 Pure hypercholesterolemia, unspecified

== ENCOUNTER → 2019-02-08 | Outpatient (REF) | payer MEDICARE ==
[~2019-02-08] MED LIST changes: -DIOV160T2 PO; +DIOV160T3 PO
[2019-02-08 14:00] LABS: BLOOD UREA NITROGEN 19 MG/DL (7-18); CREATININE FOR GFR 0.88 MG/DL (0.55-1.30); GLOMERULAR FILTRATION RATE > 60.0 (>32)
== END ==
LOC: M LABDRAW1 11:58
PROVIDERS: ATTEND Orthopaedic Surgery Sports Medicine
DX: M19.011 Primary osteoarthritis, right shoulder (principal)

== ENCOUNTER → 2019-02-16 | Outpatient (CLI) | payer MEDICARE ==
[~2019-02-16] MED LIST changes: +CONRAY-43 43% 50ML VIAL (Q9960) As Ordered ONE
--- NOTE | 2019-02-16 15:48 | REP ---
CT arthrography right shoulder: History: Primary osteoarthritis right shoulder. Rule out rotator cuff tear. No comparison right shoulder imaging. Technique: The injection procedure is performed and dictated separately. Helical scanning is acquired. Coronal and sagittal MPR images are generated. Findings: Digital drying machine tender radiograph demonstrates a bipolar pacemaker in the enlarged heart. There is some injection artifact in the anterior deltoid muscle. There is good filling and opacification of the shoulder articulation. There is filling of a large subacromial subdeltoid bursal effusion. There is a large full-thickness gap in the supraspinatus tendon allowing filling of the subacromial subdeltoid bursal effusion. The full-thickness cuff tear measures 10 mm in greatest medial to lateral span. There is opacification of the hypertrophied AC joint as well. No loose body is seen. No definite labral tear is appreciated. Biceps tendon appears to be within the bony bicipital groove. There is diffuse osteopenia. Impression: Large full-thickness supraspinatus cuff tear. Large subacromial subdeltoid bursal effusion. AC joint osteoarthritis. Electronically Signed by Enmanuel Camejo MD 02/16/2019 07:58 P
--- NOTE | 2019-02-21 11:39 | REP ---
Reason For Exam/Comment: Primary osteoarthritis of the right shoulder Procedure: Right shoulder CT arthrogram The procedure was performed by URIEL Bailey, under the direct supervision of Dr. Garcia. The benefits and risks including but not limited to pain, infection, bleeding and anaphylaxis were explained to the patient and informed consent was obtained both verbally and written. Directly prior to the start of the procedure, a formal timeout was completed in the procedure room. Technique: The right glenohumeral was localized using fluoroscopic guidance. The skin was prepped and draped in the usual sterile fashion. 5 mL of 1% lidocaine was used as a local anesthetic. Using fluoroscopic guidance a 22-gauge spinal needle was inserted and advanced to the right glenohumeral joint space. 12 mL of Conray 43 was injected to verify needle placement, and for post procedural imaging. The needle was removed and the patient was taken to CT for post procedural imaging. The patient tolerated the procedure well and there were no immediate complications. 0.3 minutes of fluoroscopy time was utilized for this procedure. Reviewed by URIEL Todd 02/16/2019 10:00 A Electronically Signed by El Garcia MD 02/21/2019 11:31 A
== END ==
LOC: M RADPRO 08:32
PROVIDERS: ATTEND Orthopaedic Surgery Sports Medicine
DX: M75.101 Unspecified rotator cuff tear or rupture of right shoulder, not specified as traumatic (principal); M25.411 Effusion, right shoulder; M19.011 Primary osteoarthritis, right shoulder; Z95.0 Presence of cardiac pacemaker
CPT/HCPCS: 23350; 73201; 77002; Q9960

== ENCOUNTER → 2019-03-15 | Outpatient (CLI) | payer MEDICARE ==
[~2019-03-15] MED LIST changes: -CONRAY-43 43% 50ML VIAL (Q9960) As Ordered ONE
--- NOTE | 2019-03-15 12:47 | REP ---
RIGHT KNEE, FOUR VIEWS: HISTORY: Osteoarthritis. There is no acute fracture or dislocation. There is moderate narrowing of the medial knee joint space and patellofemoral joint space. There is severe narrowing of the lateral knee joint space. Chondrocalcinosis is present. Osteophytes are present on femur, tibia, and patella. The bony structure is osteopenic. A small suprapatellar joint effusion is present. IMPRESSION: Degenerative change as described above. Electronically Signed by Curt Sullivan MD 03/15/2019 01:01 P
== END ==
LOC: M WUC 12:02
PROVIDERS: ATTEND Physician Assistant
DX: M17.11 Unilateral primary osteoarthritis, right knee (principal)

== ENCOUNTER → 2019-04-25 | Outpatient (REF) | payer MEDICARE ==
[2019-04-25 11:40] LABS: HEMATOCRIT 45.6 % (36.0-47.0); HEMOGLOBIN 15.6 g/dl (12.0-15.5); MEAN CORPUSCULAR HEMOGLOBIN 33.4 pg (27.0-33.0); MEAN CORPUSCULAR HGB CONC 34.2 g/dl (32.0-36.5); MEAN CORPUSCULAR VOLUME 97.6 fl (80.0-96.0); PLATELET COUNT, AUTOMATED 194 10^3/uL (150-450); RED BLOOD COUNT 4.67 10^6/uL (4.00-5.40); WHITE BLOOD COUNT 5.8 10^3/uL (4.0-10.0)
[2019-04-25 12:58] LABS: ALBUMIN 3.8 GM/DL (3.2-5.2); ALT/SGPT 36 U/L (12-78); BILIRUBIN,TOTAL 0.6 MG/DL (0.2-1.0); BLOOD UREA NITROGEN 24 MG/DL (7-18); CALCIUM LEVEL 10.2 MG/DL (8.8-10.2); CARBON DIOXIDE LEVEL 30 MEQ/L (21-32); CHLORIDE LEVEL 108 MEQ/L (98-107); CHOLESTEROL LEVEL 154 MG/DL (<200); CREATININE FOR GFR 0.85 MG/DL (0.55-1.30); GLOMERULAR FILTRATION RATE > 60.0 (>32); GLUCOSE, FASTING 99 MG/DL (70-100); HDL CHOLESTEROL 44 MG/DL (>40); LDL CHOLESTEROL 82 MG/DL (<100); MAGNESIUM LEVEL 2.4 MG/DL (1.8-2.4); NON-HDL-C 110 MG/DL; POTASSIUM SERUM 4.4 MEQ/L (3.5-5.1); SODIUM LEVEL 144 MEQ/L (136-145); TRIGLYCERIDES LEVEL 141 MG/DL (<150)
== END ==
LOC: M SFHCPLAZ 09:26
PROVIDERS: ATTEND Internal Medicine
DX: R94.6 Abnormal results of thyroid function studies (principal); I11.0 Hypertensive heart disease with heart failure; E78.00 Pure hypercholesterolemia, unspecified; Z79.01 Long term (current) use of anticoagulants

== ENCOUNTER → 2019-04-25 | Outpatient (CLI) | payer MEDICARE ==
--- NOTE | 2019-04-25 10:16 | REPMRS ---
Patient History The patient states she has not had a clinical breast exam in over a year. Patient has history of cervical cancer at age 39. Family history of breast cancer at age 50 in maternal cousin. No Hormone Replacement Therapy Digital Woman Screen Mammo: April 25, 2019 - Exam #: [id number] Bilateral CC and MLO view(s) were taken. Technologist: Petra Wills, Technologist Prior study comparison: April 19, 2018, bilateral digital woman screen mammo performed at [facility]. April 13, 2017, digital woman screen mammo performed at [facility]. February 05, 2016, digital woman screen mammo performed at [facility]. FINDINGS: There are scattered fibroglandular densities. The pacemaker power plant overlies the left breast as before. There is a stable nodule projecting inferiorly and medially in the left breast unchanged. There has been no change in the appearance of the mammogram from the prior studies. There is a mild amount of scattered fibroglandular density which is fairly symmetric. There is no interval development of dominant mass, architectural distortion, or grouped microcalcification suggestive of malignancy. 3-D tomosynthesis shows no additional findings. Assessment: BI-RADS/ACR category 2 mammogram. Benign Findings. Recommendation Routine screening mammogram of both breasts in 1 year (for women over age 40). This patient's Lifetime Breast Cancer Risk is estimated at 1.2 %. This mammogram was interpreted with the aid of an FDA-approved computer-aided dectection system. Electronically Signed By: Dameon Camejo MD 04/25/19 [id number]
== END ==
LOC: M WHC 08:37
PROVIDERS: ATTEND Internal Medicine
DX: Z12.31 Encounter for screening mammogram for malignant neoplasm of breast (principal); Z85.41 Personal history of malignant neoplasm of cervix uteri; Z95.0 Presence of cardiac pacemaker; R94.6 Abnormal results of thyroid function studies; I11.0 Hypertensive heart disease with heart failure; E78.00 Pure hypercholesterolemia, unspecified; Z79.01 Long term (current) use of anticoagulants

== ENCOUNTER → 2019-10-24 | Outpatient (CLI) | payer MEDICARE ==
[~2019-10-24] MED LIST changes: -VALS160T PO; +VALS160T2 PO
[2019-10-24 13:49] LABS: ALBUMIN 3.7 GM/DL (3.2-5.2); ALT/SGPT 30 U/L (12-78); BILIRUBIN,TOTAL 0.8 MG/DL (0.2-1.0); BLOOD UREA NITROGEN 17 MG/DL (7-18); CARBON DIOXIDE LEVEL 27 MEQ/L (21-32); CHLORIDE LEVEL 107 MEQ/L (98-107); GLOMERULAR FILTRATION RATE > 60.0 (>32); GLUCOSE, FASTING 90 MG/DL (70-100); MAGNESIUM LEVEL 2.3 MG/DL (1.8-2.4); POTASSIUM SERUM 4.7 MEQ/L (3.5-5.1); SODIUM LEVEL 142 MEQ/L (136-145)
== END ==
LOC: M PLALAB 09:37
PROVIDERS: ATTEND Internal Medicine
DX: I11.0 Hypertensive heart disease with heart failure (principal)

== ENCOUNTER → 2020-04-29 | Outpatient (REF) | payer MEDICARE ==
[2020-04-29 15:30] LABS: HEMATOCRIT 42.1 % (36.0-47.0); HEMOGLOBIN 15.2 g/dl (12.0-15.5); MEAN CORPUSCULAR HEMOGLOBIN 36.6 pg (27.0-33.0); MEAN CORPUSCULAR HGB CONC 36.1 g/dl (32.0-36.5); MEAN CORPUSCULAR VOLUME 101.4 fl (80.0-96.0); PLATELET COUNT, AUTOMATED 197 10^3/uL (150-450); RED BLOOD COUNT 4.15 10^6/uL (4.00-5.40); WHITE BLOOD COUNT 6.3 10^3/uL (4.0-10.0)
[2020-04-29 15:58] LABS: ALBUMIN 3.6 GM/DL (3.2-5.2); ALT/SGPT 35 U/L (12-78); BILIRUBIN,TOTAL 0.6 MG/DL (0.2-1.0); BLOOD UREA NITROGEN 18 MG/DL (7-18); CALCIUM LEVEL 9.9 MG/DL (8.8-10.2); CARBON DIOXIDE LEVEL 32 MEQ/L (21-32); CHLORIDE LEVEL 108 MEQ/L (98-107); CHOLESTEROL LEVEL 156 MG/DL (<200); CHOLESTEROL RISK RATIO 3.466 (<5); CREATININE FOR GFR 0.91 MG/DL (0.55-1.30); GLOMERULAR FILTRATION RATE > 60.0 (>32); GLUCOSE, FASTING 91 MG/DL (70-100); HDL CHOLESTEROL 45 MG/DL (>40); LDL CHOLESTEROL 75 MG/DL (<100); MAGNESIUM LEVEL 2.2 MG/DL (1.8-2.4); NON-HDL-C 111 MG/DL; POTASSIUM SERUM 4.9 MEQ/L (3.5-5.1); SODIUM LEVEL 143 MEQ/L (136-145); TOTAL PROTEIN 6.9 GM/DL (6.4-8.2); TRIGLYCERIDES LEVEL 178 MG/DL (<150)
== END ==
LOC: M PLALAB 12:58
PROVIDERS: ATTEND Internal Medicine
DX: K21.9 Gastro-esophageal reflux disease without esophagitis (principal); I11.0 Hypertensive heart disease with heart failure; E78.00 Pure hypercholesterolemia, unspecified; R94.6 Abnormal results of thyroid function studies

== ENCOUNTER → 2020-04-29 | Outpatient (CLI) | payer MEDICARE ==
--- NOTE | 2020-04-29 13:09 | REPMRS ---
Patient History The patient states she has not had a clinical breast exam in over a year. Family history of breast cancer at age 50 in maternal cousin. No Hormone Replacement Therapy Digital Woman Screen Mammo: April 29, 2020 - Exam #: [id number] Bilateral CC and MLO view(s) were taken. Technologist: Juju Noyola Technologist Prior study comparison: April 25, 2019, bilateral digital woman screen mammo performed at [facility]. April 19, 2018, bilateral digital woman screen mammo performed at [facility]. April 13, 2017, digital woman screen mammo performed at [facility]. FINDINGS: There are scattered fibroglandular densities. The Volpara volumetric breast density category is:B. A stable nodular opacity and pacemaker power plant project on the left. There has been no change in the appearance of the mammogram from the prior studies. There is a mild amount of scattered fibroglandular density which is fairly symmetric. There is no interval development of dominant mass, architectural distortion, or grouped microcalcification suggestive of malignancy. 3-D tomosynthesis shows no additional findings. Assessment: BI-RADS/ACR category 2 mammogram. Benign Findings. Recommendation Routine screening mammogram of both breasts in 1 year (for women over age 40). This patient's Lifetime Breast Cancer Risk is estimated at 0.8 %. This mammogram was interpreted with the aid of an FDA-approved computer-aided dectection system. Electronically Signed By: Dameon Camejo MD 04/29/20 [id number]
== END ==
LOC: M WHC 08:16
PROVIDERS: ATTEND Internal Medicine
DX: Z12.31 Encounter for screening mammogram for malignant neoplasm of breast (principal); K21.9 Gastro-esophageal reflux disease without esophagitis; I11.0 Hypertensive heart disease with heart failure; E78.00 Pure hypercholesterolemia, unspecified; R94.6 Abnormal results of thyroid function studies; Z95.0 Presence of cardiac pacemaker

== ENCOUNTER → 2020-10-06 | Outpatient (REF) | payer MEDICARE ==
[~2020-10-06] MED LIST changes: +ACET650T61 PO; +AMLO1TAB24 PO; -AMLO5TAB6 PO; -TYLE650T35 PO
[2020-10-06 13:59] LABS: ALBUMIN 3.4 GM/DL (3.2-5.2); ALT/SGPT 45 U/L (12-78); BILIRUBIN,TOTAL 0.5 MG/DL (0.2-1.0); BLOOD UREA NITROGEN 18 MG/DL (7-18); CALCIUM LEVEL 9.9 MG/DL (8.8-10.2); CARBON DIOXIDE LEVEL 31 MEQ/L (21-32); CHLORIDE LEVEL 107 MEQ/L (98-107); CREATININE FOR GFR 0.79 MG/DL (0.55-1.30); GLOMERULAR FILTRATION RATE > 60.0 (>32); GLUCOSE, FASTING 92 MG/DL (70-100); MAGNESIUM LEVEL 2.2 MG/DL (1.8-2.4); POTASSIUM SERUM 4.7 MEQ/L (3.5-5.1); SODIUM LEVEL 142 MEQ/L (136-145); TOTAL PROTEIN 6.6 GM/DL (6.4-8.2)
== END ==
LOC: M PLALAB 10:58
PROVIDERS: ATTEND Internal Medicine
DX: I11.0 Hypertensive heart disease with heart failure (principal)

== ENCOUNTER → 2021-03-26 | Outpatient (REF) | payer MEDICARE ==
[~2021-03-26] MED LIST changes: -MAG400TA PO; +MAGN400T35 PO
[2021-03-26 15:34] LABS: BASO % 0.5 % (0.0-1.0); EOS # 0.1 10^3/uL (0.0-0.5); EOS % 1.2 % (0.0-3.0); HEMATOCRIT 44.6 % (36.0-47.0); HEMOGLOBIN 15.1 g/dl (12.0-15.5); LYMPH # 2.1 10^3/uL (1.5-5.0); LYMPH % 31.2 % (24.0-44.0); MEAN CORPUSCULAR HEMOGLOBIN 33.3 pg (27.0-33.0); MEAN CORPUSCULAR HGB CONC 33.9 g/dl (32.0-36.5); MEAN CORPUSCULAR VOLUME 98.5 fl (80.0-96.0); MONO # 0.6 10^3/uL (0.0-0.8); MONO % 8.9 % (2.0-8.0); NEUTROPHILS # 3.8 10^3/uL (1.5-8.5); PLATELET COUNT, AUTOMATED 211 10^3/uL (150-450); RED BLOOD COUNT 4.53 10^6/uL (4.00-5.40); WHITE BLOOD COUNT 6.6 10^3/uL (4.0-10.0)
[2021-03-26 16:15] LABS: ALBUMIN 3.4 GM/DL (3.2-5.2); ALT/SGPT 34 U/L (12-78); BILIRUBIN,TOTAL 0.5 MG/DL (0.2-1.0); BLOOD UREA NITROGEN 18 MG/DL (7-18); CALCIUM LEVEL 9.3 MG/DL (8.8-10.2); CARBON DIOXIDE LEVEL 28 MEQ/L (21-32); CHLORIDE LEVEL 109 MEQ/L (98-107); CHOLESTEROL LEVEL 155 MG/DL (<200); CHOLESTEROL RISK RATIO 3.604 (<5); CREATININE FOR GFR 0.74 MG/DL (0.55-1.30); GLOMERULAR FILTRATION RATE > 60.0 (>32); GLUCOSE, FASTING 83 MG/DL (70-100); HDL CHOLESTEROL 43 MG/DL (>40); LDL CHOLESTEROL 68 MG/DL (<100); MAGNESIUM LEVEL 2.3 MG/DL (1.8-2.4); NON-HDL-C 112 MG/DL; POTASSIUM SERUM 4.6 MEQ/L (3.5-5.1); SODIUM LEVEL 140 MEQ/L (136-145); TOTAL PROTEIN 6.6 GM/DL (6.4-8.2); TRIGLYCERIDES LEVEL 220 MG/DL (<150)
== END ==
LOC: M PLALAB 14:35
PROVIDERS: ATTEND Internal Medicine
DX: Z79.01 Long term (current) use of anticoagulants (principal); I11.0 Hypertensive heart disease with heart failure; E78.00 Pure hypercholesterolemia, unspecified; R94.6 Abnormal results of thyroid function studies; Z96.641 Presence of right artificial hip joint

== ENCOUNTER → 2021-03-26 | Outpatient (CLI) | payer MEDICARE ==
[2021-03-26 15:35] LABS: BASO # 0.1 10^3/uL (0.0-0.2); BASO % 0.8 % (0.0-1.0); EOS # 0.1 10^3/uL (0.0-0.5); EOS % 1.2 % (0.0-3.0); HEMATOCRIT 45.5 % (36.0-47.0); HEMOGLOBIN 15.2 g/dl (12.0-15.5); LYMPH # 2.1 10^3/uL (1.5-5.0); LYMPH % 32.7 % (24.0-44.0); MEAN CORPUSCULAR HGB CONC 33.4 g/dl (32.0-36.5); MEAN CORPUSCULAR VOLUME 98.9 fl (80.0-96.0); MONO # 0.6 10^3/uL (0.0-0.8); MONO % 8.9 % (2.0-8.0); NEUTROPHILS # 3.6 10^3/uL (1.5-8.5); NEUTROPHILS % 55.9 % (36.0-66.0); PLATELET COUNT, AUTOMATED 207 10^3/uL (150-450); WHITE BLOOD COUNT 6.4 10^3/uL (4.0-10.0)
[2021-03-26 16:21] LABS: ERYTHROCYTE SEDIMENTATION RATE 11 mm/hr (0-30)
== END ==
LOC: M PLALAB 14:37
PROVIDERS: ATTEND Orthopaedic Surgery
DX: Z96.641 Presence of right artificial hip joint (principal)

== ENCOUNTER → 2021-04-07 | Outpatient (CLI) | payer MEDICARE ==
--- NOTE | 2021-04-07 11:08 | REPVR ---
PROCEDURE INFORMATION: Exam: CT Lumbar Spine Without Contrast Exam date and time: 04/07/2021 10:09 AM Age: 85 years old Clinical indication: Low back pain; Additional info: Dd lumbar region TECHNIQUE: Imaging protocol: Computed tomography images of the lumbar spine without contrast. Radiation optimization: All CT scans at this facility use at least one of these dose optimization techniques: automated exposure control; mA and/or kV adjustment per patient size (includes targeted exams where dose is matched to clinical indication); or iterative reconstruction. COMPARISON: No relevant prior studies available. FINDINGS: Vertebrae: There is 4 mm of grade 1 anterolisthesis of L4 with respect to L5 and L5 with respect to S1. Normal vertebral body alignment is otherwise preserved. Vertebral body heights are within normal limits. Discs/Spinal canal/Neural foramina: There is severe intervertebral disc space loss at T10/11, T12/L1, L1/L2, L4/5, and L5/S1, with multifocal vacuum phenomenon and endplate changes. There is moderate intervertebral disc space loss at L3/4. There is multilevel facet hypertrophy. At L4/5, disc osteophyte complex/uncovering and facet hypertrophy contribute to moderate to severe right and severe left neural foraminal narrowing. At L5/S1, disc osteophyte complex/uncovering related to listhesis and facet hypertrophy contribute to moderate right and moderate to severe left neural foraminal narrowing. At L4/5, there is moderate canal stenosis. Soft tissues: Unremarkable. Other: There is a nonobstructing left renal calculus. There is sigmoid diverticulosis. IMPRESSION: Degenerative disc disease and spondylosis. At L4/5, there is moderate to severe right and severe left neural foraminal narrowing. At L5/S1, there is moderate right and moderate to severe left neural foraminal narrowing. Electronically signed by: Aruna James On 04/07/2021 11:08:32 AM
== END ==
LOC: M RAD 09:49
PROVIDERS: ATTEND Orthopaedic Surgery
DX: M51.36 Other intervertebral disc degeneration, lumbar region (principal); M47.816 Spondylosis without myelopathy or radiculopathy, lumbar region

== ENCOUNTER → 2021-06-11 | Outpatient (CLI) | payer MEDICARE ==
--- NOTE | 2021-06-11 13:15 | REPMRS ---
Patient History The patient states she has not had a clinical breast exam in over a year. Family history of breast cancer at age 50 in maternal cousin. No Hormone Replacement Therapy Patient states no breast complaints today. Patient has signed MRS History Sheet. Digital Woman Screen Mammo: June 11, 2021 - Exam #: [id number] Bilateral CC and MLO view(s) were taken. Technologist: Tiffanie Keller, Technologist Prior study comparison: April 29, 2020, bilateral digital woman screen mammo performed at [facility]. April 25, 2019, bilateral digital woman screen mammo performed at [facility]. April 19, 2018, bilateral digital woman screen mammo performed at [facility]. FINDINGS: There are scattered fibroglandular densities. The Volpara volumetric breast density category is:B. Pacemaker power plant is again seen projecting on the left. There is a stable nodule in the left breast as well. There has been no change in the appearance of the mammogram from the prior studies. There is a mild amount of scattered fibroglandular density which is fairly symmetric. There is no interval development of dominant mass, architectural distortion, or grouped microcalcification suggestive of malignancy. 3-D tomosynthesis shows no additional findings. Assessment: BI-RADS/ACR category 2 mammogram. Benign Findings. Recommendation Routine screening mammogram of both breasts in 1 year (for women over age 40). This patient's [facility] Lifetime Breast Cancer Risk is estimated at 0.4 %. This mammogram was interpreted with the aid of an FDA-approved computer-aided dectection system. Electronically Signed By: Dameon Camejo MD 06/11/21 [id number]
== END ==
LOC: M WHC 12:01
PROVIDERS: ATTEND Internal Medicine
DX: Z12.31 Encounter for screening mammogram for malignant neoplasm of breast (principal)

== ENCOUNTER → 2021-08-27 | Outpatient (CLI) | payer MEDICARE | LOC: M PLALAB 10:11 | PROVIDERS: ATTEND Physician Assistant | DX: I48.0 Paroxysmal atrial fibrillation (principal) ==

== ENCOUNTER → 2022-04-05 | Outpatient (CLI) | payer MEDICARE ==
[2022-04-05 13:37] LABS: BASO # 0.1 10^3/uL (0.0-0.2); BASO % 1.2 % (0.0-1.0); EOS # 0.2 10^3/uL (0.0-0.5); EOS % 3.4 % (0.0-3.0); HEMATOCRIT 44.9 % (36.0-47.0); HEMOGLOBIN 15.2 g/dl (12.0-15.5); LYMPH # 2.2 10^3/uL (1.5-5.0); LYMPH % 43.3 % (24.0-44.0); MEAN CORPUSCULAR HEMOGLOBIN 33.7 pg (27.0-33.0); MEAN CORPUSCULAR HGB CONC 33.9 g/dl (32.0-36.5); MEAN CORPUSCULAR VOLUME 99.6 fl (80.0-96.0); MONO # 0.5 10^3/uL (0.0-0.8); MONO % 10.8 % (2.0-8.0); NEUTROPHILS # 2.1 10^3/uL (1.5-8.5); NEUTROPHILS % 41.1 % (36.0-66.0); PLATELET COUNT, AUTOMATED 180 10^3/uL (150-450); RED BLOOD COUNT 4.51 10^6/uL (4.00-5.40)
[2022-04-05 16:19] LABS: ALBUMIN 3.5 GM/DL (3.2-5.2); ALT/SGPT 32 U/L (12-78); BILIRUBIN,TOTAL 0.5 MG/DL (0.2-1.0); BLOOD UREA NITROGEN 19 MG/DL (7-18); CALCIUM LEVEL 9.7 MG/DL (8.8-10.2); CARBON DIOXIDE LEVEL 31 MEQ/L (21-32); CHLORIDE LEVEL 108 MEQ/L (98-107); CHOLESTEROL LEVEL 139 MG/DL (<200); CHOLESTEROL RISK RATIO 3.159 (<5); CREATININE FOR GFR 0.79 MG/DL (0.55-1.30); GLOMERULAR FILTRATION RATE > 60.0 (>32); GLUCOSE, FASTING 91 MG/DL (70-100); HDL CHOLESTEROL 44 MG/DL (>40); LDL CHOLESTEROL 69 MG/DL (<100); MAGNESIUM LEVEL 2.2 MG/DL (1.8-2.4); NON-HDL-C 95 MG/DL; POTASSIUM SERUM 4.8 MEQ/L (3.5-5.1); SODIUM LEVEL 143 MEQ/L (136-145); TOTAL PROTEIN 6.5 GM/DL (6.4-8.2); TRIGLYCERIDES LEVEL 132 MG/DL (<150)
== END ==
LOC: M PLALAB 11:40
PROVIDERS: ATTEND Internal Medicine
DX: I11.0 Hypertensive heart disease with heart failure (principal); K21.9 Gastro-esophageal reflux disease without esophagitis; E78.00 Pure hypercholesterolemia, unspecified; R94.6 Abnormal results of thyroid function studies

== ENCOUNTER → 2022-05-01 | Outpatient (REF) | payer MEDICARE | LOC: M LAB REF 18:13 | PROVIDERS: ATTEND Physician Assistant | DX: R30.0 Dysuria (principal) ==

== ENCOUNTER → 2022-07-26 | Outpatient (REF) | payer MEDICARE ==
[~2022-07-26] MED LIST changes: +SIMV-253 PO; -ZOCO20TA PO
== END ==
LOC: M PLALAB 16:54
PROVIDERS: ATTEND Nurse Practitioner Family
DX: Z12.4 Encounter for screening for malignant neoplasm of cervix (principal)
CPT/HCPCS: 87624; G0123

== ENCOUNTER → 2022-07-26 | Outpatient (CLI) | payer MEDICARE ==
[~2022-07-26] MED LIST changes: +CLIN150C17 PO; +CLOP75TA99 PO; +D-50CAP PO; +FLEC100T27 PO; +GABA-282 PO; +GARL500C2 PO; +GLUCTAB64 PO; +HYDR-3713 PO; +MIRA3350 PO; +OMEG12004 PO; -PLAV1TAB2 PO; +SLOWTAB2 PO; +VITA100065 PO
== END ==
LOC: M WHC 14:24
PROVIDERS: ATTEND Nurse Practitioner Family
DX: Z12.31 Encounter for screening mammogram for malignant neoplasm of breast (principal)

== ENCOUNTER → 2022-08-05 | Outpatient (CLI) | payer MEDICARE ==
[~2022-08-05] MED LIST changes: -CLIN150C17 PO; -CLOP75TA99 PO; -D-50CAP PO; -FLEC100T27 PO; -GABA-282 PO; -GARL500C2 PO; -GLUCTAB64 PO; -HYDR-3713 PO; -MIRA3350 PO; -OMEG12004 PO; +PLAV1TAB2 PO; -SLOWTAB2 PO; -VITA100065 PO
[2022-08-05 15:56] LABS: BASO % 0.6 % (0.0-1.0); EOS # 0.3 10^3/uL (0.0-0.5); EOS % 4.4 % (0.0-3.0); HEMATOCRIT 43.5 % (36.0-47.0); HEMOGLOBIN 14.7 g/dl (12.0-15.5); LYMPH # 2.2 10^3/uL (1.5-5.0); LYMPH % 35.4 % (24.0-44.0); MEAN CORPUSCULAR HGB CONC 33.8 g/dl (32.0-36.5); MEAN CORPUSCULAR VOLUME 100.7 fl (80.0-96.0); MONO # 0.7 10^3/uL (0.0-0.8); NEUTROPHILS # 2.9 10^3/uL (1.5-8.5); NEUTROPHILS % 47.3 % (36.0-66.0); PLATELET COUNT, AUTOMATED 186 10^3/uL (150-450); RED BLOOD COUNT 4.32 10^6/uL (4.00-5.40); WHITE BLOOD COUNT 6.2 10^3/uL (4.0-10.0)
[2022-08-05 16:27] LABS: BLOOD UREA NITROGEN 22 MG/DL (7-18); CALCIUM LEVEL 9.9 MG/DL (8.8-10.2); CARBON DIOXIDE LEVEL 29 MEQ/L (21-32); CHLORIDE LEVEL 108 MEQ/L (98-107); CREATININE FOR GFR 0.91 MG/DL (0.55-1.30); GLOMERULAR FILTRATION RATE > 60.0 (>32); GLUCOSE, FASTING 97 MG/DL (70-100); POTASSIUM SERUM 4.6 MEQ/L (3.5-5.1); SODIUM LEVEL 143 MEQ/L (136-145)
== END ==
LOC: M PLAIMG 13:04
PROVIDERS: ATTEND Physician Assistant
DX: Z01.818 Encounter for other preprocedural examination (principal); I51.7 Cardiomegaly; Z95.0 Presence of cardiac pacemaker

== ENCOUNTER → 2022-08-16 | Outpatient (CLI) | payer MEDICARE ==
[~2022-08-16] MED LIST changes: +CLOP75TA99 PO; -PLAV1TAB2 PO
== END ==
LOC: M LABSMTC 11:55
PROVIDERS: ATTEND Anesthesiology
DX: Z01.812 Encounter for preprocedural laboratory examination (principal); Z20.822 Contact with and (suspected) exposure to COVID-19

== ENCOUNTER 2022-08-19 06:11 | Day surgery (SDC) | payer MEDICARE ==
[~2022-08-19] VITALS: Ht 149.9 cm; Wt 96.3 kg
[~2022-08-19 06:11] MED LIST changes: +D-50CAP PO; +FLEC100T27 PO; +GABA-282 PO; +GARL500C2 PO; +GLUCTAB64 PO; +MIRA3350 PO; +OMEG12004 PO; +SLOWTAB2 PO; +VITA100065 PO
[2022-08-19] MEDS ORDERED: LR 1,000 ML IV SCH (06:30)
[2022-08-19] MEDS ORDERED: LIDOCAINE 2% 100MG/5ML SDV (FOR ANES.) As Ordered ONE (07:06)
[2022-08-19] MEDS ORDERED: propofoL 200 MG/20 ML VIAL As Ordered ONE (07:06)
[2022-08-19] MEDS ORDERED: LIDOCAINE 1% SDV 30ML VIAL As Ordered ONE (07:10)
[2022-08-19] MEDS ORDERED: ceFAZolin 1GM VIAL As Ordered ONE (07:10)
[2022-08-19] MEDS ORDERED: CLINDAMYCIN 900 MG in IV 1 EA IV ONE (07:20)
[2022-08-19] MEDS ORDERED: CLINDAMYCIN 600MG/50ML PREMIX BAG As Ordered ONE (07:46)
[2022-08-19] MEDS ORDERED: METOPROLOL 5 MG/5 ML VIAL As Ordered ONE (08:48)
[2022-08-19] MEDS ORDERED: HYDR-3713 PO (08:59)
[2022-08-19] MEDS ORDERED: CLIN150C17 PO (08:59)
[2022-08-19 10:00] VITALS: BP 124/66
[2022-08-20] MEDS ORDERED: UNRESOLVED CLARIFICATION ENTRY XX SCH (00:01)
== END 2022-08-19 10:05 | disposition home or self-care (01) ==
LOC: M SDC 06:11
PROVIDERS: ATTEND Urology
DX: T83.110A Breakdown (mechanical) of urinary electronic stimulator device, initial encounter (principal); Y73.2 Prosthetic and other implants, materials and accessory gastroenterology and urology devices associated with adverse incidents; I48.91 Unspecified atrial fibrillation; I10 Essential (primary) hypertension; Z95.0 Presence of cardiac pacemaker; E78.5 Hyperlipidemia, unspecified; K21.9 Gastro-esophageal reflux disease without esophagitis; G47.9 Sleep disorder, unspecified; Z88.0 Allergy status to penicillin; Z88.6 Allergy status to analgesic agent; Z88.8 Allergy status to other drugs, medicaments and biological substances; Z79.899 Other long term (current) drug therapy; Z79.01 Long term (current) use of anticoagulants
CPT/HCPCS: 64581; 64590; 76000; C1778; C1787; C1897

== ENCOUNTER → 2022-08-26 | Outpatient (REF) | payer MEDICARE ==
[~2022-08-26] MED LIST changes: +CLIN150C17 PO; +HYDR-3713 PO
[2022-08-26 16:48] LABS: APPEARANCE, URINE MANUAL CLEAR (CLEAR); COLOR, URINE MANUAL YELLOW (YELLOW); SPECIFIC GRAVITY,URINE MANUAL 1.025 (1.002-1.035)
[2022-08-26 17:02] LABS: BILIRUBIN, URINE MANUAL NEGATIVE (NEGATIVE); BLOOD URINE MANUAL NEGATIVE (NEGATIVE); GLUCOSE, URINE (UA) MANUAL NEGATIVE (NEGATIVE); KETONE, URINE MANUAL NEGATIVE (NEGATIVE); LEUKOCYTE ESTERASE, URINE MAN NEGATIVE (NEGATIVE); NITRITE, URINE MANUAL NEGATIVE (NEGATIVE); PROTEIN, URINE MANUAL NEGATIVE (NEGATIVE); UROBILINOGEN, URINE MANUAL NORMAL (NORMAL)
== END ==
LOC: M SMT 15:01
PROVIDERS: ATTEND Physician Assistant
DX: R35.0 Frequency of micturition (principal)

== ENCOUNTER → 2022-12-22 | Outpatient (CLI) | payer MEDICARE ==
[2022-12-22 15:35] LABS: HEMATOCRIT 44.8 % (36.0-47.0); HEMOGLOBIN 14.8 g/dl (12.0-15.5); MEAN CORPUSCULAR HEMOGLOBIN 32.9 pg (27.0-33.0); MEAN CORPUSCULAR VOLUME 99.6 fl (80.0-96.0); PLATELET COUNT, AUTOMATED 178 10^3/uL (150-450); WHITE BLOOD COUNT 6.7 10^3/uL (4.0-10.0)
[2022-12-22 16:00] LABS: BLOOD UREA NITROGEN 17 MG/DL (9-23); CALCIUM LEVEL 9.8 MG/DL (8.3-10.6); CARBON DIOXIDE LEVEL 32 MMOL/L (20-31); CHLORIDE LEVEL 106 MMOL/L (98-107); CREATININE FOR GFR 0.83 MG/DL (0.55-1.30); GLOMERULAR FILTRATION RATE > 60.0 (>32); GLUCOSE, FASTING 77 MG/DL (74-106); SODIUM LEVEL 142 MMOL/L (136-145)
== END ==
LOC: M PLALAB 13:30
PROVIDERS: ATTEND Physician Assistant
DX: I49.5 Sick sinus syndrome (principal)

== ENCOUNTER 2023-01-20 12:58 | Day surgery (SDC) | payer MEDICARE ==
[~2023-01-20] VITALS: Ht 149.9 cm; Wt 96.2 kg
[~2023-01-20 12:58] MED LIST changes: +VANCOMYCIN HCL 750 MG, VIAL MATE ADAPTER 1 EACH in D5W 250 ML IV ONE
[2023-01-20] MEDS ORDERED: LIDOCAINE 1% SDV 30ML VIAL As Ordered ONE (15:04)
[2023-01-20] MEDS ORDERED: NEOSPORIN TOP OINT 15GM As Ordered ONE (15:04)
[2023-01-20] MEDS ORDERED: fentaNYL 100 MCG/2 ML INJECTION As Ordered ONE (17:06)
[2023-01-20] MEDS ORDERED: MIDAZOLAM INJ 2MG/2ML VIAL As Ordered ONE (17:06)
[2023-01-20] MEDS ORDERED: LIDOCAINE 2% 100MG/5ML SDV (FOR ANES.) As Ordered ONE (17:06)
[2023-01-20] MEDS ORDERED: ONDANSETRON 4MG 2ML VIAL As Ordered ONE (17:06)
[2023-01-20] MEDS ORDERED: propofoL 200 MG/20 ML VIAL As Ordered ONE (17:06)
[2023-01-20] MEDS ORDERED: ePHEDrine SULFATE 25 MG/5 ML(5MG/ML) SYRINGE As Ordered ONE (18:08)
[2023-01-20 19:50] VITALS: BP 178/86
== END 2023-01-20 19:55 | disposition home or self-care (01) ==
LOC: M SDC 12:58
PROVIDERS: ATTEND Internal Medicine Cardiovascular Disease
DX: Z45.010 Encounter for checking and testing of cardiac pacemaker pulse generator [battery] (principal); I49.5 Sick sinus syndrome; I11.9 Hypertensive heart disease without heart failure; I48.0 Paroxysmal atrial fibrillation; E78.00 Pure hypercholesterolemia, unspecified; K21.9 Gastro-esophageal reflux disease without esophagitis; M19.90 Unspecified osteoarthritis, unspecified site; G47.30 Sleep apnea, unspecified; Z88.0 Allergy status to penicillin; Z88.8 Allergy status to other drugs, medicaments and biological substances; Z88.6 Allergy status to analgesic agent; Z79.899 Other long term (current) drug therapy; Z79.01 Long term (current) use of anticoagulants
CPT/HCPCS: 33228; C1785; J2250; J2405; J3010

== ENCOUNTER 2023-02-22 07:17 | Day surgery (SDC) | payer MEDICARE ==
[~2023-02-22] VITALS: Ht 149.9 cm; Wt 91.9 kg
[~2023-02-22 07:17] MED LIST changes: +BSS IRR 500ML/OMIDRIA 4ML IRR BAG (OR ONLY) As Ordered ONE; +CYCLOPENTOLATE 1% OPHTH SOLN 2ML BTL OD SCH; +FLEC1TAB PO; +LIDOCAINE 1% SDV 5ML VIAL As Ordered ONE; +OFLOXACIN 0.3 % (OCUFLOX) OPTH SOL 5ML OD SCH; +PHENYLEPHRINE 2.5% OPHTH SOL 2ML OD SCH; +PRES10CA2 PO; +PROPARACAINE 0.5% OPHTH SOL 15ML OD ONE; +TOBRADEX OPHTH OINT 3.5 GM As Ordered ONE; +TROPICAMIDE 1% OPHTH SOLN 15ML OD SCH; -VANCOMYCIN HCL 750 MG, VIAL MATE ADAPTER 1 EACH in D5W 250 ML IV ONE
[2023-02-22] MEDS ORDERED: LR 1,000 ML IV SCH (08:35)
[2023-02-22] MEDS ORDERED: EPINEPHrine INJ 1 MG/ML 1ML AMP As Ordered ONE (09:00)
[2023-02-22] MEDS ORDERED: fentaNYL 100 MCG/2 ML INJECTION As Ordered ONE (09:34)
[2023-02-22] MEDS ORDERED: LABETALOL 100MG/20ML VIAL As Ordered ONE (09:38)
[2023-02-22 09:50] VITALS: BP 187/88
[2023-02-22] MEDS ORDERED: MIDAZOLAM INJ 2MG/2ML VIAL As Ordered ONE (12:08)
== END 2023-02-22 10:12 | disposition home or self-care (01) ==
LOC: M SDC 07:17
PROVIDERS: ATTEND Ophthalmology
DX: H25.11 Age-related nuclear cataract, right eye (principal); I48.91 Unspecified atrial fibrillation; Z95.0 Presence of cardiac pacemaker; G47.30 Sleep apnea, unspecified; Z79.899 Other long term (current) drug therapy; Z88.6 Allergy status to analgesic agent; Z88.0 Allergy status to penicillin; Z88.8 Allergy status to other drugs, medicaments and biological substances
CPT/HCPCS: 66984; J0171; J1097; J2250; J3010; V2632

== ENCOUNTER 2023-04-05 07:23 | Day surgery (SDC) | payer MEDICARE ==
[~2023-04-05] VITALS: Ht 149.9 cm; Wt 88.9 kg
[~2023-04-05 07:23] MED LIST changes: -CYCLOPENTOLATE 1% OPHTH SOLN 2ML BTL OD SCH; +CYCLOPENTOLATE 1% OPHTH SOLN 2ML BTL OS SCH; +MIDAZOLAM INJ 2MG/2ML VIAL As Ordered ONE; -OFLOXACIN 0.3 % (OCUFLOX) OPTH SOL 5ML OD SCH; +OFLOXACIN 0.3 % (OCUFLOX) OPTH SOL 5ML OS SCH; -PHENYLEPHRINE 2.5% OPHTH SOL 2ML OD SCH; +PHENYLEPHRINE 2.5% OPHTH SOL 2ML OS SCH; -PROPARACAINE 0.5% OPHTH SOL 15ML OD ONE; +PROPARACAINE 0.5% OPHTH SOL 15ML OS ONE; -TROPICAMIDE 1% OPHTH SOLN 15ML OD SCH; +TROPICAMIDE 1% OPHTH SOLN 15ML OS SCH; +fentaNYL 100 MCG/2 ML INJECTION As Ordered ONE
[2023-04-05] MEDS ORDERED: EPINEPHrine INJ 1 MG/ML 1ML AMP As Ordered ONE (08:55)
[2023-04-05 09:41] VITALS: BP 147/73; TEMP 97.8; O2SAT 94
== END 2023-04-05 10:00 | disposition home or self-care (01) ==
LOC: M SDC 07:23
PROVIDERS: ATTEND Ophthalmology
DX: H25.12 Age-related nuclear cataract, left eye (principal); I48.91 Unspecified atrial fibrillation; Z95.0 Presence of cardiac pacemaker; G47.30 Sleep apnea, unspecified; I10 Essential (primary) hypertension; E78.5 Hyperlipidemia, unspecified; Z79.899 Other long term (current) drug therapy; Z79.01 Long term (current) use of anticoagulants; Z88.6 Allergy status to analgesic agent; Z88.0 Allergy status to penicillin; Z88.8 Allergy status to other drugs, medicaments and biological substances
CPT/HCPCS: 66984; J0171; J1097; J2250; J3010; V2632

== ENCOUNTER → 2023-07-21 | Outpatient (CLI) | payer MEDICARE ==
[~2023-07-21] MED LIST changes: -BSS IRR 500ML/OMIDRIA 4ML IRR BAG (OR ONLY) As Ordered ONE; -CYCLOPENTOLATE 1% OPHTH SOLN 2ML BTL OS SCH; -LIDOCAINE 1% SDV 5ML VIAL As Ordered ONE; -MIDAZOLAM INJ 2MG/2ML VIAL As Ordered ONE; -OFLOXACIN 0.3 % (OCUFLOX) OPTH SOL 5ML OS SCH; -PHENYLEPHRINE 2.5% OPHTH SOL 2ML OS SCH; -PROPARACAINE 0.5% OPHTH SOL 15ML OS ONE; -TOBRADEX OPHTH OINT 3.5 GM As Ordered ONE; -TROPICAMIDE 1% OPHTH SOLN 15ML OS SCH; -fentaNYL 100 MCG/2 ML INJECTION As Ordered ONE
[2023-07-21 17:56] LABS: BLOOD UREA NITROGEN 16 MG/DL (9-23); CREATININE FOR GFR 0.79 MG/DL (0.55-1.30); GLOMERULAR FILTRATION RATE > 60.0 (>32)
== END ==
LOC: M WUC 13:31
PROVIDERS: ATTEND Optometrist
DX: Z01.812 Encounter for preprocedural laboratory examination (principal)

== ENCOUNTER → 2023-07-26 | Outpatient (CLI) | payer MEDICARE ==
[~2023-07-26] MED LIST changes: +ISOVUE-370 76% 100ML VIAL ONE
== END ==
LOC: M PLAIMG 13:35
PROVIDERS: ATTEND Ophthalmology
DX: H53.2 Diplopia (principal); G31.9 Degenerative disease of nervous system, unspecified; R90.82 White matter disease, unspecified
CPT/HCPCS: 70470; Q9967

== ENCOUNTER → 2023-07-27 | Outpatient (CLI) | payer MEDICARE ==
[~2023-07-27] MED LIST changes: -ISOVUE-370 76% 100ML VIAL ONE
[2023-07-27 21:04] LABS: HEMATOCRIT 46.9 % (36.0-47.0); HEMOGLOBIN 15.3 g/dl (12.0-15.5); MEAN CORPUSCULAR HEMOGLOBIN 33.3 pg (27.0-33.0); MEAN CORPUSCULAR HGB CONC 32.6 g/dl (32.0-36.5); MEAN CORPUSCULAR VOLUME 102.2 fl (80.0-96.0); PLATELET COUNT, AUTOMATED 220 10^3/uL (150-450); RED BLOOD COUNT 4.59 10^6/uL (4.00-5.40); WHITE BLOOD COUNT 7.7 10^3/uL (4.0-10.0)
[2023-07-27 21:26] LABS: CREATININE, URINE 181.7 MG/DL
[2023-07-27 21:28] LABS: ALBUMIN 3.6 G/DL (3.2-5.2); ALKALINE PHOSPHATASE 131 U/L (46-116); ALT/SGPT 30 U/L (7.0-40); AST/SGOT 25 U/L (<34); BILIRUBIN,TOTAL 0.5 MG/DL (0.3-1.2); BLOOD UREA NITROGEN 23 MG/DL (9-23); CALCIUM LEVEL 10.2 MG/DL (8.3-10.6); CARBON DIOXIDE LEVEL 34 MMOL/L (20-31); CHLORIDE LEVEL 107 MMOL/L (98-107); CREATININE FOR GFR 0.86 MG/DL (0.55-1.30); GLOMERULAR FILTRATION RATE > 60.0 (>32); GLUCOSE, FASTING 85 MG/DL (74-106); POTASSIUM SERUM 4.3 MMOL/L (3.5-5.1); SODIUM LEVEL 146 MMOL/L (136-145); TOTAL PROTEIN 6.9 G/DL (5.7-8.2)
[2023-07-27 21:29] LABS: FREE T4 1.04 NG/DL (0.89-1.76)
[2023-07-27 21:30] LABS: THYROID STIMULATING HORMONE 3.955 uIU/ML (0.55-4.78); TOTAL 25(OH) VITAMIN D 57.8 NG/ML (20.0-100.0)
[2023-07-27 21:31] LABS: VITAMIN B12 LEVEL 575 PG/ML (211-911)
[2023-07-27 21:55] LABS: HEMOGLOBIN A1c 4.8 % (4.0-6.0)
[2023-07-27 22:38] LABS: C REACTIVE PROTEIN QUANTITATIV < 0.40 MG/DL (<1.0)
== END ==
LOC: M WUC 15:13
PROVIDERS: ATTEND Internal Medicine Hematology
DX: E78.00 Pure hypercholesterolemia, unspecified (principal); Z79.899 Other long term (current) drug therapy

== ENCOUNTER → 2023-08-01 | Outpatient (CLI) | payer MEDICARE | LOC: M WHC 11:15 | PROVIDERS: ATTEND Nurse Practitioner Family | DX: Z12.31 Encounter for screening mammogram for malignant neoplasm of breast (principal) ==

== ENCOUNTER → 2023-08-01 | Outpatient (CLI) | payer MEDICARE | LOC: M WHC 12:27 | PROVIDERS: ATTEND Internal Medicine Hematology | DX: M85.88 Other specified disorders of bone density and structure, other site (principal); Z13.820 Encounter for screening for osteoporosis ==

== ENCOUNTER 2023-12-30 10:12 | Emergency (ER) | payer MEDICARE ==
[~2023-12-30] VITALS: Ht 149.9 cm; Wt 90.7 kg
[2023-12-30 12:34] LABS: BASO % 0.5 % (0.0-1.0); EOS % 0.5 % (0.0-3.0); HEMATOCRIT 45.2 % (36.0-47.0); HEMOGLOBIN 15.2 g/dl (12.0-15.5); LYMPH # 2.1 10^3/uL (1.5-5.0); LYMPH % 31.8 % (24.0-44.0); MEAN CORPUSCULAR HEMOGLOBIN 32.7 pg (27.0-33.0); MEAN CORPUSCULAR HGB CONC 33.6 g/dl (32.0-36.5); MEAN CORPUSCULAR VOLUME 97.2 fl (80.0-96.0); MONO # 0.4 10^3/uL (0.0-0.8); MONO % 6.6 % (2.0-8.0); NEUTROPHILS % 60.4 % (36.0-66.0); PLATELET COUNT, AUTOMATED 190 10^3/uL (150-450); RED BLOOD COUNT 4.65 10^6/uL (4.00-5.40); WHITE BLOOD COUNT 6.7 10^3/uL (4.0-10.0)
[2023-12-30 12:59] LABS: BLOOD UREA NITROGEN 17 MG/DL (9-23); CALCIUM LEVEL 10.1 MG/DL (8.3-10.6); CARBON DIOXIDE LEVEL 29 MMOL/L (20-31); CHLORIDE LEVEL 106 MMOL/L (98-107); CK-MB VALUE MASS 3.4 NG/ML (<3.6); CREATININE FOR GFR 0.72 MG/DL (0.55-1.30); GLOMERULAR FILTRATION RATE > 60.0 (>32); GLUCOSE, FASTING 101 MG/DL (74-106); POTASSIUM SERUM 4.5 MMOL/L (3.5-5.1); SODIUM LEVEL 139 MMOL/L (136-145)
[2023-12-30 13:06] LABS: CPK CREATINE PHOSPHOKINASE 58 U/L (34-145); MB/CK RELATIVE INDEX 5.86 (< OR =4)
[2023-12-30] MEDS ORDERED: ISOVUE-370 76% 100ML VIAL As Ordered ONE (13:22)
[2023-12-30 14:07] LABS: CK-MB VALUE MASS 3.4 NG/ML (<3.6)
[2023-12-30 14:08] LABS: MB/CK RELATIVE INDEX 6.07 (< OR =4)
[2023-12-30] MEDS ORDERED: HEPARIN SOD (PORCINE) 5000UNITS/ML 1ML VIAL/SYRINGE IV PRN (15:05)
[2023-12-30] MEDS ORDERED: HEPARIN DRIP 25,000 UNITS in IV 1 EA IV SCH (15:05)
[2023-12-30] MEDS ORDERED: HEPARIN SOD (PORCINE) 5000UNITS/ML 1ML VIAL/SYRINGE IV ONE (15:05)
[2023-12-30 16:12] VITALS: BP 183/80
[2023-12-30] MEDS: METOPROLOL TART 25 MG TABLET PO ONE (16:12)
[2023-12-30] MEDS ORDERED: METO1TAB7 PO (17:06)
[2023-12-30] MEDS ORDERED: SPIR-10 PO (17:06)
[2023-12-30] MEDS ORDERED: POLY17PO18 PO (17:06)
[2023-12-30] MEDS ORDERED: TRIA1CR80 TOP (17:06)
[2023-12-30] MEDS ORDERED: HOME MED LIST COMPLETE! XX SCH (17:10)
[2023-12-30 19:14] LABS: RSV AMPLIFICATION NEGATIVE (NEGATIVE)
[2023-12-30] MEDS: APIXABAN 5 MG TAB (ELIQUIS) PO ONE (20:06)
[2023-12-30] MEDS: SIMVASTATIN 20 MG TAB PO ONE (20:06)
[2023-12-30] MEDS: FLECAINIDE 50MG TABLET PO STA (20:07)
[2023-12-30 22:26] VITALS: BP 165/79; TEMP 97.7; O2SAT 99
== END 2023-12-30 22:35 | disposition short-term general hospital (02) ==
LOC: M ED 10:12
DX: I49.9 Cardiac arrhythmia, unspecified (principal); R79.89 Other specified abnormal findings of blood chemistry; I24.89 Other forms of acute ischemic heart disease; I11.0 Hypertensive heart disease with heart failure; K21.9 Gastro-esophageal reflux disease without esophagitis; I50.22 Chronic systolic (congestive) heart failure; Z88.0 Allergy status to penicillin; Z88.8 Allergy status to other drugs, medicaments and biological substances; Z79.1 Long term (current) use of non-steroidal anti-inflammatories (NSAID); Z79.899 Other long term (current) drug therapy; Z79.810 Long term (current) use of selective estrogen receptor modulators (SERMs)
CPT/HCPCS: 36415; 71045; 71275; 80048; 82550; 82553; 83735; 84484; 85025; 85730; 87631; 93005; 93041; 94760; 99285; Q9967

== ENCOUNTER → 2024-02-08 | Outpatient (CLI) | payer MEDICARE ==
[~2024-02-08] MED LIST changes: -GARL500C2 PO; +GARL500C6 PO; +POLY17PO18 PO; +SPIR-10 PO; +TRIA1CR80 TOP
[2024-02-08 17:39] LABS: BASO # 0.1 10^3/uL (0.0-0.2); BASO % 1.4 % (0.0-1.0); EOS # 0.1 10^3/uL (0.0-0.5); EOS % 2.2 % (0.0-3.0); HEMATOCRIT 43.9 % (36.0-47.0); HEMOGLOBIN 15.2 g/dl (12.0-15.5); LYMPH # 2.4 10^3/uL (1.5-5.0); LYMPH % 40.6 % (24.0-44.0); MEAN CORPUSCULAR HEMOGLOBIN 34.9 pg (27.0-33.0); MEAN CORPUSCULAR HGB CONC 34.6 g/dl (32.0-36.5); MEAN CORPUSCULAR VOLUME 100.9 fl (80.0-96.0); MONO # 0.6 10^3/uL (0.0-0.8); MONO % 10.3 % (2.0-8.0); NEUTROPHILS # 2.7 10^3/uL (1.5-8.5); NEUTROPHILS % 45.3 % (36.0-66.0); PLATELET COUNT, AUTOMATED 234 10^3/uL (150-450); RED BLOOD COUNT 4.35 10^6/uL (4.00-5.40); WHITE BLOOD COUNT 5.9 10^3/uL (4.0-10.0)
== END ==
LOC: M WUC 11:38
PROVIDERS: ATTEND Nurse Practitioner Family
DX: L03.032 Cellulitis of left toe (principal)

== ENCOUNTER → 2024-02-24 | Outpatient (CLI) | payer MEDICARE ==
[2024-02-24 13:41] LABS: ALBUMIN 3.5 G/DL (3.2-5.2); ALKALINE PHOSPHATASE 119 U/L (46-116); ALT/SGPT 34 U/L (7.0-40); AST/SGOT 20 U/L (<34); BILIRUBIN,TOTAL 0.6 MG/DL (0.3-1.2); BLOOD UREA NITROGEN 23 MG/DL (9-23); CALCIUM LEVEL 9.9 MG/DL (8.3-10.6); CARBON DIOXIDE LEVEL 27 MMOL/L (20-31); CHLORIDE LEVEL 108 MMOL/L (98-107); CHOLESTEROL LEVEL 145 MG/DL (<200); CHOLESTEROL RISK RATIO 3.06 (<5); CREATININE FOR GFR 0.79 MG/DL (0.55-1.30); GLOMERULAR FILTRATION RATE > 60.0 (>32); GLUCOSE, FASTING 90 MG/DL (74-106); HDL CHOLESTEROL 47.3 MG/DL (>40); LDL CHOLESTEROL 66.1 MG/DL (<100); NON-HDL-C 97.7 MG/DL; POTASSIUM SERUM 4.7 MMOL/L (3.5-5.1); SODIUM LEVEL 142 MMOL/L (136-145); THYROID STIMULATING HORMONE 11.207 uIU/ML (0.55-4.78); TOTAL PROTEIN 6.6 G/DL (5.7-8.2); TRIGLYCERIDES LEVEL 158 MG/DL (<150)
== END ==
LOC: M WUC 10:17
PROVIDERS: ATTEND Physician Assistant
DX: I48.0 Paroxysmal atrial fibrillation (principal); I25.10 Atherosclerotic heart disease of native coronary artery without angina pectoris

== ENCOUNTER → 2024-03-27 | Outpatient (CLI) | payer MEDICARE | LOC: M PLAIMG 12:29 | PROVIDERS: ATTEND Physician Assistant | DX: I34.0 Nonrheumatic mitral (valve) insufficiency (principal); I35.1 Nonrheumatic aortic (valve) insufficiency; I27.20 Pulmonary hypertension, unspecified ==

== ENCOUNTER → 2024-05-02 | Outpatient (CLI) | payer MEDICARE ==
[2024-05-02 15:42] LABS: ALBUMIN 3.6 G/DL (3.2-5.2); ALKALINE PHOSPHATASE 113 U/L (46-116); ALT/SGPT 30 U/L (7.0-40); AST/SGOT 18 U/L (<34); BILIRUBIN,TOTAL 0.8 MG/DL (0.3-1.2); BLOOD UREA NITROGEN 16 MG/DL (9-23); CALCIUM LEVEL 10.4 MG/DL (8.3-10.6); CARBON DIOXIDE LEVEL 30 MMOL/L (20-31); CHLORIDE LEVEL 109 MMOL/L (98-107); CHOLESTEROL LEVEL 135 MG/DL (<200); CHOLESTEROL RISK RATIO 3.13 (<5); CREATININE FOR GFR 0.85 MG/DL (0.55-1.30); GLOMERULAR FILTRATION RATE > 60.0 (>32); GLUCOSE, FASTING 91 MG/DL (74-106); LDL CHOLESTEROL 66.6 MG/DL (<100); SODIUM LEVEL 143 MMOL/L (136-145); TOTAL PROTEIN 6.5 G/DL (5.7-8.2); TRIGLYCERIDES LEVEL 127 MG/DL (<150)
[2024-05-02 15:44] LABS: THYROID STIMULATING HORMONE 4.995 uIU/ML (0.55-4.78)
[2024-05-02 16:14] LABS: BASO # 0.1 10^3/uL (0.0-0.2); BASO % 0.8 % (0.0-1.0); EOS # 0.1 10^3/uL (0.0-0.5); EOS % 1.6 % (0.0-3.0); HEMATOCRIT 45.1 % (36.0-47.0); LYMPH # 2.1 10^3/uL (1.5-5.0); LYMPH % 34.2 % (24.0-44.0); MEAN CORPUSCULAR HEMOGLOBIN 32.7 pg (27.0-33.0); MEAN CORPUSCULAR VOLUME 98.3 fl (80.0-96.0); MONO # 0.6 10^3/uL (0.0-0.8); MONO % 10.1 % (2.0-8.0); NEUTROPHILS # 3.3 10^3/uL (1.5-8.5); PLATELET COUNT, AUTOMATED 191 10^3/uL (150-450); RED BLOOD COUNT 4.59 10^6/uL (4.00-5.40); WHITE BLOOD COUNT 6.3 10^3/uL (4.0-10.0)
[2024-05-02 16:16] LABS: MEAN CORPUSCULAR HGB CONC 33.3 g/dl (32.0-36.5)
== END ==
LOC: M PLALAB 14:04
PROVIDERS: ATTEND Internal Medicine Hematology
DX: R94.6 Abnormal results of thyroid function studies (principal); I25.10 Atherosclerotic heart disease of native coronary artery without angina pectoris

== ENCOUNTER → 2024-07-29 | Outpatient (REF) | payer MEDICARE ==
[~2024-07-29] MED LIST changes: +GABA-1172 PO; +GABA-1490 PO; -GABA-282 PO; -GABA600T4 PO
== END ==
LOC: M LAB REF 16:51
PROVIDERS: ATTEND Registered Nurse
DX: N39.0 Urinary tract infection, site not specified (principal)

== ENCOUNTER → 2024-12-07 | Outpatient (CLI) | payer MEDICARE ==
[~2024-12-07] MED LIST changes: +E-Z-GAS II EFFERVESCENT PACKET (SODIUM BICARB./CITRIC ACID/SIMETHICONE) As Ordered ONE; +E-Z-HD 98% w/w 340GM SUSP BTL As Ordered ONE; +E-Z-PAQUE 96% w/w SUSP 176GM BTL As Ordered ONE
== END ==
LOC: M RAD 11:01
PROVIDERS: ATTEND Student in an Organized Health Care Education/Training Program
DX: R13.12 Dysphagia, oropharyngeal phase (principal); K22.89 Other specified disease of esophagus; Q31.3 Laryngocele

== ENCOUNTER → 2025-02-21 | Outpatient (REF) | payer MEDICARE ==
[~2025-02-21] MED LIST changes: -E-Z-GAS II EFFERVESCENT PACKET (SODIUM BICARB./CITRIC ACID/SIMETHICONE) As Ordered ONE; -E-Z-HD 98% w/w 340GM SUSP BTL As Ordered ONE; -E-Z-PAQUE 96% w/w SUSP 176GM BTL As Ordered ONE
== END ==
LOC: M LAB REF 17:18
PROVIDERS: ATTEND Nurse Practitioner Family
DX: L03.032 Cellulitis of left toe (principal)

== ENCOUNTER → 2025-05-28 | Outpatient (CLI) | payer MEDICARE ==
[~2025-05-28] MED LIST changes: +SLOW1TAB3 PO; -SLOWTAB2 PO
[2025-05-28 18:16] LABS: PLATELET COUNT, AUTOMATED 300 10^3/uL (150-450)
[2025-05-28 18:48] LABS: ALT/SGPT 57.0 U/L (7.0-40); AST/SGOT 54.0 U/L (<34); CALCIUM LEVEL 9.9 MG/DL (8.3-10.6); CARBON DIOXIDE LEVEL 29.0 MMOL/L (20-31); CHLORIDE LEVEL 107.0 MMOL/L (98-107); CREATININE FOR GFR 0.85 MG/DL (0.55-1.30); GLOMERULAR FILTRATION RATE 65.9 (>32); POTASSIUM SERUM 5.4 MMOL/L (3.5-5.1); SODIUM LEVEL 142.0 MMOL/L (136-145)
[2025-05-28 18:50] LABS: FREE T4 1.37 NG/DL (0.89-1.76)
== END ==
LOC: M PLALAB 14:49
DX: I51.7 Cardiomegaly (principal); J81.1 Chronic pulmonary edema; K57.32 Diverticulitis of large intestine without perforation or abscess without bleeding; E87.71 Transfusion associated circulatory overload; E03.9 Hypothyroidism, unspecified; R74.01 Elevation of levels of liver transaminase levels; R06.02 Shortness of breath

== ENCOUNTER → 2025-06-20 | Outpatient (REF) | payer MEDICARE | LOC: M LAB REF 17:32 | PROVIDERS: ATTEND Nurse Practitioner Family | DX: R30.0 Dysuria (principal); R31.0 Gross hematuria ==